=== PATIENT | male | born 1940 | race Caucasian/White ===

== ENCOUNTER 2020-11-02 06:07 | Outpatient (REF) | payer MEDICARE, SELFPAY ==
[2020-11-02 11:54] LABS: Glucose Urine UA NEG (NEG); Leukocyte Esterase Urine 2+ (NEG); Nitrite Urine NEG (NEG); Specific Gravity - Urine 1.015 (1.005-1.025); Urine Blood TRACE (NEG); Urine Ketones NEG (NEG); Urine Protein NEG (NEG-TRACE)
[2020-11-02 11:55] LABS: Hematocrit 44.9 % (42-52); Hemoglobin 15.1 g/dl (14.0-18.0); Mean Corpuscular HGB Conc 33.6 g/dl (31.0-36.0); Mean Corpuscular Hemoglobin 32.5 pg (27.0-33.0); Mean Corpuscular Volume 96.6 fL (80-98); Mean Platelet Volume 10.5 fL (9.4-12.4); Platelet Count 256 X10*3/uL (160-400); Red Blood Count 4.65 X10*6/uL (4.60-5.80); Red Cell Distribution Width 12.6 % (11.0-16.0); White Blood Count 6.5 X10*3/uL (4.8-10.8)
[2020-11-02 12:06] LABS: Appearance Urine HAZY; Color Urine YELLOW
[2020-11-02 12:14] LABS: Alanine Aminotransferase 15 U/L (0-40); Albumin Level 4.2 g/dL (3.5-5.0); Alkaline Phosphatase 62 U/L (39-117); Anion Gap 12 (12-20); Aspartate Amino Transferase 15 U/L (5-37); Bilirubin Total 0.7 mg/dL (0.0-1.0); Blood Urea Nitrogen 18 mg/dL (9-16); Calcium 9.1 mg/dL (8.4-10.2); Carbon Dioxide 24 mmol/L (22-29); Chloride 108 mmol/L (96-108); Cholesterol 163 mg/dL; Estimated Glomerular Filt Rate > 60; Glucose Fasting 93 mg/dL (60-99); HDL Cholesterol 55 mg/dL; LDL Cholesterol Calculated 94 mg/dl; Potassium 4.1 mmol/L (3.3-5.1); Sodium 140 mmol/L (135-145); Total Protein 7.2 g/dL (6.5-8.0); Triglycerides 73 mg/dL
[2020-11-02 12:27] LABS: Prostate Specific Antigen Scr 0.86 ng/mL (<0.05-4.0)
[2020-11-02 12:30] LABS: Bacteria Urine TRACE /LPF; RBC Urine 0-2 /HPF (0); Squamous Epithelial Cell Urine TRACE /LPF
== END 2020-11-02 06:08 | disposition home or self-care (01) ==
LOC: HO.HMGCLDS 06:07
PROVIDERS: PCP Internal Medicine; Visit Provider Internal Medicine
DX: Z12.5 Encounter for screening for malignant neoplasm of prostate (principal); E78.5 Hyperlipidemia, unspecified; I10 Essential (primary) hypertension
CPT/HCPCS: 36415; 80053; 80061; 81001; 84153; 85027

== ENCOUNTER 2020-11-05 06:05 | Outpatient (REF) | payer MEDICARE, SELFPAY ==
[2020-11-05 11:35] LABS: Urine Cytology See Pathology rpt
[2020-11-05 12:10] LABS: Appearance Urine HAZY; Color Urine YELLOW; Glucose Urine UA NEG (NEG); Leukocyte Esterase Urine 2+ (NEG); Nitrite Urine NEG (NEG); Urine Blood TRACE (NEG); Urine Ketones NEG (NEG); Urine Protein NEG (NEG-TRACE)
[2020-11-05 12:53] LABS: RBC Urine 0-2 /HPF (0); Squamous Epithelial Cell Urine TRACE /LPF; WBC Urine 30-49 /HPF (0-4)
[2020-11-05 12:54] LABS: Bacteria Urine 1+ /LPF; Mucus Urine 1+ /LPF
== END 2020-11-05 06:06 | disposition home or self-care (01) ==
LOC: HO.HMGCLDS 06:05
PROVIDERS: PCP Internal Medicine; Visit Provider Nurse Practitioner Family
DX: R31.29 Other microscopic hematuria (principal)
CPT/HCPCS: 81001; 87086; 87088; 87186; 88112

== ENCOUNTER 2020-11-10 13:42 | Outpatient (REF) | payer MEDICARE, SELFPAY ==
--- NOTE | ~2020-11-10 | US_ITS ---
EXAMINATION: US PELVIS LIMITED (BLADDER) CLINICAL INFORMATION: Microscopic hematuria. COMPARISON: None TECHNIQUE: Real-time imaging of the bladder. FINDINGS: BLADDER: The bladder wall appears slightly thickened. No stone or mass is seen.. Bilateral ureteral jets are demonstrated. Prevoid bladder volume is 370 mL. Postvoid bladder volume is 25 mL. The prostate gland is enlarged and protrudes into the base of the bladder. The prostate gland measures 4.6 x 5 x 4.6 cm. There is a 2 cm cyst in the prostate gland. US/US bladder IMPRESSION: Slightly thickened bladder. No significant post void bladder residual. Enlarged prostate gland that protrudes into the base of the bladder.
== END 2020-11-10 13:43 | disposition home or self-care (01) ==
LOC: HO.HMGCX 13:42
PROVIDERS: PCP Internal Medicine; Visit Provider Internal Medicine
DX: R31.29 Other microscopic hematuria (principal); N39.0 Urinary tract infection, site not specified
CPT/HCPCS: 76857

== ENCOUNTER 2020-11-16 10:00 | Outpatient (REF) | payer MEDICARE, SELFPAY ==
[2020-11-16 12:18] LABS: Appearance Urine CLEAR; Color Urine YELLOW; Glucose Urine UA NEG (NEG); Leukocyte Esterase Urine NEG (NEG); Nitrite Urine NEG (NEG); Urine Blood TRACE (NEG); Urine Ketones NEG (NEG); Urine Protein NEG (NEG-TRACE)
[2020-11-16 12:50] LABS: RBC Urine 0-2 /HPF (0); Squamous Epithelial Cell Urine 2+ /LPF; WBC Urine 0-2 /HPF (0-4)
== END 2020-11-16 10:01 | disposition home or self-care (01) ==
LOC: HO.HMGCLDS 10:00
PROVIDERS: PCP Internal Medicine; Visit Provider Internal Medicine
DX: I10 Essential (primary) hypertension (principal); E78.5 Hyperlipidemia, unspecified
CPT/HCPCS: 81001

== ENCOUNTER 2021-12-15 06:11 | Outpatient (REF) | payer MEDICARE, SELFPAY ==
[2021-12-15 11:16] LABS: Hematocrit 45.3 % (42.0-52.0); Hemoglobin 15.3 g/dl (14.0-18.0); Mean Corpuscular HGB Conc 33.8 g/dl (31.0-36.0); Mean Corpuscular Hemoglobin 31.9 pg (27.0-33.0); Mean Corpuscular Volume 94.6 fL (80.0-98.0); Mean Platelet Volume 10.4 fL (9.4-12.4); Platelet Count 273 X10*3/uL (160-400); Red Blood Count 4.79 X10*6/uL (4.60-5.80); Red Cell Distribution Width 12.6 % (11.0-16.0); White Blood Count 7.1 X10*3/uL (4.8-10.8)
[2021-12-15 11:38] LABS: Alanine Aminotransferase 15 U/L (0-40); Albumin Level 4.1 g/dL (3.5-5.0); Alkaline Phosphatase 64 U/L (39-117); Anion Gap 13 (12-20); Aspartate Amino Transferase 16 U/L (5-37); Bilirubin Total 0.5 mg/dL (0.0-1.0); Blood Urea Nitrogen 11 mg/dL (9-16); Calcium 9.1 mg/dL (8.4-10.2); Carbon Dioxide 25 mmol/L (22-29); Chloride 107 mmol/L (96-108); Cholesterol 159 mg/dL; Estimated Glomerular Filt Rate > 60; Glucose Fasting 93 mg/dL (60-99); HDL Cholesterol 53 mg/dL; LDL Cholesterol Calculated 92 mg/dl; Potassium 4.2 mmol/L (3.3-5.1); Sodium 141 mmol/L (135-145); Total Protein 7.3 g/dL (6.5-8.0); Triglycerides 72 mg/dL
[2021-12-15 12:02] LABS: Prostate Specific Antigen Scr 0.77 ng/mL (<0.05-4.0)
== END 2021-12-15 06:12 | disposition home or self-care (01) ==
LOC: HO.HMGCLDS 06:11
PROVIDERS: PCP Internal Medicine; Visit Provider Internal Medicine
DX: E78.5 Hyperlipidemia, unspecified (principal); I10 Essential (primary) hypertension
CPT/HCPCS: 36415; 80053; 80061; 84153; 85027

== ENCOUNTER 2021-12-22 12:20 | Outpatient (REF) | payer MEDICARE, SELFPAY ==
--- NOTE | ~2021-12-22 | XR_ITS ---
EXAMINATION: XR HIP, LEFT CLINICAL INFORMATION: Pain in left hip COMPARISON: None TECHNIQUE: Two views of the left hip. FINDINGS: There is moderate loss of left hip joint with subchondral cystic changes and mild sclerosis. There are periarticular enthesophytes. No visible acute fracture or dislocation. The acetabulum is unremarkable. XR/XR hip LT min 2V IMPRESSION: Moderate to severe left hip joint arthritic changes. No visible acute fracture or dislocation seen.
== END 2021-12-22 12:21 | disposition home or self-care (01) ==
LOC: HO.HMGCX 12:20
PROVIDERS: PCP Internal Medicine; Visit Provider Internal Medicine
DX: M25.552 Pain in left hip (principal)
CPT/HCPCS: 73502

== ENCOUNTER 2022-01-25 | Outpatient (REF) | payer MEDICARE, SELFPAY ==
--- NOTE | ~2022-01-25 | XR_ITS ---
EXAMINATION: XR PELVIS CLINICAL INFORMATION: Pain COMPARISON: Previous x-ray December 2021 TECHNIQUE: AP view of the pelvis. FINDINGS: There is severe bilateral hip arthritis with joint space narrowing and osteophyte formation and some subchondral cyst formation. No fracture or dislocation. There are degenerative changes of the visualized lower lumbar spine. There is evidence of atherosclerotic disease. XR/XR pelvis 1-2V IMPRESSION: Severe bilateral hip arthritis.
== END 2022-01-25 00:01 | disposition home or self-care (01) ==
LOC: HO.HOSX
PROVIDERS: Visit Provider Physician Assistant
DX: M16.12 Unilateral primary osteoarthritis, left hip (principal)
CPT/HCPCS: 72170; 99202

== ENCOUNTER 2022-01-27 09:00 | Outpatient (RCR) | payer MEDICARE, SELFPAY ==
--- NOTE | 2021-12-26 15:46 | MHC.PT.EP ---
[facility] [place] Office [place] Office [place] Office [address] [phone] F: [phone] F: [phone] F: [phone] F: [phone] Physical Therapy Plan of Care Date of Evaluation: Date of Surgery: Diagnosis: pain in L hip. Assessment: Pt is an 81 y/o male referred to PT for eval and treat of L hip pain who presents with L hip dysfunction resulting in decreased tolerance for standing, walking, and performing HH chores secondary to decreased L > R hip ROM, decreased hip strength, increased L glute and piriformis tension, gait abnormality and pain. Pt is deemed an appropriate candidate to receive skilled PT in order to address his physical limitations to improve his functional ability. Frequency and Duration: The patient will be seen 2 x / wk x 5 wks. Short Term Goals: Initiate HEP. Improve baseline pain to < 4/10; initial 6-7/10. [place] Goals: I with HEP. Pt will be able to walk 2 blocks with no difficulty; initial: quite a bit of difficulty. Pt will be able to stand 1 hour with at most a little bit of difficulty; initial: quite a bit of difficulty. Improve L hip abd MMT by at least 1/2 MMT. Treatment Plan: Modalities to reduce pain, spasms and effusion. Manual therapy to restore motion and function. Therapeutic exercise to improve strength and flexibility. Neuromuscular re-education for posture and balance. Therapeutic activities to return to functional activities of daily living. Electronically signed by: Eliazar Soni PT. Please sign and return to therapist. Thank you for your referral.
--- NOTE | 2022-01-27 16:48 | MHC.PT.DC ---
[facility] [place] Office [place] Office [place] Office [address] Rom[address] [phone] F: [phone] F: [phone] F: [phone] F: [phone] Physical Therapy Discharge Report Diagnosis: pain in L hip. Date of Surgery: Date of Evaluation: 12/26/21 Date of Discharge: 01/27/22 Treatments to Date: 9 Cancellations to Date: No Shows to Date: Discharge Status: Improved Function Independent with HEP Discharge Summary: Zheng has been an active participant in his therapy and has significantly improved his pain and tolerance for walking and standing. He persists with some discomfort though reports he is able to do everything he needs to without significant pain. Pt is in agreement with DC as he is I with his HEP and is improved of his Sx. Electronically signed by: Eliazar Soni PT. Please sign and return to therapist. Thank you for your referral.
== END 2022-01-27 16:49 | disposition home or self-care (01) ==
LOC: HO.PTCHIC 09:00
PROVIDERS: PCP Internal Medicine; Visit Provider Internal Medicine
DX: M25.552 Pain in left hip (principal)
CPT/HCPCS: 97110; 97140; 97161; 97530

== ENCOUNTER 2022-02-15 12:58 | Outpatient (REF) | payer MEDICARE, SELFPAY ==
[2022-02-15 14:29] LABS: C Reactive Protein 9.02 mg/dL (< or = 0.50)
[2022-02-15 15:31] LABS: Rheumatoid Factor < 13.0 IU/mL (<15.0)
[2022-02-16 09:08] LABS: Lyme Abs Screen <0.90 index
== END 2022-02-15 12:59 | disposition home or self-care (01) ==
LOC: HO.HMGCLDS 12:58
PROVIDERS: PCP Internal Medicine; Visit Provider Internal Medicine
DX: M10.9 Gout, unspecified (principal); M65.9 Synovitis and tenosynovitis, unspecified
CPT/HCPCS: 36415; 84550; 86140; 86431; 86617; 86618

== ENCOUNTER → 2022-02-20 10:00 | Outpatient (BNVA) | payer MEDICARE, SELFPAY | PROVIDERS: PCP Internal Medicine; Visit Provider Orthopaedic Surgery | DX: M16.12 Unilateral primary osteoarthritis, left hip (principal) | CPT/HCPCS: 99212 ==

== ENCOUNTER 2022-06-14 06:04 | Outpatient (REF) | payer MEDICARE, SELFPAY ==
[2022-06-14 11:50] LABS: Alanine Aminotransferase 13 U/L (0-40); Alkaline Phosphatase 68 U/L (39-117); Anion Gap 11 (12-20); Aspartate Amino Transferase 16 U/L (5-37); Bilirubin Total 0.7 mg/dL (0.0-1.0); Blood Urea Nitrogen 17 mg/dL (9-16); Calcium 9.3 mg/dL (8.4-10.2); Carbon Dioxide 26 mmol/L (22-29); Chloride 109 mmol/L (96-108); Cholesterol 155 mg/dL; Estimated Glomerular Filt Rate > 60; Glucose Fasting 92 mg/dL (60-99); HDL Cholesterol 48 mg/dL; LDL Cholesterol Calculated 88 mg/dl; Potassium 4.2 mmol/L (3.3-5.1); Sodium 142 mmol/L (135-145); Total Protein 6.9 g/dL (6.5-8.0); Triglycerides 96 mg/dL
== END 2022-06-14 06:05 | disposition home or self-care (01) ==
LOC: HO.HMGCLDS 06:04
PROVIDERS: PCP Internal Medicine; Visit Provider Internal Medicine
DX: E78.5 Hyperlipidemia, unspecified (principal); I10 Essential (primary) hypertension
CPT/HCPCS: 36415; 80053; 80061

== ENCOUNTER 2022-09-19 09:21 | Outpatient (AMB) | payer MEDICARE, SELFPAY ==
[2022-09-19 10:12] VITALS: BP 120/70; PULSE 56; O2SAT 98; BMI 26.3
--- NOTE | 2022-09-19 10:12 | MHC.PC.OV ---
Vital Signs 09/19/22 10:12 Height 5 ft 9 in Weight 178 lb BMI 26.3 BP 120/70 Blood Pressure Location Rt brachial Position Sitting Pulse 56 Pulse Source Pulse Oximeter Pulse Oximetry (%) 98 Oxygen Delivery Method Room Air Intake Visit Reasons: 3m follow up Intake Note: Pt is here today for 3 months follow up visit on rash and sciatica. Pt states that he used the cream he was prescribed and it cleared the rash. Allergies No Known Allergies Allergy (Verified 09/19/22 10:22) Medication List - Last Reconciled 09/19/22 by Ines Mcdowell MD aspirin (Adult Low Dose Aspirin) 81 mg PO DAILY coenzyme Q10 (CoQ-10) 100 mg PO DAILY glucosamine-chondroitin 250-200 mg (Osteo Bi-Flex) 2 tabs PO TID indomethacin ER 75 mg PO BEDTIME lovastatin 40 mg PO DAILY metoprolol succinate ER 25 mg PO DAILY triamcinolone acetonide 0.1% 1 appl topical DAILY Tobacco use date assessed: 06/20/22 Dental Screening Dental Screen Date: 09/19/22 Did you have a dental visit in the last 12 months?: Yes Did you have a dental problem in the last 6 months where you did not have access to dental care?: No Was dental information given to patient?: Patient has dentist HPI 3m follow up HPI Details Pt presents for f/u sciatica resolved. HTN and hyperlipid, stable on meds. [facility] Medical History (Updated 09/19/22 @ 10:54 by Ines Mcdowell MD) Annual physical exam Cataract HTN (hypertension) Hyperlipidemia Tobacco consumption UTI (urinary tract infection) Surgical History H/O colonoscopy Hx of hernia repair No pertinent past surgical history Family History Father Stomach cancer Mother No problems noted. Social History Housing: House Alcohol intake: never Patient Tobacco Use Status: Current someday Tobacco user Tobacco use type: Cigar e-Cigarette/Vaping Use: Never Used Current occupational status: retired Cognitive needs: No Hearing needs: No Vision needs: Yes Questionnaire Thrive Questionnaire Date Thrive assessed: 06/20/22 RADHA-7 AMB Questionnaire RADHA-7 Date RADHA - 7 assessed: 06/20/22 Source: Developed by DrsEbony Gregory, Angelica Lundberg, Joce Horne and colleagues, with an educational digna from [employer]. Review of Systems Const All systems reviewed & are unremarkable except as noted in HPI and below Reports no additional complaints Eyes Reports no additional complaints ENT Reports no additional complaints Card Reports no additional complaints Resp Reports no additional complaints GI Reports no additional complaints Physical exam (Primary Care) Vital Signs: Last Vital Signs Pulse 56 09/19/22 10:12 BP 120/70 09/19/22 10:12 Pulse Ox 98 09/19/22 10:12 Oxygen Delivery Method Room Air 09/19/22 10:12 BMI result Body Mass Index 26.3 Tobacco/Smoking Status: Tobacco use Status Tobacco use date assessed 06/20/22 09/19/22 10:13 Patient Tobacco Use Status Current someday Tobacco 09/19/22 10:13 Tobacco use type Cigar 09/19/22 10:13 e-Cigarette/Vaping Use Never Used 09/19/22 10:13 Thrive Assessment: Date of Thrive Assessment Date Thrive assessed 06/20/22 09/19/22 10:13 HENMT Head: Yes normal to inspection Face and sinus: Yes normal facial exam Neck Neck: Yes supple Resp Effort & Inspection: normal respiratory effort Auscultation: clear to auscultation bilaterally Cardio Rhythm: regular rhythm Heart sounds: S1 normal heart sound present and S2 normal heart sound present Assessment and Plan Assessment & Plan (1) Osteoarthritis of left hip: Code(s): M16.12 - Unilateral primary osteoarthritis, left hip Plan: f/u with ortho (2) Hyperlipidemia: Code(s): E78.5 - Hyperlipidemia, unspecified Plan: cont statin (3) HTN (hypertension): Code(s): I10 - Essential (primary) hypertension Plan: cont Metoprolol (4) Annual physical exam: Code(s): Z00.00 - Encounter for general adult medical examination without abnormal findings (5) Gout: Code(s): M10.9 - Gout, unspecified Orders: Orders Comprehensive Geraldine. Panel Fast 6 Months E78.5 - Hyperlipidemia, unspecified, I10 - Essential (primary) hypertension, M10.9 - Gout, unspecified, N40.0 - Benign prostatic hyperplasia without lower urinary tract symptoms, Z00.00 - Encounter for general adult medical examination without abnormal findings Lipid Panel 6 Months E78.5 - Hyperlipidemia, unspecified, I10 - Essential (primary) hypertension, M10.9 - Gout, unspecified, N40.0 - Benign prostatic hyperplasia without lower urinary tract symptoms, Z00.00 - Encounter for general adult medical examination without abnormal findings PSA,Total (Free>4and<10) 6 Months E78.5 - Hyperlipidemia, unspecified, I10 - Essential (primary) hypertension, M10.9 - Gout, unspecified, N40.0 - Benign prostatic hyperplasia without lower urinary tract symptoms, Z00.00 - Encounter for general adult medical examination without abnormal findings Complete Blood Count Auto Diff 6 Months E78.5 - Hyperlipidemia, unspecified, I10 - Essential (primary) hypertension, M10.9 - Gout, unspecified, N40.0 - Benign prostatic hyperplasia without lower urinary tract symptoms, Z00.00 - Encounter for general adult medical examination without abnormal findings Uric Acid 6 Months M10.9 - Gout, unspecified Coding Level of Care Code Est Pt Level 4 (12329) Diagnoses Osteoarthritis of left hip M16.12 Hyperlipidemia E78.5 HTN (hypertension) I10 Annual physical exam Z00.00 Gout M10.9
== END 2022-09-19 10:55 | disposition home or self-care (01) ==
PROVIDERS: Visit Provider Internal Medicine
DX: M16.12 Unilateral primary osteoarthritis, left hip (principal); E78.5 Hyperlipidemia, unspecified; I10 Essential (primary) hypertension; Z00.00 Encounter for general adult medical examination without abnormal findings; M10.9 Gout, unspecified
CPT/HCPCS: 99214

== ENCOUNTER 2022-10-20 08:00 | Outpatient (RCR) | payer MEDICARE, SELFPAY ==
--- NOTE | 2022-08-31 15:22 | MHC.PT.EP ---
[facility] [place] Office [place] Office [place] Office [address]ober[address] Romero [address] [phone] F: [phone] F: [phone] F: [phone] F: [phone] Physical Therapy Plan of Care Date of Evaluation: Date of Surgery: Diagnosis: Sciatica Assessment: Pt is an 81 y/o male referred to PT for eval and treat of sciatica who presents with lumbar and hip dysfunction resulting in decreased tolerance for standing and walking, performing squatting and heavy HH tasks, as well as performing LE dressing secondary to decreased B L > R hip mobility and strength, decreased trunk mobility, decreased posture, decreased core strength, gait abnormality, and pain. Pt is deemed an appropriate candidate to receive skilled PT services to address their physical impairments in order to improve their functional ability. Frequency and Duration: The patient will be seen 2 x / wk x 5 wks. Short Term Goals: Initiate Home program. improve baseline pain to < 4/10 with activities; initial 6/10. [facility] Goals: I with home program. Improve core strength to at least good (+) initial: fair. Improve LEFI outcome measure by alt least 1/2MMT grade. Pt will be able to walk 1 mile with manages Sx; initial: unable or with extreme difficulty. Treatment Plan: Modalities to reduce pain, spasms and effusion. Manual therapy to restore motion and function. Therapeutic exercise to improve strength and flexibility. Neuromuscular re-education for posture and balance. Therapeutic activities to return to functional activities of daily living. Electronically signed by: Eliazar Soni PT. Please sign and return to therapist. Thank you for your referral.
--- NOTE | 2022-10-20 08:59 | MHC.PT.DC ---
[facility] [place] Office [place] Office [place] Office [address]oberto Romero 140 [facility] [phone] F: [phone] F: [phone] F: [phone] F: [phone] Physical Therapy Discharge Report Diagnosis: Sciatica Date of Surgery: Date of Evaluation: 08/31/22 Date of Discharge: 10/20/22 Treatments to Date: 12 Cancellations to Date: No Shows to Date: Discharge Status: Improved Function Independent with HEP Discharge Summary: Zheng has been an active participant in his therapy. He has met most of his goals and continues to show improved tolerance for hip exercises. He reports that he will have his L KELBY on 11/24/22. Continued compliance to his HEP will prepare him for surgery and help him become more familiar with the exercises he will be asked to do post-op. Electronically signed by: Eliazar Soni PT. Please sign and return to therapist. Thank you for your referral.
== END 2022-10-20 08:59 | disposition home or self-care (01) ==
LOC: HO.PTCHIC 08:00
PROVIDERS: PCP Internal Medicine; Visit Provider Internal Medicine
DX: M54.30 Sciatica, unspecified side (principal)
CPT/HCPCS: 97110; 97140; 97161; 97530

== ENCOUNTER 2022-10-23 08:49 | Outpatient (AMB) | payer MEDICARE, SELFPAY ==
--- NOTE | 2022-10-23 09:29 | AM.OFFWIN_ITS ---
Intake Vital Signs 10/23/22 09:38 Weight 176 lb BP 120/80 Blood Pressure Location Rt brachial Position Sitting Pulse 72 Pulse Source Pulse Oximeter Pulse Oximetry (%) 97 Oxygen Delivery Method Room Air Intake Visit Reasons: EP skin irritation upper thigh both legs (lobby) Intake Note: Patient here for skin irritation on both upper thighs which has been present for a couple weeks. Patient Tobacco Use Status: Current someday Tobacco user Allergies No Known Allergies Allergy (Verified 10/23/22 09:39) Do you need a note to return to daycare/school/sports/work: No HPI EP skin irritation upper thigh both legs (lobby) HPI Details 82-year-old male presents to the office for a sick visit. Patient is reporting a rash in the upper thigh bilaterally. He cannot recall when the sym ptoms started. [facility] Medical History (Updated 10/23/22 @ 10:05 by Flo Guevara MD) Annual physical exam Cataract HTN (hypertension) Hyperlipidemia Tobacco consumption UTI (urinary tract infection) Surgical History H/O colonoscopy Hx of hernia repair No pertinent past surgical history Family History Father Stomach cancer Mother No problems noted. Social History Housing: House Alcohol intake: never Patient Tobacco Use Status: Current someday Tobacco user Tobacco use type: Cigar e-Cigarette/Vaping Use: Never Used Current occupational status: retired Cognitive needs: No Hearing needs: No Vision needs: Yes Physical Exam Vital Signs: Last Vital Signs Pulse 72 10/23/22 09:38 BP 120/80 10/23/22 09:38 Pulse Ox 97 10/23/22 09:38 Oxygen Delivery Method Room Air 10/23/22 09:38 Extrem Other: Groin: Bilateral: Erythematous rash with clear borders and heaped up margins. Minimal scaling present. Assessment & Plan Assessment & Plan (1) Tinea cruris: Code(s): B35.6 - Tinea cruris Plan: Ketoconazole ointment prescribed. Patient was advised to keep the area dry. Coding Level of Care Code Est Pt Level 3 (73568) Diagnoses Tinea cruris B35.6
[2022-10-23 09:38] VITALS: BP 120/80; PULSE 72; O2SAT 97
== END 2022-10-23 10:18 | disposition home or self-care (01) ==
PROVIDERS: PCP Internal Medicine; Visit Provider Internal Medicine
DX: B35.6 Tinea cruris (principal)
CPT/HCPCS: 99213

== ENCOUNTER 2022-11-02 10:00 | Outpatient (RCR) | payer MEDICARE, SELFPAY | END 2022-11-02 11:59 | disposition home or self-care (01) | LOC: HO.PTCHIC 10:00 | PROVIDERS: PCP Internal Medicine; Visit Provider Orthopaedic Surgery | DX: M16.12 Unilateral primary osteoarthritis, left hip (principal) | CPT/HCPCS: 97110; 97116; 97161 ==

== ENCOUNTER 2023-01-23 11:00 | Outpatient (RCR) | payer MEDICARE, SELFPAY | END 2023-01-26 07:33 | disposition home or self-care (01) | LOC: HO.PTCHIC 11:00 | PROVIDERS: PCP Internal Medicine; Visit Provider Orthopaedic Surgery | DX: Z96.642 Presence of left artificial hip joint (principal) | CPT/HCPCS: 97110; 97112; 97116; 97161; 97530 ==

== ENCOUNTER 2023-01-31 08:30 | Outpatient (RCR) | payer MEDICARE, SELFPAY | END 2023-08-07 15:31 | disposition home or self-care (01) | LOC: HO.OT 08:30 | PROVIDERS: PCP Internal Medicine; Visit Provider Physician Assistant | DX: R20.0 Anesthesia of skin (principal); R20.2 Paresthesia of skin | CPT/HCPCS: 97035; 97110; 97165 ==

== ENCOUNTER 2023-03-21 06:42 | Outpatient (REF) | payer MEDICARE, SELFPAY ==
[2023-03-21 11:34] LABS: MANUAL DIFF FLAG NO
[2023-03-21 11:47] LABS: Basophils Absolute Auto 0.1 X10*3/uL (0.0-0.2); Basophils Percent Auto 0.7 % (0-2); Eosinophils Absolute Auto 0.4 X10*3/uL (0.0-0.4); Eosinophils Percent Auto 5.6 % (0-4); Hematocrit 47.2 % (42.0-52.0); Hemoglobin 15.9 g/dl (14.0-18.0); Imm Gran Abs Auto 0.02 X10*3/uL (0.00-0.03); Imm Gran Pct Auto 0.3 % (0.0-0.4); Lymphocytes Absolute Auto 2.2 X10*3/uL (1.2-4.9); Lymphocytes Percent Auto 30.6 % (20-40); Mean Corpuscular HGB Conc 33.7 g/dl (31.0-36.0); Mean Corpuscular Hemoglobin 32.1 pg (27.0-33.0); Mean Corpuscular Volume 95.4 fL (80.0-98.0); Mean Platelet Volume 11.2 fL (9.4-12.4); Monocytes Absolute Auto 0.7 X10*3/uL (0.1-1.2); Monocytes Percent Auto 9.4 % (2-11); Neutrophils Absolute Auto 3.8 x10*3/uL (2.0-8.3); Neutrophils Percent Auto 53.4 % (45-73); Platelet Count 262 X10*3/uL (160-400); Red Blood Count 4.95 X10*6/uL (4.60-5.80); Red Cell Distribution Width 12.6 % (11.0-16.0); White Blood Count 7.2 X10*3/uL (4.8-10.8)
[2023-03-21 12:10] LABS: Alanine Aminotransferase 13 U/L (0-40); Albumin Level 4.2 g/dL (3.5-5.0); Alkaline Phosphatase 71 U/L (39-117); Anion Gap 15 (12-20); Aspartate Amino Transferase 18 U/L (5-37); Bilirubin Total 0.6 mg/dL (0.0-1.0); Blood Urea Nitrogen 19 mg/dL (9-16); Calcium 9.6 mg/dL (8.4-10.2); Carbon Dioxide 23 mmol/L (22-29); Chloride 107 mmol/L (96-108); Cholesterol 146 mg/dL (<200); Estimated Glomerular Filt Rate > 60; Glucose Fasting 93 mg/dL (60-99); HDL Cholesterol 54 mg/dL (>40); LDL Cholesterol Calculated 76 mg/dL (<100); Potassium 4.1 mmol/L (3.3-5.1); Sodium 141 mmol/L (135-145); Total Protein 7.5 g/dL (6.5-8.0); Triglycerides 81 mg/dL (<150); Uric Acid 7.6 mg/dL (3.4-7.0)
[2023-03-21 12:14] LABS: PSA,Total (Free>4and<10) 0.91 ng/mL (0.00-4.00)
== END 2023-03-21 06:43 | disposition home or self-care (01) ==
LOC: HO.HMGCLDS 06:42
PROVIDERS: PCP Internal Medicine; Visit Provider Internal Medicine
DX: Z00.00 Encounter for general adult medical examination without abnormal findings (principal); E78.5 Hyperlipidemia, unspecified; I10 Essential (primary) hypertension; N40.0 Benign prostatic hyperplasia without lower urinary tract symptoms; M10.9 Gout, unspecified; Z12.5 Encounter for screening for malignant neoplasm of prostate
CPT/HCPCS: 36415; 80053; 80061; 84153; 84550; 85025

== ENCOUNTER 2023-03-26 08:44 | Outpatient (AMB) | payer MEDICARE, SELFPAY ==
[2023-03-26 08:47] VITALS: BP 118/66; PULSE 68; O2SAT 98; BMI 26.4
--- NOTE | 2023-03-26 08:47 | AM.OFFVISMDC ---
Intake Vital Signs 03/26/23 08:47 Height 5 ft 9 in Weight 179 lb BMI 26.4 BP 118/66 Blood Pressure Location Rt brachial Position Sitting Pulse 68 Pulse Source Pulse Oximeter Pulse Oximetry (%) 98 Oxygen Delivery Method Room Air Intake Visit Reasons: SWV Intake Note: Pt is here today for AWV. Allergies No Known Allergies Allergy (Verified 03/26/23 08:58) Medication List - Last Reconciled 03/26/23 by Ines Mcdowell MD amoxicillin 2,000 mg (4 x 500 mg) PO ONCE 1 day aspirin (Adult Low Dose Aspirin) 81 mg PO DAILY coenzyme Q10 (CoQ-10) 100 mg PO DAILY glucosamine-chondroitin 250-200 mg (Osteo Bi-Flex) 2 tabs PO TID ketoconazole 2% 1 appl topical DAILY lovastatin 40 mg PO DAILY metoprolol succinate ER 25 mg PO DAILY triamcinolone acetonide 0.1% 1 appl topical DAILY HPI SWV HPI Details Initiated the conversation about Advanced Directives. Advanced Directives help? patients prepare for current and future decisions about their medical treatment? and place of care. Discussed with patient that it is a process where a patients? current condition and prognosis are reviewed, their wishes for information? regarding their illness are elicited, and likely medical dilemmas are presented? and options discussed. The form can be amended as needed, reviewed yearly and? make changes as needed IPPE/AWV ? year old presents? for her ? Annual? Wellness Visit, initial visit.? Medical / Social History Reviewed? Past Medical History ?Yes? . ? [place]? of Care / Care Team list updated ?Yes . ? Surgical/Hospitalization? History ?Yes . ? Current Medications? (including OTC and supplements) ?Yes . ? Family History ?Yes? . ? Tobacco? Control form ?Yes . ? AUDIT-C (Alcohol use) form? ?Yes . ? Illicit drug use in Social? History ?Yes . ? Current diagnosis of? depression? ?No ? Appropriate PHQ2/PHQ9? completed ?Yes . ? Data entered by ?Medical? Circular Clerk and reviewed by provider ? Fall Risk ? Fall? History? Have you had any falls with? injury in the past year? ?No . ? Have you had two or more? falls in the past year? ?No . ? Fall Risk Assessment: ?No? falls in the past year . ? HRA filled out by? the patient, reviewed by Provider and scanned. ? IPPE/AWV ? Balance? [place]? ?Yes . ? Tandem? walk ?Yes . ? Walk and? Turn ?Yes . ? Rise from? sit to stand ?Yes . ?Vision? Corrective? lens ?Yes ? Vision? screen ? Up-to-date, has an appointment [] for vision? screening and glaucoma screening ?Hearing? Whisper? test ?pass .? Initiated the conversation about Advanced Directives. Advanced Directives help? patients prepare for current and future decisions about their medical treatment? and place of care. Discussed with patient that it is a process where a patients? current condition and prognosis are reviewed, their wishes for information? regarding their illness are elicited, and likely medical dilemmas are presented? and options discussed. The form can be amended as needed, reviewed yearly and? make changes as needed Written? Plan?Completed. See Patient? Documents. [facility] Medical History (Updated 03/26/23 @ 09:54 by Ines Mcdowell MD) Annual physical exam Cataract UTI (urinary tract infection) Tobacco consumption Hyperlipidemia HTN (hypertension) Surgical History Hx of hernia repair H/O colonoscopy No pertinent past surgical history Family History Father Stomach cancer Mother No problems noted. Social History Housing: House Alcohol intake: never Patient Tobacco Use Status: Current someday Tobacco user Tobacco use type: Cigar e-Cigarette/Vaping Use: Never Used Current occupational status: retired Cognitive needs: No Hearing needs: No Vision needs: Yes Questionnaire Medicare Wellness Checkup What is your age?: 80 or older What gender do you identify with?: male During the past 4 weeks, how much have you been bothered by emotional problems such as feeling anxious, depressed, irritable, sad or downhearted, and blue?: not at all During the past 4 weeks, has your physical & emotional health limited your social activities with family, friends, neighbors, or groups?: not at all During the past 4 weeks, how much bodily pain have you generally had?: no pain During the past 4 weeks, was someone available to help you if you needed & wanted help?: yes, quite a bit During the past 4 weeks, what was the hardest physical activity you could do for at least 2 minutes?: moderate Can you get to places out of walking distance without help? (For eg., can you travel alone on buses, taxis or drive your car?): Yes Can you go shopping for groceries or clothes without someone's help?: Yes Can you prepare your own meals?: Yes Can you do your housework without help?: Yes Because of any health problems, do you need the help of another person with your personal care needs such as eating, bathing, dressing or getting around the house?: No Can you handle your own money without help?: Yes During the past 4 weeks, how would you rate your health in general?: very good During the past 4 weeks how have things been going for you?: pretty well Are you having difficulties driving your car?: no Do you always fasten your seat belt when you are in a car?: yes, usually During past 4 weeks, have you been bothered by the following: never: Sexual problems?, Trouble eating well?, Teeth or denture problems? and Problems using the telephone? and seldom: Falling or dizzy when standing up and Tiredness or fatigue? Have you fallen 2 or more times in the past year?: No Are you afraid of falling?: No Are you a smoker?: yes, but I'm not ready to quit During the past 4 weeks, how many drinks of wine, beer, or other alcoholic beverages did you have?: no alcohol at all Do you exercise for about 20 minutes 3 or more times a week?: yes, most of the time Have you been given information to help with the following?: yes: Hazards in your house that might hurt you? and no: Keeping track of your medications? How often do you have trouble taking medicines the way you have been told to take them?: I always take medicine as prescribed How confident are you that you can control & manage most of your health problems?: very confident What is your race?: White Mini Mental State Exam (MMSE) Orientation What is the (year) (season) (date) (day) (month)?: year, season, date, day and month Where are we (state) (county) (town or city) (hospital) (floor)?: state, county, town or city, hospital/clinic and floor Registration Name of 3 unrelated objects clearly and slowly, then ask patient to repeat all 3 of them. (1st repeat determines score. Make sure they can repeat all three): object 1, object 2 and object 3 Attention & Calculation (CHOOSE ONE) Spell WORLD backwards (DLROW): 5 letters Recall Ask patient to repeat the 3 items from question #3.: object 1, object 2 and object 3 Language Show patient a wristwatch & ask what it is. Repeat for pencil.: watch and pencil Ask the patient to repeat the phrase 'No ifs, ands, or buts' after you.: correct Ask the patient to 'take a piece of paper with their right hand' 'fold paper in half' 'place paper on floor': take paper in right hand, fold paper in half and place paper on floor Print the sentence 'CLOSE YOUR EYES' on a piece. If patient actually closes eyes then score.: followed written direction Give patient a blank piece of paper & ask to write a sentence. Score if it contains a noun & verb.: sentence contains subject and verb Score Score: 29 Activity of Daily Living Bathing - sponge bath, tub bath or shower: receives no assistance (gets in/out by self, if usual bathing means Dressing - getting clothes from closets & drawers, including inner/outer garments & fasteners.: gets clothes & gets completely dressed without help Toileting - going to the 'toilet room' for urine/bowel elimination & cleaning self/arranging clothes: goes to toilet room, cleans self, arranges clothes without help Transfer: moves in & out of bed and chair without help (may use support object) Continence: controls urination/bowel movements completely by self Feeding: feeds self without help Total Score: 0 Information obtained from: patient Using telephone: independent Traveling: independent Shopping: independent Preparing meals: independent Housework: independent Taking medicine: independent Managing money: independent PHQ-9 Over the last 2 weeks, how often have you been bothered by any of the following problems? 1. Little interest or pleasure in doing things: not at all 2. Feeling down, depressed, or hopeless: not at all 3. Trouble falling or staying asleep, or sleeping too much: not at all 4. Feeling tired or having little energy: not at all 5. Poor appetite or overeating: not at all 6. Feeling bad about yourself - or that you are a failure or have let yourself or your family down: not at all 7. Trouble concentrating on things, such as reading the newspaper or watching television: not at all 8. Moving or speaking so slowly that other people could have noticed. Or the opposite - being so fidgety or restless that you have been moving around a lot more than usual: not at all 9. Thoughts that you would be better off or of hurting yourself in some way: not at all Total score: 0 Depression Screening Interpretation: Negative Depression Screening Done: Yes Source: Developed by Drs. Vivek Gregory, Angelica Lundberg, Joce Horne and colleagues, with an educational digna from [employer]. Review of Systems Const All systems reviewed & are unremarkable except as noted in HPI and below Reports no additional complaints Eyes Reports no additional complaints ENT Reports no additional complaints Card Reports no additional complaints Resp Reports no additional complaints GI Reports no additional complaints Reports no additional complaints Musc Reports no additional complaints Skin/Breast Reports system reviewed and no additional complaints, except as documented Physical Exam Vital Signs: Last Vital Signs Pulse 68 03/26/23 08:47 BP 118/66 03/26/23 08:47 Pulse Ox 98 03/26/23 08:47 Oxygen Delivery Method Room Air 03/26/23 08:47 BMI result Body Mass Index 26.4 Const General: no acute distress HEENT Head: Yes normal to inspection Ears: hearing grossly normal bilaterally Neck Neck: Yes no lymphadenopathy and Yes supple Resp Effort & Inspection: normal respiratory effort Auscultation: clear to auscultation bilaterally Cardio Rhythm: regular rhythm Heart sounds: S1 normal heart sound present, S2 normal heart sound present and Murmur heart sound present systolic II/ GI Inspection: Yes normal to inspection Palpation (GI): Soft to palpation Percussion: Yes normal to percussion Auscultation: normal bowel sounds Extrem General: Yes no clubbing, cyanosis or edema Assessment & Plan Assessment & Plan (1) Heart murmur: Code(s): R01.1 - Cardiac murmur, unspecified Plan: Obtain echocardiogram to evaluate (2) Hyperlipidemia: Code(s): E78.5 - Hyperlipidemia, unspecified Plan: Continue statin (3) HTN (hypertension): Code(s): I10 - Essential (primary) hypertension Plan: Continue metoprolol (4) Annual physical exam: Code(s): Z00.00 - Encounter for general adult medical examination without abnormal findings Plan: Well-balanced diet regular physical activity discussed with the patient. Tobacco quitting discussed with the patient. Return in 1 year or p.r.n. Orders: Orders CA echo transthoracic complete Today R01.1 - Cardiac murmur, unspecified Comprehensive [place]. Panel Fast 365 Days E78.5 - Hyperlipidemia, unspecified, I10 - Essential (primary) hypertension, Z00.00 - Encounter for general adult medical examination without abnormal findings Complete Blood Count Auto Diff 365 Days E78.5 - Hyperlipidemia, unspecified, I10 - Essential (primary) hypertension, Z00.00 - Encounter for general adult medical examination without abnormal findings PSA,Total (Free>4and<10) 365 Days E78.5 - Hyperlipidemia, unspecified, I10 - Essential (primary) hypertension, Z00.00 - Encounter for general adult medical examination without abnormal findings Lipid Panel 365 Days E78.5 - Hyperlipidemia, unspecified, I10 - Essential (primary) hypertension, Z00.00 - Encounter for general adult medical examination without abnormal findings Medications: Refilled amoxicillin please take 4 tabs approx 45 minutes before dental procedure 2,000 mg (4 x 500 mg) PO ONCE 4 tabs 1RF 1 day Quality Reporting (2019) Depression/Bipolar (159/160/161/177) PHQ-9: Total score: 0 Coding Level of Care Code Medicare Subsequent (G0439) Diagnoses Heart murmur R01.1 Hyperlipidemia E78.5 HTN (hypertension) I10 Annual physical exam Z00.00 CPT Codes Advance Care Planning - Advance Care Planning discussion: On file, no changes ([id number]) Advance Care Planning - Time spent: 1-15 minutes, on File ([id number]) Advance Care Planning Advance Care Planning discussion: On file, no changes Date of discussion: 03/26/23 Forms completed: MOLST Time spent: 1-15 minutes, on File
== END 2023-03-26 10:09 | disposition home or self-care (01) ==
PROVIDERS: PCP Internal Medicine; Visit Provider Internal Medicine
DX: R01.1 Cardiac murmur, unspecified (principal); E78.5 Hyperlipidemia, unspecified; I10 Essential (primary) hypertension; Z00.00 Encounter for general adult medical examination without abnormal findings
CPT/HCPCS: 1123F; G0439

== ENCOUNTER → 2023-03-29 09:29 | Outpatient (REF) | payer MEDICARE, SELFPAY ==
--- NOTE | 2023-03-29 09:32 | CA_ITS ---
Transthoracic Echocardiogram Patient (Last, First, Middle): Zheng Juarez T Gender: Male Date of : 1940 Age: 82 Procedure Date: 03/29/2023 Procedure Type: Transthoracic Echocardiogram Location: OP Height: 175.26 cm Weight: 81.19 kg BSA: 1.97 m2 Heart Rate: 63 bpm BP: 118 / 66 mmHg Cephalometric Analyst: SB Referring MD: Ines Mcdowell MD Symptoms: R01.1 - Cardiac murmur, unspecified Study Quality: Adequate ECG Rhythm: Sinus Conclusions: - The left ventricular systolic function is severely decreased. The visually estimated ejection fraction is between 25-30%. - No obvious valvular pathology seen on this study. Findings Left Ventricle Normal left ventricular cavity size. The left ventricular systolic function is severely decreased. The visually estimated ejection fraction is between 25-30%. There is severe global hypokinesis. There is paradoxical septal motion consistent with a left bundle branch block. Evidence suggests grade I (mild) diastolic dysfunction. There is severe septal asymmetric hypertrophy. LV peak GLS -12.3%. Right Ventricle Normal right ventricular cavity size. There is low normal right ventricular systolic function. Atria Both atria are normal in size. Aortic Valve There is a normal trileaflet aortic valve. There is mild calcification of the aortic valve. There is no aortic valve stenosis. There is no aortic valve regurgitation. Mitral Valve There is mild anterior mitral leaflet thickening. There is mild mitral annular calcification. There is no mitral valve regurgitation. There is no mitral valve stenosis. Pulmonic Valve The pulmonic valve is likely normal. Tricuspid Valve There is mild tricuspid valve regurgitation. There is no evidence of pulmonary hypertension. Great Vessels The asc aorta and aortic arch are normal in size. Venous The inferior vena cava is normal in size and collapses greater than 50% with inspiration. Pericardium/Pleural There is no evidence of pericardial effusion. Prior Study Comparison No prior study available for comparison. Recommendations, Care & Conclusions No obvious valvular pathology seen on this study. Measurements 2D Linear Measurements IVSd: 1.38 0.6-0.9/0.6-1.0 cm LVIDd: 4.93 3.9-5.3/4.2-5.9 cm LVIDd Index: 2.50 2.4-3.2/2.2-3.1 cm/m2 LVIDs: 4.07 2.0-3.6 cm LVPWd: 0.71 0.7-1.1 cm LA Diam: 4.30 2.7-3.8/3.0-4.0 cm LAIDs Index: 2.18 1.5-2.3 cm/m2 LV Mass: 234.86 67-162/88-224 g LV Mass Index: 119.22 43-95/49-115 g/m2 LVOT Diam: 2.40 3.0+(-)1.3 cm 2D Systolic Function EF 4C: 29.20 >55% EF 2C: 32.20 >55% EF BiP: 31.40 >55% Mitral Valve MV Pk E: 0.33 MV PK A: 1.08 MV Decel Time: 89.00 E/A: 0.30 PHT: 26.00 MVA PHT: 8.46 Decel [place]: 3.65 Aortic Valve AoV Pk Dany: 1.04 AoV Mn Dany: 0.80 AoV VTI: 0.24 AoV Pk Grad: 4.00 Aov Mn Grad: 3.00 BHARTI Cont.VTI: 2.72 LVOT LVOT Pk Dany: 0.74 LVOT Mn Dany: 0.50 LVOT VTI: 0.14 LVOT Pk Grad: 2.00 LVOT Mn Grad: 1.00 LVOT Diam: 2.40 LVOT Area: 4.52 Diastolic Function MV Pk E: 0.33 MV Pk A: 1.08 E/A: 0.30 Right Ventricle TAPSE (mm): 18.00 TVS' Dany: 9.14 Tricuspid Valve TR Pk Dany: 2.27 TR Pk Grad: 21.00 RA Press: 3.00 RVSP: 24.00 Great Vessels Aorta Sinus of Valsalva: 3.90 2.0-3.5 cm Ao Asc: 3.50 2.1-3.4 cm Ao Arch: 3.10 Pulmonary Valve PV Pk Dany: 1.68 Peak PV Grad: 11.00 Updated in Other Vendor System with Status of Final Andrés Muse MD electronically signed on 03/30/2023 2:27:27 PM with status of Final
== END ==
LOC: HO.CARD 09:29
PROVIDERS: PCP Internal Medicine; Visit Provider Internal Medicine
DX: R01.1 Cardiac murmur, unspecified (principal)
CPT/HCPCS: 93306; 93356

== ENCOUNTER → 2023-03-29 09:32 | Outpatient (BNV) | payer MEDICARE, SELFPAY | PROVIDERS: PCP Internal Medicine; Visit Provider Internal Medicine | DX: I36.1 Nonrheumatic tricuspid (valve) insufficiency (principal); I34.81 Nonrheumatic mitral (valve) annulus calcification | CPT/HCPCS: 93306 ==

== ENCOUNTER 2023-04-20 13:41 | Outpatient (AMB) | payer MEDICARE, SELFPAY ==
[2023-04-20 14:20] VITALS: BP 124/78; PULSE 68; O2SAT 98; BMI 26.4
--- NOTE | 2023-04-20 14:20 | A.OFFPC_ITS ---
Vital Signs 04/20/23 14:20 Height 5 ft 9 in Weight 179 lb BMI 26.4 BP 124/78 Blood Pressure Location Lt brachial Position Sitting Pulse 68 Pulse Source Pulse Oximeter Pulse Oximetry (%) 98 Oxygen Delivery Method Room Air Intake Visit Reasons: Follow up on Echo results Intake Note: Pt is here today for a follow up visit on Echo results. Allergies No Known Allergies Allergy (Verified 04/20/23 14:27) Tobacco use date assessed: 04/20/23 Dental Screening Dental Screen Date: 04/20/23 Did you have a dental visit in the last 12 months?: Yes Did you have a dental problem in the last 6 months where you did not have access to dental care?: No Was dental information given to patient?: Patient has dentist HPI Follow up on Echo results HPI Details PATIENT PRESENTS TO DISCUSS RESULTS. ECHOCARDIOGRAM showed left ventricular systolic function 25-30%, global hypokinesis, mild diastolic dysfunction no valvular pathology. Patient walks twice a week but not at fast [place]. He denies chest pain shortness for breath palpitation PND orthopnea recent viral infections. [facility] Medical History (Updated 04/20/23 @ 15:10 by Ines Mcdowell MD) Annual physical exam Cataract UTI (urinary tract infection) Tobacco consumption Hyperlipidemia HTN (hypertension) Surgical History Hx of hernia repair H/O colonoscopy No pertinent past surgical history Family History Father Stomach cancer Mother No problems noted. Social History Housing: House Alcohol intake: never Patient Tobacco Use Status: Current someday Tobacco user Tobacco use type: Cigar e-Cigarette/Vaping Use: Never Used Current occupational status: retired Cognitive needs: No Hearing needs: No Vision needs: Yes Questionnaire PHQ-9 Over the last 2 weeks, how often have you been bothered by any of the following problems? 1. Little interest or pleasure in doing things: not at all 2. Feeling down, depressed, or hopeless: not at all 3. Trouble falling or staying asleep, or sleeping too much: not at all 4. Feeling tired or having little energy: not at all 5. Poor appetite or overeating: not at all 6. Feeling bad about yourself - or that you are a failure or have let yourself or your family down: not at all 7. Trouble concentrating on things, such as reading the newspaper or watching television: not at all 8. Moving or speaking so slowly that other people could have noticed. Or the opposite - being so fidgety or restless that you have been moving around a lot more than usual: not at all 9. Thoughts that you would be better off or of hurting yourself in some way: not at all Total score: 0 Depression Screening Interpretation: Negative Depression Screening Done: Yes Source: Developed by Drs. Vivek Gregory, Angelica Lundberg, Joce Horne and colleagues, with an educational digna from [employer]. Thrive Questionnaire Date Thrive assessed: 06/20/22 I am a: Patient What is your living situation today?: I have a steady place to live Within the past 12 months, did the food you bought not last and you didn't have the money to get more?: Never true Within the past 12 months, did you worry whether your food would run out before you got money to buy more?: Never true Do you have trouble paying for medicines?: No Do you have trouble getting transportation to medical appointments?: No Do you have trouble paying your heating and electricity bill?: No Do you have trouble taking care of your child, family member or friend?: No Do you have trouble with day-to-day activities such as bathing, preparing meals, shopping, managing finances, etc.?: No Are you currently unemployed and looking for a job?: No Are you interested in more education?: No Please select the resources that you would like help with: None Currently or been in a relationship where the following occur: no concerns reported THRIVE Score: 0 RADHA-7 AMB Questionnaire RADHA-7 Date RADHA - 7 assessed: 04/20/23 Feeling nervous, anxious, or on edge: 0 = Not at all Not being able to stop or control worryin = Not at all Worrying too much about different things: 0 = Not at all Trouble relaxin = Not at all Being so restless that it is hard to sit still: 0 = Not at all Becoming easily annoyed or irritable: 0 = Not at all Feeling afraid as if something awful might happen: 0 = Not at all Total RADHA-7 score (0-4 normal; 5-9 mild; 10-14 moderate; 15-21 severe): 0 Source: Developed by Drs. Vivek Gregory, Angelica Lundberg, Joce Horne and colleagues, with an educational digna from [employer]. Review of Systems Const All systems reviewed & are unremarkable except as noted in HPI and below Reports no additional complaints Eyes Reports no additional complaints ENT Reports no additional complaints Card Reports no additional complaints Resp Reports no additional complaints GI Reports no additional complaints Reports no additional complaints Musc Reports no additional complaints Physical exam (Primary Care) Vital Signs: Last Vital Signs Pulse 68 04/20/23 14:20 BP 124/78 04/20/23 14:20 Pulse Ox 98 04/20/23 14:20 Oxygen Delivery Method Room Air 04/20/23 14:20 BMI result Body Mass Index 26.4 Tobacco/Smoking Status: Tobacco use Status Tobacco use date assessed 04/20/23 04/20/23 14:28 Patient Tobacco Use Status Current someday Tobacco 04/20/23 14:20 Tobacco use type Cigar 04/20/23 14:20 e-Cigarette/Vaping Use Never Used 04/20/23 14:20 PHQ-9: PHQ-9 Score PHQ-9: Total score 0 04/20/23 14:38 Depression Screening Interpretation: Negative Thrive Assessment: Date of Thrive Assessment Date Thrive assessed 06/20/22 04/20/23 14:20 Currently or been in a relationship where the following occur: no concerns reported Const General: no acute distress HENDE Head: Yes normal to inspection Eyes General: appearance normal, both eyes and all related structures Neck Neck: Yes no lymphadenopathy Resp Effort & Inspection: normal respiratory effort Auscultation: diminished lung sounds Cardio Rhythm: regular rhythm Heart sounds: S1 normal heart sound present and S2 normal heart sound present GI Inspection: Yes normal to inspection Palpation (GI): Soft to palpation Extrem General: Yes no pedal edema Assessment and Plan Assessment & Plan (1) Cardiomyopathy: Comment: Echo 04/04 left ventricular systolic function 25-30%, global left ventricular hypokinesis, mild diastolic dysfunction, severe septal asymmetric hypertrophy. Code(s): I42.9 - Cardiomyopathy, unspecified Plan: Obtain nuclear stress test to evaluate for ischemia, continue metoprolol and lovastatin 40 mg. Orders: Orders CA stress test Today I42.9 - Cardiomyopathy, unspecified NM jessica perf SPECT rest & str Today I42.9 - Cardiomyopathy, unspecified Coding Level of Care Code Est Pt Level 3 (20776) Diagnoses Cardiomyopathy I42.9
== END 2023-04-20 15:26 | disposition home or self-care (01) ==
PROVIDERS: PCP Internal Medicine; Visit Provider Internal Medicine
DX: I42.9 Cardiomyopathy, unspecified (principal)
CPT/HCPCS: 99213

== ENCOUNTER → 2023-05-24 08:19 | Outpatient (REF) | payer MEDICARE, SELFPAY ==
--- NOTE | 2023-05-24 08:22 | CA_ITS ---
Acquisition Time: 2023-05-24 08:34:10 Total Exercise Time: 00:02:00 Test Indications: LBBB, ABN ECHO Medications: SEE H Protocol: LEXISCAN Max HR: 091 BPM 65% of Pred: 138 BPM Max BP: 140/086 mmHG Max Work Load: 1.0 METS Pharmacological stress test with Lexiscan injection while sitting, without anginal symptoms, with isolated PVC, with hypotensive response to Lexiscan systolic 70 & 60 mmHg, with nondiagnoisitic EKGs. Aminophylline 75mg IVP given to reverse Lexiscan. Blood pressures returned to baseline. Nuclear images pending. Test reviewed with Dr. Vuong. Patient had hypotensive response to Lexiscan injection. Lowest systolic 60 mmhg. Patient put into laying position with feet elevated. Patient felt dizzy and nausous but had clear speech throughout. Reversed at 2 minutes recovery. Patient showed improve. Placed into seaterd position once blood pressure was above 100 mmHg systolic. Blood pressure returned to baseline 138/80. Patienr reports feeling well with no symptoms with steady gait. Referred By: Ines Mcdowell Overread By: Ritika Augustin
== END ==
LOC: HO.CARD 08:19
PROVIDERS: PCP Internal Medicine; Visit Provider Internal Medicine
DX: Z13.89 Encounter for screening for other disorder (principal)
CPT/HCPCS: 93017; J0280; J2785

== ENCOUNTER → 2023-05-24 08:22 | Outpatient (BNV) | payer MEDICARE, SELFPAY | PROVIDERS: PCP Internal Medicine; Visit Provider Nurse Practitioner | DX: R93.1 Abnormal findings on diagnostic imaging of heart and coronary circulation (principal); I42.9 Cardiomyopathy, unspecified | CPT/HCPCS: 93016; 93018 ==

== ENCOUNTER 2023-06-07 13:39 | Outpatient (AMB) | payer MEDICARE, SELFPAY ==
--- NOTE | 2023-06-07 13:45 | MHC.OFFVIS ---
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: No Allergies regadenoson [From Lexiscan] Adverse Reaction (Verified 05/29/23 11:04) hypotensive Medication List - Last Reconciled 06/07/23 by Omid Vuong MD amoxicillin 2,000 mg (4 x 500 mg) PO ONCE 1 day aspirin (Adult Low Dose Aspirin) 81 mg PO DAILY coenzyme Q10 (CoQ-10) 100 mg PO DAILY glucosamine-chondroitin 250-200 mg (Osteo Bi-Flex) 2 tabs PO TID ketoconazole 2% 1 appl topical DAILY lovastatin 40 mg PO DAILY metoprolol succinate ER 25 mg PO DAILY triamcinolone acetonide 0.1% 1 appl topical DAILY HPI HPI Comments History of Present Illness Details Thank you for referring Zheng in cardiology consultation today for management of cardiomyopathy. He has a pleasant 82-year-old male who in March had an echocardiogram after an abnormal EKG as per him. He has no cardiac symptoms. He said he is quite active and functional and denies any exertional chest pain or shortness of breath. Echocardiogram shows severe LV systolic dysfunction with LVEF of 25-30% with mild aortic valve sclerosis probably responsible for his murmur. He was subsequently referred for a vasodilating myocardial perfusion imaging however developed significant side effects with dizziness and low blood pressure and unfortunately his stress test data was lost due to technical issues. He has since then not repeated his testing. He comes for follow-up. He is currently on metoprolol therapy. Denies any symptoms of orthopnea, PND, leg edema. Denies any lightheadedness, syncope, prolonged palpitation irregular heartbeat. Denies any exertional chest pain. He takes all his medications. He said he has never had any prior heart issues or myocardial infarction. [facility] Medical History Annual physical exam Cataract UTI (urinary tract infection) Tobacco consumption Hyperlipidemia HTN (hypertension) Surgical History Hx of hernia repair H/O colonoscopy No pertinent past surgical history Family History Father Stomach cancer Mother No problems noted. Social History Housing: House Alcohol intake: never Patient Tobacco Use Status: Current someday Tobacco user Tobacco use type: Cigar e-Cigarette/Vaping Use: Never Used Current occupational status: retired Cognitive needs: No Hearing needs: No Vision needs: Yes Review of Systems Const Denies chills, Denies daytime sleepiness, Denies fatigue, Denies fever(s), Denies frequent falls, Denies poor appetite, Denies snoring, Denies stops breathing during sleep, Denies weakness, Denies weight gain and Denies weight loss Eyes Denies loss of vision ENT Denies dizziness and Denies hearing loss Card Denies chest pain, Denies claudication, Denies leg edema, Denies lightheadedness, Denies palpitations, Denies dyspnea, Denies dyspnea on exertion and Denies orthopnea Resp Denies cough, Denies excessive phlegm production, Denies dyspnea, Denies dyspnea on exertion, Denies snoring and Denies wheezing GI Denies abdominal pain, Denies hematochezia, Denies change in bowel habits, Denies nausea and Denies vomiting Denies dysuria and Denies urinary frequency Musc Denies arthralgias, Denies muscle weakness, Denies numbness and Denies other (frequent falls) Skin/Breast Denies nail changes and Denies rash Neuro Denies Abnormal speech present, Denies dizziness, Denies frequent falls, Denies loss of vision, Denies memory loss, Denies numbness and Denies weakness Psych Denies depression and Denies memory loss Endo Denies fatigue and Denies palpitations Cheko/Lymph Reports easy bruising and Reports other (anemia) Aller/Immun Denies wheezing Physical Exam Vital Signs: Last Vital Signs Pulse 91 06/07/23 13:46 BP 120/74 06/07/23 13:46 BMI result Body Mass Index 26.7 Const General: cooperative, comfortable, no acute distress, alert, awake and Physically active Nutritional Appearance: average body habitus Orientation/consciousness: patient oriented x3 Limitations: no limitations HEENT Head: Yes normocephalic and Yes atraumatic Neck Neck: Yes trachea midline, Yes supple and Yes no JVD Resp Effort & Inspection: normal respiratory effort Auscultation: clear to auscultation bilaterally Cardio Jugular venous distension: no JVD Palpation: abnormal PMI displaced PMI Rate: regular rate Rhythm: regular rhythm Heart sounds: S1 normal heart sound present, S2 normal heart sound present, no click, no gallops and Murmur heart sound present systolic early GI Auscultation: normal bowel sounds Skin General skin exam: no rashes or lesions noted Neuro General: patient oriented x3 and no focal motor deficits Speech: No Abnormal speech present Extrem General: Yes no clubbing, cyanosis or edema Psych Appearance: grossly normal Office Procedures EKG Details: EKG shows normal sinus rhythm with left bundle-branch block at 91 beats per minute [id number], Complete Assessment & Plan Assessment & Plan (1) Cardiomyopathy: Comment: Echo 04/04 left ventricular systolic function 25-30%, global left ventricular hypokinesis, mild diastolic dysfunction, severe septal asymmetric hypertrophy. Code(s): I42.9 - Cardiomyopathy, unspecified Plan: Severe cardiomyopathy in this elderly gentleman without any obvious symptoms, NYHA class 1. He has underlying left bundle-branch block which could be potential etiology of his cardiomyopathy process. Although ischemic heart disease needs to be ruled out. He did undergo a vasodilating myocardial perfusion imaging but did not tolerate it and does not want to perform it again. He also had hypotensive reaction to Lexiscan and that could suggest underlying significant coronary artery disease. I have therefore advised him to pursue cardiac catheterization to evaluate for coronary artery disease. Explained to him the procedures in details. This will be pursued at [facility] in the future., risks, benefits, alternatives to the procedure was discussed. If he has nonischemic cardiomyopathy will pursue aggressive medical therapy. Possibly related to left bundle-branch conduction abnormality. Would start him on neurohormonal modulation discuss the process of cardiomyopathy eventually leading to congestive heart failure syndrome and to avoid progressive heart failure syndrome was discussed. He has no evidence of congestive heart failure at this point in time. Will start him on Entresto twice a day and continue metoprolol therapy for neurohormonal modulation. Follow-up lab work in 1 weeks time. Gradually uptitrate medications as tolerated. If his LV systolic function does not improve with medical therapy will pursue cardiac resynchronization therapy. This was discussed with him in details. He understands and agrees. Will follow up in the clinic in 4 weeks time, sooner p.r.n.. Thank you for allowing me to partake in his care Orders: Orders Cardiac Cath LT Diagnostic 1 Week I42.9 - Cardiomyopathy, unspecified Basic Metabolic Panel Today I42.9 - Cardiomyopathy, unspecified Prothrombin Time INR Today I42.9 - Cardiomyopathy, unspecified Complete Blood Count no Diff Today I42.9 - Cardiomyopathy, unspecified Medications: New sacubitril-valsartan 24-26 mg (Entresto) 1 tab PO BID 60 tabs 2RF I42.9 - Cardiomyopathy, unspecified Coding Level of Care Code New Pt Level 4 (08706) Diagnoses Cardiomyopathy I42.9 CPT Codes EKG - CPT: [id number], Complete ([id number])
[2023-06-07 13:46] VITALS: BP 120/74; PULSE 91; BMI 26.7
== END 2023-06-07 14:22 | disposition home or self-care (01) ==
PROVIDERS: PCP Internal Medicine; Visit Provider Internal Medicine Cardiovascular Disease
DX: I42.9 Cardiomyopathy, unspecified (principal)
CPT/HCPCS: 93010; 99204

== ENCOUNTER → 2023-06-07 13:39 | Outpatient (BNVA) | payer MEDICARE, SELFPAY | PROVIDERS: PCP Internal Medicine; Visit Provider Internal Medicine Cardiovascular Disease | DX: I42.9 Cardiomyopathy, unspecified (principal); I44.7 Left bundle-branch block, unspecified; I10 Essential (primary) hypertension | CPT/HCPCS: 93005; 99202 ==

== ENCOUNTER 2023-06-08 09:27 | Outpatient (REF) | payer MEDICARE, SELFPAY ==
[2023-06-08 10:15] LABS: Hematocrit 43.7 % (42.0-52.0); Hemoglobin 15.1 g/dl (14.0-18.0); Mean Corpuscular HGB Conc 34.6 g/dl (31.0-36.0); Mean Corpuscular Hemoglobin 32.4 pg (27.0-33.0); Mean Corpuscular Volume 93.8 fL (80.0-98.0); Mean Platelet Volume 10.5 fL (9.4-12.4); Platelet Count 277 X10*3/uL (160-400); Red Blood Count 4.66 X10*6/uL (4.60-5.80); Red Cell Distribution Width 12.6 % (11.0-16.0); White Blood Count 7.2 X10*3/uL (4.8-10.8)
[2023-06-08 10:21] LABS: INTERNATIONAL NORM RATIO 0.9 (0.9-1.1); Prothrombin Time 11.4 SEC (11.1-13.3)
[2023-06-08 11:16] LABS: Anion Gap 11 (12-20); Blood Urea Nitrogen 13 mg/dL (9-16); Calcium 9.6 mg/dL (8.4-10.2); Carbon Dioxide 26 mmol/L (22-29); Chloride 107 mmol/L (96-108); Estimated Glomerular Filt Rate 56; Glucose Random 101 mg/dL (60-115); Potassium 4.1 mmol/L (3.3-5.1); Sodium 140 mmol/L (135-145)
== END 2023-06-08 09:28 | disposition home or self-care (01) ==
LOC: HO.LAB 09:27
PROVIDERS: PCP Internal Medicine; Visit Provider Internal Medicine Cardiovascular Disease
DX: I42.9 Cardiomyopathy, unspecified (principal)
CPT/HCPCS: 36415; 80048; 85027; 85610

== ENCOUNTER → 2023-06-14 23:59 | Outpatient (BNV) | payer MEDICARE, SELFPAY | PROVIDERS: PCP Internal Medicine; Visit Provider Internal Medicine Cardiovascular Disease | DX: I50.20 Unspecified systolic (congestive) heart failure (principal) | CPT/HCPCS: 93458; 99152 ==

== ENCOUNTER 2023-07-05 13:26 | Outpatient (AMB) | payer MEDICARE, SELFPAY ==
[2023-07-05 13:47] VITALS: BP 120/70; PULSE 86; BMI 26.4
--- NOTE | 2023-07-05 13:47 | MHC.OFFVIS ---
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 Continues to have no symptoms. He said however he has not been walking as much. Denies any worsening shortness of breath, orthopnea, PND. Denies any anginal symptoms. Cardiac catheterization shows branch was disease in the OM 1 branch at 75-80% stenosis. This is not causing his LV systolic dysfunction. He was noted to have frequent PVCs during the procedure. He denies any palpitations. No lightheadedness, syncope. Tolerating his medications well. REPLACED BY [facility] Medical History (Updated 07/05/23 @ 14:20 by Omid Vuong MD) CAD (coronary artery disease) Annual physical exam Cataract UTI (urinary tract infection) Tobacco consumption Hyperlipidemia HTN (hypertension) Surgical History Hx of hernia repair H/O colonoscopy No pertinent past surgical history Family History Father Stomach cancer Mother No problems noted. Social History Housing: House Alcohol intake: never Patient Tobacco Use Status: Current someday Tobacco user Tobacco use type: Cigar e-Cigarette/Vaping Use: Never Used Current occupational status: retired Cognitive needs: No Hearing needs: No Vision needs: Yes Review of Systems Const Denies chills, Denies fatigue, Denies fever(s), Denies frequent falls, Denies weakness, Denies weight gain and Denies weight loss ENT Denies dizziness Card Denies chest pain, Denies leg edema, Denies lightheadedness, Denies palpitations, Denies dyspnea, Denies dyspnea on exertion, Denies orthopnea and Denies other (loss of consciousness) Resp Denies cough, Denies dyspnea and Denies dyspnea on exertion GI Denies hematochezia and Denies change in stool character Musc Denies abnormal gait, Denies muscle weakness, Denies numbness, Denies radiating pain into limb and Denies tingling Neuro Denies Abnormal speech present, Denies abnormal gait, Denies dizziness, Denies frequent falls, Denies numbness, Denies tingling and Denies weakness Endo Denies fatigue and Denies palpitations Physical Exam Vital Signs: Last Vital Signs Pulse 86 07/05/23 13:47 BP 120/70 07/05/23 13:47 BMI result Body Mass Index 26.4 Const General: cooperative, comfortable, no acute distress, alert, awake and Physically active Nutritional Appearance: average body habitus Orientation/consciousness: patient oriented x3 Limitations: no limitations HEENT Head: Yes normocephalic and Yes atraumatic Neck Neck: Yes trachea midline, Yes supple and Yes no JVD Resp Effort & Inspection: normal respiratory effort Auscultation: clear to auscultation bilaterally Cardio Jugular venous distension: no JVD Palpation: abnormal PMI displaced PMI Rate: regular rate Rhythm: abnormal rhythm with ectopic beats Heart sounds: S1 normal heart sound present, S2 normal heart sound present, no click, no gallops and Murmur heart sound present systolic early GI Auscultation: normal bowel sounds Skin General skin exam: no rashes or lesions noted Neuro General: patient oriented x3 and no focal motor deficits Speech: No Abnormal speech present Extrem General: Yes no clubbing, cyanosis or edema Psych Appearance: grossly normal Assessment & Plan Assessment & Plan (1) Cardiomyopathy: Comment: Echo 04/04 left ventricular systolic function 25-30%, global left ventricular hypokinesis, mild diastolic dysfunction, severe septal asymmetric hypertrophy. Code(s): I42.9 - Cardiomyopathy, unspecified Category: Medical Plan: Cardiomyopathy which appears to be nonischemic in nature with branch vessel coronary artery disease not explaining his LV systolic dysfunction. Continues to have no symptoms may be NYHA class 2 symptoms. Does not exercise significantly. No orthopnea, PND, leg edema or signs of overt congestive heart failure. Will continue to uptitrate neurohormonal modulation to Entresto 49-51 mg b.i.d. and Toprol-XL 50 mg daily. Follow-up echocardiogram in 4 weeks time along with EKG and Holter monitor to assess for frequency of PVCs. If he continues to severe LV systolic dysfunction with benefit from cardiac resynchronization therapy. This was discussed with him. He wants to think about it obviously and I have advised him to have 1 of his kids come with him over the next visit. Understands agrees. Signs and symptoms of heart failure were discussed. Advised to call me if he does not tolerate his medications. (2) CAD (coronary artery disease): Comment: Om 175-80% disease by cardiac catheterization, no symptoms of angina Code(s): I25.10 - Atherosclerotic heart disease of stebbins coronary artery without angina pectoris Category: Medical Plan: Coronary artery disease which is moderately severe branch vessel disease without any symptoms of angina. Continue aspirin therapy. Continue statin therapy with target goal LDL less than 70 mg/dL. Continue aggressive control blood pressure which is well optimized advised to call me with any new symptoms of angina. Will continue manage conservatively. Will follow up in the clinic in 5 weeks time, sooner p.r.n.. Thank you for allowing me to partake in his care Orders: Orders CA echo limited 4 Weeks I42.9 - Cardiomyopathy, unspecified ECG holter monitor 48 hour 3 Weeks I42.9 - Cardiomyopathy, unspecified, I49.3 - Ventricular premature depolarization Medications: New metoprolol succinate ER (Toprol XL) 50 mg PO DAILY 30 tabs 5RF sacubitril-valsartan 49-51 mg (Entresto) 1 tab PO BID 60 tabs 5RF Discontinued metoprolol succinate ER Discontinued Reason: Doctor's Order 25 mg PO DAILY 90 tabs 3RF I10 - Essential (primary) hypertension sacubitril-valsartan 24-26 mg (Entresto) Discontinued Reason: Doctor's Order 1 tab PO BID 60 tabs 2RF I42.9 - Cardiomyopathy, unspecified Coding Level of Care Code Est Pt Level 4 (87863) Diagnoses Cardiomyopathy I42.9 CAD (coronary artery disease) I25.10
== END 2023-07-05 14:24 | disposition home or self-care (01) ==
PROVIDERS: PCP Internal Medicine; Visit Provider Internal Medicine Cardiovascular Disease
DX: I42.9 Cardiomyopathy, unspecified (principal); I25.10 Atherosclerotic heart disease of native coronary artery without angina pectoris
CPT/HCPCS: 99214

== ENCOUNTER → 2023-07-05 13:26 | Outpatient (BNVA) | payer MEDICARE, SELFPAY | PROVIDERS: PCP Internal Medicine; Visit Provider Internal Medicine Cardiovascular Disease | DX: I42.9 Cardiomyopathy, unspecified (principal); I25.10 Atherosclerotic heart disease of native coronary artery without angina pectoris; Z79.82 Long term (current) use of aspirin; Z79.899 Other long term (current) drug therapy | CPT/HCPCS: 99212 ==

== ENCOUNTER → 2023-07-24 13:37 | Outpatient (REF) | payer MEDICARE, SELFPAY ==
--- NOTE | 2023-07-24 13:41 | CA_ITS ---
Transthoracic Echocardiogram Patient (Last, First, Middle): Zheng Juarez T Gender: Male Date of : 1940 Age: 82 Procedure Date: 07/24/2023 Procedure Type: Transthoracic Echocardiogram Location: OP Height: 175.26 cm Weight: 78.93 kg BSA: 1.95 m2 Heart Rate: 94 bpm BP: 100 / 56 mmHg Layer Off: JOHANA Referring MD: Omid Vuong MD Deputy Probation Officer: Omid Vuong MD Symptoms: I42.9 - Cardiomyopathy, unspecified Study Quality: Adequate w contrast ECG Rhythm: Sinus Conclusions: - Mildly reduced LV ejection fraction 45-50% with impaired relaxation filling pattern Findings Procedure Information Contrast agent, definity, is being given per protocol without apparent complications. Left Ventricle Normal left ventricular cavity size. There is normal left ventricular wall thickness. The left ventricular systolic function is mildly decreased. The visually estimated ejection fraction is between 45-50%. There is paradoxical septal motion consistent with a left bundle branch block. Spectral Doppler is indicative of an impaired relaxation filling pattern. Prior Study Comparison Changes noted compared to prior study dated: 03/29/2023. LV systolic function has improved Measurements 2D Linear Measurements LVIDd: 4.26 3.9-5.3/4.2-5.9 cm LVIDd Index: 2.18 2.4-3.2/2.2-3.1 cm/m2 LVIDs: 2.90 2.0-3.6 cm LVOT Diam: 2.30 3.0+(-)1.3 cm 2D Systolic Function EF 4C: 42.70 >55% EF 2C: 55.30 >55% EF BiP: 48.80 >55% LVOT LVOT Pk Dany: 0.93 LVOT Mn Dany: 0.63 LVOT VTI: 0.16 LVOT Pk Grad: 3.00 LVOT Mn Grad: 2.00 LVOT Diam: 2.30 LVOT Area: 4.15 Tricuspid Valve TR Pk Dany: 2.42 TR Pk Grad: 23.00 RA Press: 3.00 RVSP: 26.00 Updated in Other Vendor System with Status of Final Omid Vuong MD electronically signed on 07/25/2023 11:47:52 AM with status of Final
--- NOTE | 2023-07-24 13:41 | HM_ITS ---
Conclusion: 1. Patient was monitored for total period of 2 days 2. Baseline was normal sinus rhythm with average heart of 75 beats per minute 3. No significant pauses noted 4. Frequent PACs noted with total burden of 7.9% with short runs of SVT, at 175 beats per minute longest at 4 beats 5. Frequent PVCs noted with total burden of 14.7% with multiple runs of nonsustained VT, fastest at 181 beats per minute and longest of 5 beats MTDD
== END ==
LOC: HO.CARD 13:37
PROVIDERS: PCP Internal Medicine; Visit Provider Internal Medicine Cardiovascular Disease
DX: I42.9 Cardiomyopathy, unspecified (principal); I49.3 Ventricular premature depolarization
CPT/HCPCS: 93225; 93308; Q9957

== ENCOUNTER → 2023-07-24 13:41 | Outpatient (BNV) | payer MEDICARE, SELFPAY | PROVIDERS: PCP Internal Medicine; Visit Provider Internal Medicine Cardiovascular Disease | DX: I49.1 Atrial premature depolarization (principal); I49.3 Ventricular premature depolarization | CPT/HCPCS: 93227; 93308; 93321 ==

== ENCOUNTER 2023-08-11 12:53 | Outpatient (AMB) | payer MEDICARE, SELFPAY ==
--- NOTE | 2023-08-11 12:54 | MHC.OFFWIV ---
Intake Vital Signs 08/11/23 12:56 Height 5 ft 9 in Weight 171 lb BMI 25.2 BP 130/80 Blood Pressure Location Lt brachial Position Sitting Pulse 79 Pulse Source Pulse Oximeter Pulse Oximetry (%) 96 Oxygen Delivery Method Room Air Intake Visit Reasons: Est/ bowel issues (lobby) Intake Note: Patient here for diarrhea that started Sunday, very fatigued Patient Tobacco Use Status: Current someday Tobacco user Allergies regadenoson [From Lexiscan] Adverse Reaction (Verified 08/11/23 13:07) hypotensive Do you need a note to return to daycare/school/sports/work: No HPI HPI Comments History of Present Illness Details here today with complaints of diarrhea. Reports that he was in his normal state of health until Sunday when he had a sudden onset of diarrhea. He reports the diarrhea was nonbloody. Sunday was the worst day. He continued to have diarrhea but not as Bad or as often. he has been drinking fluids without any difficulty however feels low energy and weak. Has been reducing his p.o. fluid intake due to the diarrhea. Today he took an antidiarrheal that was given to him by his neighbor. He has not had any diarrhea today. He does not know the name of the medication. He denies any fever, chills, nausea, vomiting, abdominal pain. Reports a hernia repair for abdominal surgery. He denies any new medication or food intake. Denies any exposure to anybody with similar symptoms. He reports normal urination. [facility] Medical History (Updated 08/11/23 @ 13:22 by Yahaira Johnson, [facility] [place]) CAD (coronary artery disease) Annual physical exam Cataract UTI (urinary tract infection) Tobacco consumption Hyperlipidemia HTN (hypertension) Surgical History Hx of hernia repair H/O colonoscopy No pertinent past surgical history Family History Father Stomach cancer Mother No problems noted. Social History Housing: House Alcohol intake: never Patient Tobacco Use Status: Current someday Tobacco user Tobacco use type: Cigar e-Cigarette/Vaping Use: Never Used Current occupational status: retired Cognitive needs: No Hearing needs: No Vision needs: Yes Review of Systems Const All systems reviewed & are unremarkable except as noted in HPI and below Physical Exam Vital Signs: Last Vital Signs Pulse 79 08/11/23 12:56 BP 130/80 08/11/23 12:56 Pulse Ox 96 08/11/23 12:56 Oxygen Delivery Method Room Air 08/11/23 12:56 BMI result Body Mass Index 25.2 Const Other: Awake alert oriented scleras nonicteric bilat mucous membranes dry abdomen is soft, hyperactive bowel sounds x4, nontender Assessment & Plan Assessment & Plan (1) Diarrhea: Code(s): R19.7 - Diarrhea, unspecified Qualifiers: Diarrhea type: unspecified type Qualified Code(s): R19.7 - Diarrhea, unspecified Plan: . Plan unsure of the cause however he presents quite well, nontoxic and has no other constitutional symptoms. Therefore will treat supportively. After I reviewed all of this with him he did ask for his daughter to come in. His daughter Sarah who was a dietitian was able to come in. I had to repeat all of this information for a 2nd time to ensure understanding. Total time spent caring for the patient today was 45 minutes. This includes time spent before the visit reviewing the chart, time spent during the visit, and time spent after the visit on documentation This note is constructed using voice recognition software. While every effort has been made to ensure accuracy in bag filler machine operator, still errors may have been included Sometimes, these errors may affect the content or meaning of the given sentence . Medications: New loperamide (Imodium A-D) MAX 4 tablets per day 2 mg PO Q6H PRN 12 caps 0RF loose stool Patient Instructions: advised to eat a potassium and sodium rich diet, drink electrolyte solutions such as Gatorade. Use antidiarrheals as directed. Be careful not to overuse the antidiarrheals as this could cause constipation. Your energy level should return to normal once your able to replete your electrolytes that were likely lost as result of the diarrhea. Be sure to liberally hydrate, eat a diet as tolerated. Should you develop any abdominal pain, fever, vomiting or worsening of your symptoms I would recommend a follow-up with your primary care provider. Coding Level of Care Code Est Pt Level 5 (22393) Diagnoses Diarrhea, unspecified type R19.7 Diarrhea type: unspecified type
[2023-08-11 12:56] VITALS: BP 130/80; PULSE 79; O2SAT 96; BMI 25.2
== END 2023-08-11 13:19 | disposition home or self-care (01) ==
PROVIDERS: PCP Internal Medicine; Visit Provider Nurse Practitioner Family
DX: R19.7 Diarrhea, unspecified (principal)
CPT/HCPCS: 99215

== ENCOUNTER 2023-08-15 13:56 | Outpatient (AMB) | payer MEDICARE, SELFPAY ==
--- NOTE | 2023-08-15 14:00 | MHC.PC.OV ---
Vital Signs 08/15/23 14:02 Height 5 ft 9 in Weight 170 lb BMI 25.1 BP 104/66 Blood Pressure Location Rt brachial Position Sitting Pulse 71 Pulse Source Pulse Oximeter Pulse Oximetry (%) 97 Oxygen Delivery Method Room Air Intake Visit Reasons: Diarrhea Intake Note: Pt is here today for a sick visit. Pt c/o diarrhea since 08/07/23 for 5 days. Pt went to Urgent Care and he was given antidiarrhea medication. Pt states that the diarrhea cleared up but today he had an episode of diarrhea. Allergies regadenoson [From Lexiscan] Adverse Reaction (Verified 08/11/23 13:07) hypotensive Tobacco use date assessed: 08/15/23 Dental Screening Dental Screen Date: 04/20/23 HPI Diarrhea HPI Details Patient presents complaining of 5 days of watery diarrhea some abdominal discomfort but no fever chills nausea or vomiting. He started to eat normal diet yesterday and had 1 loose bowel movement this morning. Patient has been taking Entresto for nonischemic cardiomyopathy and tolerating well. He has a follow-up appointment Cardiology next month [facility] Medical History (Updated 08/11/23 @ 13:22 by Yahaira Johnson, [facility] [place]) CAD (coronary artery disease) Annual physical exam Cataract UTI (urinary tract infection) Tobacco consumption Hyperlipidemia HTN (hypertension) Surgical History Hx of hernia repair H/O colonoscopy No pertinent past surgical history Family History Father Stomach cancer Mother No problems noted. Social History Housing: House Alcohol intake: never Patient Tobacco Use Status: Current someday Tobacco user Tobacco use type: Cigar e-Cigarette/Vaping Use: Never Used service: Yes Current occupational status: retired Cognitive needs: No Hearing needs: No Vision needs: Yes Questionnaire Thrive Questionnaire Date Thrive assessed: 06/20/22 RADHA-7 AMB Questionnaire RADHA-7 Date RADHA - 7 assessed: 04/20/23 Source: Developed by Drs. Vivek Gregory, Angelica Lundberg, Joce Horne and colleagues, with an educational digna from [employer]. Review of Systems Const All systems reviewed & are unremarkable except as noted in HPI and below ENT Reports no additional complaints Card Reports no additional complaints Resp Reports no additional complaints GI Reports no additional complaints Reports no additional complaints Physical exam (Primary Care) Vital Signs: Last Vital Signs Pulse 71 08/15/23 14:02 BP 104/66 08/15/23 14:02 Pulse Ox 97 08/15/23 14:02 Oxygen Delivery Method Room Air 08/15/23 14:02 BMI result Body Mass Index 25.1 Tobacco/Smoking Status: Tobacco use Status Tobacco use date assessed 08/15/23 08/15/23 14:10 Patient Tobacco Use Status Current someday Tobacco 08/15/23 14:00 Tobacco use type Cigar 08/15/23 14:00 e-Cigarette/Vaping Use Never Used 08/15/23 14:00 Thrive Assessment: Date of Thrive Assessment Date Thrive assessed 06/20/22 08/15/23 14:00 Const General: no acute distress HENMT Head: Yes normal to inspection Eyes General: appearance normal, both eyes and all related structures Resp Effort & Inspection: normal respiratory effort Auscultation: clear to auscultation bilaterally Cardio Rhythm: regular rhythm Heart sounds: S1 normal heart sound present and S2 normal heart sound present GI Inspection: Yes normal to inspection Palpation (GI): Soft to palpation Percussion: Yes normal to percussion Auscultation: normal bowel sounds Assessment and Plan Assessment & Plan (1) HTN (hypertension): Code(s): I10 - Essential (primary) hypertension Plan: Continue current medications (2) Cardiomyopathy: Comment: Echo 04/04 left ventricular systolic function 25-30%, global left ventricular hypokinesis, mild diastolic dysfunction, severe septal asymmetric hypertrophy. Code(s): I42.9 - Cardiomyopathy, unspecified Plan: Continue Entresto beta lauren follow-up with the Cardiology (3) Diarrhea: Code(s): R19.7 - Diarrhea, unspecified Qualifiers: Diarrhea type: unspecified type Qualified Code(s): R19.7 - Diarrhea, unspecified Plan: Supportive care discussed with the patient check comprehensive panel (4) Hyperlipidemia: Code(s): E78.5 - Hyperlipidemia, unspecified Plan: Continue statin Orders: Orders IRON PROFILE Today I10 - Essential (primary) hypertension, I42.9 - Cardiomyopathy, unspecified, R19.7 - Diarrhea, unspecified Complete Blood Count Auto Diff Today I10 - Essential (primary) hypertension, I42.9 - Cardiomyopathy, unspecified, R19.7 - Diarrhea, unspecified Comprehensive Met. Panel Today I10 - Essential (primary) hypertension, I42.9 - Cardiomyopathy, unspecified, R19.7 - Diarrhea, unspecified TSH reflex Free T4 Today I10 - Essential (primary) hypertension, I42.9 - Cardiomyopathy, unspecified, R19.7 - Diarrhea, unspecified Coding Level of Care Code Est Pt Level 4 (74613) Diagnoses HTN (hypertension) I10 Cardiomyopathy I42.9 Diarrhea, unspecified type R19.7 Diarrhea type: unspecified type Hyperlipidemia E78.5
[2023-08-15 14:02] VITALS: BP 104/66; PULSE 71; O2SAT 97; BMI 25.1
== END 2023-08-15 14:43 | disposition home or self-care (01) ==
PROVIDERS: PCP Internal Medicine; Visit Provider Internal Medicine
DX: I10 Essential (primary) hypertension (principal); I42.9 Cardiomyopathy, unspecified; R19.7 Diarrhea, unspecified; E78.5 Hyperlipidemia, unspecified
CPT/HCPCS: 99214

== ENCOUNTER 2023-08-15 14:44 | Outpatient (REF) | payer MEDICARE, SELFPAY ==
[2023-08-15 16:17] LABS: MANUAL DIFF FLAG NO
[2023-08-15 16:27] LABS: Basophils Percent Auto 0.2 % (0-2); Eosinophils Absolute Auto 0.1 X10*3/uL (0.0-0.4); Eosinophils Percent Auto 1.2 % (0-4); Hematocrit 41.5 % (42.0-52.0); Imm Gran Abs Auto 0.02 X10*3/uL (0.00-0.03); Imm Gran Pct Auto 0.4 % (0.0-0.4); Lymphocytes Absolute Auto 1.4 X10*3/uL (1.2-4.9); Lymphocytes Percent Auto 27.4 % (20-40); Mean Corpuscular HGB Conc 33.7 g/dl (31.0-36.0); Mean Corpuscular Hemoglobin 32.3 pg (27.0-33.0); Mean Corpuscular Volume 95.6 fL (80.0-98.0); Mean Platelet Volume 11.1 fL (9.4-12.4); Monocytes Absolute Auto 0.6 X10*3/uL (0.1-1.2); Monocytes Percent Auto 11.5 % (2-11); Neutrophils Percent Auto 59.3 % (45-73); Platelet Count 231 X10*3/uL (160-400); Red Blood Count 4.34 X10*6/uL (4.60-5.80); Red Cell Distribution Width 12.3 % (11.0-16.0)
[2023-08-15 17:00] LABS: Alanine Aminotransferase 18 U/L (0-40); Albumin Level 4.1 g/dL (3.5-5.0); Alkaline Phosphatase 59 U/L (39-117); Anion Gap 15 (12-20); Aspartate Amino Transferase 19 U/L (5-37); Bilirubin Total 0.4 mg/dL (0.0-1.0); Blood Urea Nitrogen 23 mg/dL (9-16); Calcium 9.2 mg/dL (8.4-10.2); Carbon Dioxide 21 mmol/L (22-29); Chloride 110 mmol/L (96-108); Estimated Glomerular Filt Rate 55; Glucose Random 89 mg/dL (60-115); Iron 122 mcg/dL (45-160); Percent Iron Saturation 53 % (15-50); Sodium 141 mmol/L (135-145); Total Iron Binding Capacity 231 mcg/dL (228-428); Total Protein 7.3 g/dL (6.5-8.0); Unsaturated Iron Binding 109 ug/dL
[2023-08-15 17:04] LABS: TSH reflex Free T4 0.68 uIU/mL (0.32-4.0)
== END 2023-08-15 14:45 | disposition home or self-care (01) ==
LOC: HO.HMGCLDS 14:44
PROVIDERS: PCP Internal Medicine; Visit Provider Internal Medicine
DX: R19.7 Diarrhea, unspecified (principal); I42.9 Cardiomyopathy, unspecified; I10 Essential (primary) hypertension
CPT/HCPCS: 36415; 80053; 83540; 84443; 85025

== ENCOUNTER 2023-09-04 14:02 | Outpatient (AMB) | payer MEDICARE, SELFPAY ==
[2023-09-04 14:15] VITALS: BP 124/80; PULSE 87; BMI 25.4
--- NOTE | 2023-09-04 14:15 | MHC.OFFVIS ---
Vital Signs 09/04/23 14:15 Height 5 ft 9 in Weight 171 lb 15.369 oz BMI 25.4 BP 124/80 Blood Pressure Location Lt brachial Position Sitting Pulse 87 Intake Visit Reasons: follow up/ Echo/Holter Intake Note: Follow-up after echo and holter Mold Laminator Required: No Circulation Worker: Circulation Worker Present Accompanied by: Family/Other Allergies regadenoson [From Lexiscan] Adverse Reaction (Verified 08/11/23 13:07) hypotensive Medication List - Last Reconciled 09/04/23 by Omid Vuong MD aspirin (Adult Low Dose Aspirin) 81 mg PO DAILY coenzyme Q10 (CoQ-10) 100 mg PO DAILY glucosamine-chondroitin 250-200 mg (Osteo Bi-Flex) 2 tabs PO TID ketoconazole 2% 1 appl topical DAILY latanoprost 0.005% drps ophthalmic (eye) lovastatin 40 mg PO DAILY metoprolol succinate ER (Toprol XL) 50 mg PO DAILY sacubitril-valsartan 49-51 mg (Entresto) 1 tab PO BID HPI Comments Details: Zheng comes for follow-up. Recent echocardiogram shows significant improvement in his LV ejection fraction 45-50%. Continues to have frequent PVCs and PACs with 5 beat run of nonsustained VT but without any symptoms. No lightheadedness, syncope. Denies any heart failure symptoms. Continues to remain active in his day-to-day life. Tolerating his medications well. No episodes of chest pain. [facility] Medical History CAD (coronary artery disease) Annual physical exam Cataract UTI (urinary tract infection) Tobacco consumption Hyperlipidemia HTN (hypertension) Surgical History Hx of hernia repair H/O colonoscopy No pertinent past surgical history Family History Father Stomach cancer Mother No problems noted. Social History Housing: House Alcohol intake: never Patient Tobacco Use Status: Current someday Tobacco user Tobacco use type: Cigar e-Cigarette/Vaping Use: Never Used service: Yes Current occupational status: retired Cognitive needs: No Hearing needs: No Vision needs: Yes Review of Systems Const Denies chills, Denies fatigue, Denies fever(s), Denies frequent falls, Denies weakness, Denies weight gain and Denies weight loss ENT Denies dizziness Card Denies chest pain, Denies leg edema, Denies lightheadedness, Denies palpitations, Denies dyspnea, Denies dyspnea on exertion, Denies orthopnea and Denies other (loss of consciousness) Resp Denies cough, Denies dyspnea and Denies dyspnea on exertion GI Denies hematochezia and Denies change in stool character Musc Denies abnormal gait, Denies muscle weakness, Denies numbness, Denies radiating pain into limb and Denies tingling Neuro Denies Abnormal speech present, Denies abnormal gait, Denies dizziness, Denies frequent falls, Denies numbness, Denies tingling and Denies weakness Endo Denies fatigue and Denies palpitations Physical Exam Vital Signs: Last Vital Signs Pulse 87 09/04/23 14:15 BP 124/80 09/04/23 14:15 BMI result Body Mass Index 25.4 Const General: cooperative, comfortable, no acute distress, alert, awake and Physically active Nutritional Appearance: average body habitus Orientation/consciousness: patient oriented x3 Limitations: no limitations HEENT Head: Yes normocephalic and Yes atraumatic Neck Neck: Yes trachea midline, Yes supple and Yes no JVD Resp Effort & Inspection: normal respiratory effort Auscultation: clear to auscultation bilaterally Cardio Jugular venous distension: no JVD Palpation: abnormal PMI displaced PMI Rate: regular rate Rhythm: abnormal rhythm with ectopic beats Heart sounds: S1 normal heart sound present, S2 normal heart sound present, no click, no gallops and Murmur heart sound present systolic early GI Auscultation: normal bowel sounds Skin General skin exam: no rashes or lesions noted Neuro General: patient oriented x3 and no focal motor deficits Speech: No Abnormal speech present Extrem General: Yes no clubbing, cyanosis or edema Psych Appearance: grossly normal Assessment & Plan Assessment & Plan (1) Cardiomyopathy: Comment: Echo 04/04 left ventricular systolic function 25-30%, global left ventricular hypokinesis, mild diastolic dysfunction, severe septal asymmetric hypertrophy. Code(s): I42.9 - Cardiomyopathy, unspecified Category: Medical Plan: Cardiomyopathy with much improved LV ejection fraction on medical therapy despite persistent significant PVC and PAC burden with underlying left bundle-branch block. Cardiomyopathy is nonischemic as he has only branch vessel coronary disease does not explain his global cardiomyopathy process. This was discussed with him. Most likely related to either idiopathic cardiomyopathy process or left bundle-branch block related cardiomyopathy process. His LV ejection fraction is improved on neurohormonal modulation. Will continue Entresto therapy at current dose. Continue metoprolol and will increase to 50 mg. He for further neurohormonal modulation suppression of cardiac arrhythmias. Signs and symptoms of heart failure were discussed advised to call me with any new symptoms. Follow-up echocardiogram in 6 months time. (2) CAD (coronary artery disease): Comment: Om 75-80% disease by cardiac catheterization, no symptoms of angina Code(s): I25.10 - Atherosclerotic heart disease of [place] coronary artery without angina pectoris Category: Medical Plan: Coronary artery disease, branch vessel disease. No symptoms of angina. Continue medical therapy. Low-dose aspirin therapy for life. Continue statin therapy with target goal LDL less than 70 mg/dL. Blood pressure is currently well optimized advised to monitor blood pressure at home maintain a log. Goal blood pressure less than 130/84. Low-salt diet was advised. Advised to maintain activity level as tolerated. (3) Cardiac arrhythmia: Code(s): I49.9 - Cardiac arrhythmia, unspecified Category: Medical Plan: Frequent ectopy with PACs and PVCs and despite persistent significant burden he continues to have improvement in his LV systolic function. Unlikely that cardiac arrhythmia is responsible for his cardiomyopathy process. This was discussed with him. His LV ejection fraction is improved and currently I do not think he requires an ICD therapy at this point in time. Will follow-up Holter monitor in 6 months time on increase metoprolol dose. Advise to avoid stimulants. Follow up in the clinic in 6 months time, sooner p.r.n.. Thank you for allowing me to partake in his care Orders: Orders ECG 3 day holter monitor 6 Months I49.9 - Cardiac arrhythmia, unspecified CA echo transthoracic complete 6 Months I42.9 - Cardiomyopathy, unspecified Medications: Changed From metoprolol succinate ER (Toprol XL) 50 mg PO DAILY 30 tabs 5RF To metoprolol succinate ER (Toprol XL) 50 mg PO BID 60 tabs 5RF Coding Level of Care Code Est Pt Level 4 (19513) Diagnoses Cardiomyopathy I42.9 CAD (coronary artery disease) I25.10 Cardiac arrhythmia I49.9
== END 2023-09-04 15:00 | disposition home or self-care (01) ==
PROVIDERS: PCP Internal Medicine; Visit Provider Internal Medicine Cardiovascular Disease
DX: I42.9 Cardiomyopathy, unspecified (principal); I25.10 Atherosclerotic heart disease of native coronary artery without angina pectoris; I49.9 Cardiac arrhythmia, unspecified
CPT/HCPCS: 99214

== ENCOUNTER → 2023-09-04 14:02 | Outpatient (BNVA) | payer MEDICARE, SELFPAY | PROVIDERS: PCP Internal Medicine; Visit Provider Internal Medicine Cardiovascular Disease | DX: I42.9 Cardiomyopathy, unspecified (principal); I25.10 Atherosclerotic heart disease of native coronary artery without angina pectoris; I10 Essential (primary) hypertension; I49.9 Cardiac arrhythmia, unspecified | CPT/HCPCS: 99212 ==

== ENCOUNTER 2023-10-29 12:15 | Outpatient (AMB) | payer MEDICARE, SELFPAY ==
[2023-10-29 12:34] VITALS: BP 120/66; PULSE 78; O2SAT 98; BMI 25.8
--- NOTE | 2023-10-29 12:34 | MHC.PC.OV ---
Vital Signs 10/29/23 12:34 Height 5 ft 9 in Weight 175 lb BMI 25.8 BP 120/66 Blood Pressure Location Rt brachial Position Sitting Pulse 78 Pulse Source Pulse Oximeter Pulse Oximetry (%) 98 Oxygen Delivery Method Room Air Intake Visit Reasons: 2-3 month follow up Allergies regadenoson [From Lexiscan] Adverse Reaction (Verified 10/29/23 12:38) hypotensive Medication List - Last Reconciled 10/29/23 by Ines Mcdowell MD amoxicillin 2,000 mg (4 x 500 mg) PO ONCE 1 day aspirin (Adult Low Dose Aspirin) 81 mg PO DAILY coenzyme Q10 (CoQ-10) 100 mg PO DAILY glucosamine-chondroitin 250-200 mg (Osteo Bi-Flex) 2 tabs PO TID ketoconazole 2% 1 appl topical DAILY latanoprost 0.005% drps ophthalmic (eye) lovastatin 40 mg PO DAILY metoprolol succinate ER (Toprol XL) 50 mg PO BID sacubitril-valsartan 49-51 mg (Entresto) 1 tab PO BID Tobacco use date assessed: 10/29/23 Fall risk assessment: No Falls in past year Last assessed Fall Risk: 10/29/23 Dental Screening Dental Screen Date: 04/20/23 HPI 2-3 month follow up HPI Details Pt presents for f/u HTN, nonischemic cardiomyopathy with improving EF up to 45%, hyperlipid, stable on meds. Patient has been walking at least 5 times a week for half an hour and denies dyspnea on exertion or exercise induced chest pain or palpitations. [facility] Medical History CAD (coronary artery disease) Annual physical exam Cataract UTI (urinary tract infection) Tobacco consumption Hyperlipidemia HTN (hypertension) Surgical History Hx of hernia repair H/O colonoscopy No pertinent past surgical history Family History Father Stomach cancer Mother No problems noted. Social History Housing: House Alcohol intake: never Patient Tobacco Use Status: Current someday Tobacco user Tobacco use type: Cigar e-Cigarette/Vaping Use: Never Used service: Yes Current occupational status: retired Cognitive needs: No Hearing needs: No Vision needs: Yes Questionnaire PHQ-9 Over the last 2 weeks, how often have you been bothered by any of the following problems? 1. Little interest or pleasure in doing things: not at all 2. Feeling down, depressed, or hopeless: not at all 3. Trouble falling or staying asleep, or sleeping too much: not at all 4. Feeling tired or having little energy: not at all 5. Poor appetite or overeating: not at all 6. Feeling bad about yourself - or that you are a failure or have let yourself or your family down: not at all 7. Trouble concentrating on things, such as reading the newspaper or watching television: not at all 8. Moving or speaking so slowly that other people could have noticed. Or the opposite - being so fidgety or restless that you have been moving around a lot more than usual: not at all 9. Thoughts that you would be better off or of hurting yourself in some way: not at all Total score: 0 Depression Screening Interpretation: Negative Depression Screening Done: Yes Source: Developed by Drs. Vivek Gregory, Angelica Lundberg, Joce Horne and colleagues, with an educational digna from [employer]. Thrive Questionnaire Date Thrive assessed: 06/20/22 I am a: Patient What is your living situation today?: I have a steady place to live Within the past 12 months, did the food you bought not last and you didn't have the money to get more?: Never true Within the past 12 months, did you worry whether your food would run out before you got money to buy more?: Never true Do you have trouble paying for medicines?: No Do you have trouble getting transportation to medical appointments?: No Do you have trouble paying your heating and electricity bill?: No Do you have trouble taking care of your child, family member or friend?: No Do you have trouble with day-to-day activities such as bathing, preparing meals, shopping, managing finances, etc.?: No Are you currently unemployed and looking for a job?: No Are you interested in more education?: No Please select the resources that you would like help with: None Currently or been in a relationship where the following occur: No concerns reported THRIVE Score: 0 AUDIT C Alcohol Use Questionnaire (AUDIT-C) 1. How often do you have a drink containing alcohol?: Never Total Score: 0 RADHA-7 AMB Questionnaire RADHA-7 Date RADHA - 7 assessed: 04/20/23 Feeling nervous, anxious, or on edge: 0 = Not at all Not being able to stop or control worryin = Not at all Worrying too much about different things: 0 = Not at all Trouble relaxin = Not at all Being so restless that it is hard to sit still: 0 = Not at all Becoming easily annoyed or irritable: 0 = Not at all Feeling afraid as if something awful might happen: 0 = Not at all Total RADHA-7 score (0-4 normal; 5-9 mild; 10-14 moderate; 15-21 severe): 0 Source: Developed by Drs. Vivek Gregory, Angelica Lundberg, Joce Horne and colleagues, with an educational digna from [employer]. Review of Systems Const All systems reviewed & are unremarkable except as noted in HPI and below Eyes Reports no additional complaints Resp Reports no additional complaints GI Reports no additional complaints Reports no additional complaints Physical exam (Primary Care) Vital Signs: Last Vital Signs Pulse 78 10/29/23 12:34 BP 120/66 10/29/23 12:34 Pulse Ox 98 10/29/23 12:34 Oxygen Delivery Method Room Air 10/29/23 12:34 BMI result Body Mass Index 25.8 Tobacco/Smoking Status: Tobacco use Status Tobacco use date assessed 10/29/23 10/29/23 12:42 Patient Tobacco Use Status Current someday Tobacco 10/29/23 12:35 Tobacco use type Cigar 10/29/23 12:35 e-Cigarette/Vaping Use Never Used 10/29/23 12:35 PHQ-9: PHQ-9 Score PHQ-9: Total score 0 10/29/23 12:35 Depression Screening Interpretation: Negative Thrive Assessment: Date of Thrive Assessment Date Thrive assessed 06/20/22 10/29/23 12:35 Currently or been in a relationship where the following occur: No concerns reported Const General: no acute distress HENMT Head: Yes normal to inspection Eyes General: appearance normal, both eyes and all related structures Neck Neck: Yes supple Resp Effort & Inspection: normal respiratory effort Auscultation: clear to auscultation bilaterally Cardio Rhythm: regular rhythm Heart sounds: S1 normal heart sound present and S2 normal heart sound present GI Inspection: Yes normal to inspection Palpation (GI): Soft to palpation Percussion: Yes normal to percussion Auscultation: normal bowel sounds Assessment and Plan Assessment & Plan (1) Cardiac arrhythmia: Comment: On metoprolol Code(s): I49.9 - Cardiac arrhythmia, unspecified (2) Cardiomyopathy: Comment: Echo 04/04 left ventricular systolic function 25-30%, global left ventricular hypokinesis, mild diastolic dysfunction, severe septal asymmetric hypertrophy, repeat Echo EF 45%, 07/2023 Code(s): I42.9 - Cardiomyopathy, unspecified Plan: Continue Entresto and beta lauren follow-up with Cardiology, return in 6 months or p.r.n. (3) Hyperlipidemia: Code(s): E78.5 - Hyperlipidemia, unspecified Plan: Continue statin Coding Level of Care Code Est Pt Level 4 (17264) Complex EM visit Add On G2211 Diagnoses Cardiac arrhythmia I49.9 Cardiomyopathy I42.9 Hyperlipidemia E78.5
== END 2023-10-29 15:56 | disposition home or self-care (01) ==
PROVIDERS: PCP Internal Medicine; Visit Provider Internal Medicine
DX: I49.9 Cardiac arrhythmia, unspecified (principal); I42.9 Cardiomyopathy, unspecified; E78.5 Hyperlipidemia, unspecified
CPT/HCPCS: 99214; G2211

== ENCOUNTER 2024-03-01 10:27 | Outpatient (AMB) | payer MEDICARE, SELFPAY ==
[2024-03-01 11:11] VITALS: BP 106/76; PULSE 58; TEMP 36.5; O2SAT 95; BMI 26.6
--- NOTE | 2024-03-01 11:11 | AM.OFFWIN_ITS ---
Intake Vital Signs 03/01/24 11:11 Height 5 ft 9 in Weight 180 lb BMI 26.6 BP 106/76 Blood Pressure Location Rt brachial Position Sitting Pulse 58 Pulse Source Pulse Oximeter Temp 97.7 F Temp Source Oral Pulse Oximetry (%) 95 Oxygen Delivery Method Room Air Intake Visit Reasons: EP blood in urine Intake Note: Pt is here today c/o blood in urine Patient Tobacco Use Status: Current someday Tobacco user Allergies regadenoson [From Lexiscan] Adverse Reaction (Verified 03/01/24 11:12) hypotensive PFSH Medical History CAD (coronary artery disease) Annual physical exam Cataract UTI (urinary tract infection) Tobacco consumption Hyperlipidemia HTN (hypertension) Surgical History Hx of hernia repair H/O colonoscopy No pertinent past surgical history Family History Father Stomach cancer Mother No problems noted. Social History Housing: House Alcohol intake: never Patient Tobacco Use Status: Current someday Tobacco user Tobacco use type: Cigar e-Cigarette/Vaping Use: Never Used service: Yes Current occupational status: retired Cognitive needs: No Hearing needs: No Vision needs: Yes Review of Systems Const Denies chills, Denies fatigue, Denies fever(s), Denies headache(s) and Denies weakness ENT Denies dizziness and Denies headache(s) Card Denies chest pain, Denies lightheadedness, Denies dyspnea and Denies other (Palpitations) Resp Denies cough, Denies dyspnea, Denies wheezing and Denies other ( shortness of breath) Details: See HPI Musc Denies numbness and Denies tingling Neuro Denies dizziness, Denies headache(s), Denies numbness, Denies tingling, Denies paresthesias and Denies weakness Psych Denies anxiety and Denies depression Endo Denies fatigue Aller/Immun Denies wheezing Physical Exam Vital Signs: Last Vital Signs Temp 97.7 F 03/01/24 11:11 Pulse 58 03/01/24 11:11 BP 106/76 03/01/24 11:11 Pulse Ox 95 03/01/24 11:11 Oxygen Delivery Method Room Air 03/01/24 11:11 BMI result Body Mass Index 26.6 Const General: no acute distress and well developed Nutritional Appearance: well nourished Orientation/consciousness: patient oriented x3 HEENT Head: Yes normocephalic and Yes atraumatic Eyes General: appearance normal, both eyes and all related structures Pupils: Equal, round and reactive pupils present EOM: EOMs intact bilaterally Resp Effort & Inspection: normal respiratory effort Auscultation: clear to auscultation bilaterally Cardio Rate: regular rate Rhythm: regular rhythm Heart sounds: S1 normal heart sound present, S2 normal heart sound present, no gallops, no murmurs and no rubs Other: No suprapubic tenderness and no CVA tenderness to percussion Neuro General: patient oriented x3 and gait normal Cranial nerves: Yes Equal, round and reactive pupils present Psych Affect: normal affect Results AMB Urinalysis, Automated UA Leukoctes 0 Pee/uL Last Edit by Maxine Heath CMA on 03/01/24 11:20 UA Nitrite Negative Last Edit by Maxine Heath CMA on 03/01/24 11:20 UA Urobilinogen 0.2 mg/dL Last Edit by Maxine Heath CMA on 03/01/24 11:20 UA Protein 30 mg/dL Last Edit by Maxine Heath CMA on 03/01/24 11:20 UA pH 6.0 Last Edit by Maxine Heath CMA on 03/01/24 11:20 UA Blood 200 Mike/uL Last Edit by Maxine Heath CMA on 03/01/24 11:20 UA Specific [place] 1.020 Last Edit by Maxine Heath CMA on 03/01/24 11:20 UA Ketone Negative Last Edit by Maxine Heath CMA on 03/01/24 11:20 UA Bilirubin 0 mg/dL Last Edit by Maxine Heath CMA on 03/01/24 11:20 UA Glucose 0 mg/dL Last Edit by Maxine Heath CMA on 03/01/24 11:20 Results Reviewed Results Reviewed: Laboratory Last Values Urine pH (Auto) 6.0 03/01/24 11:16 Specific [place] (Auto) 1.020 03/01/24 11:16 Urine Protein (Auto) 30 mg/dL 03/01/24 11:16 Glucose (UA)(Auto) 0 mg/dL 03/01/24 11:16 Urine Ketones (Auto) Negative 03/01/24 11:16 Urine Blood (Auto) 200 Mike/uL 03/01/24 11:16 Urine Nitrite (Auto) Negative 03/01/24 11:16 Urine Bilirubin (Auto) 0 mg/dL 03/01/24 11:16 Urine Urobilinogen (Auto) 0.2 mg/dL 03/01/24 11:16 Leukocyte Esterase (Auto) 0 Pee/uL 03/01/24 11:16 Assessment & Plan Assessment & Plan (1) Hematuria: Code(s): R31.9 - Hematuria, unspecified Plan: Gross hematuria in 83-year-old male with history of BPH who smokes cigars. Possible UTI and will treat empirically with Bactrim. Hydrate well. No pain and no history of urinary stones. Will send for urinalysis with microscopy, urine cytology, urine culture Schedule follow-up with your PCP. Go to ED if worsening prior to your visit with your primary. May need imaging/procedure such as CT, ultrasound or cystoscopy, or referral to urology. Orders: Orders AMB Urinalysis Automated Today Z13.9 - Encounter for screening, unspecified Urine Culture Today R31.9 - Hematuria, unspecified UA w Microscopic Today R31.9 - Hematuria, unspecified Urine Cytology Today R31.9 - Hematuria, unspecified Medications: New sulfamethoxazole-trimethoprim 800-160 mg (Bactrim DS) 1 tab PO Q12H 10 days 20 tabs 0RF Coding Level of Care Code Est Pt Level 3 (70476) Diagnoses Hematuria R31.9
== END 2024-03-01 12:46 | disposition home or self-care (01) ==
LOC: HO.HMCWIC 10:28
PROVIDERS: PCP Internal Medicine; Visit Provider Family Medicine
DX: Z13.9 Encounter for screening, unspecified (principal); R31.9 Hematuria, unspecified

== ENCOUNTER 2024-03-01 10:27 | Outpatient (REF) | payer MEDICARE, SELFPAY ==
[2024-03-01 12:51] LABS: Urine Cytology See Pathology rpt
[2024-03-01 13:08] LABS: Appearance Urine Clear; Color Urine Yellow; Glucose Urine UA Negative (Negative); Leukocyte Esterase Urine Small (1+) (Negative); Nitrite Urine Negative (Negative); Specific Gravity - Urine 1.015 (1.005-1.025); UMIC TRIGGER UA YES; Urine Blood Large (3+) (Negative); Urine Ketones Negative (Negative); Urine Protein 30 (1+) mg/dL (Neg-Trace)
[2024-03-01 13:20] LABS: Bacteria Urine None Seen (None Seen); Hyaline Casts Urine 0-2 /LPF (0-2); RBC Urine >20 /HPF (0-2); Squamous Epithelial Cell Urine 0-2 /HPF (0-2); WBC Urine 0-5 /HPF (0-5)
== END 2024-03-01 10:28 | disposition home or self-care (01) ==
LOC: HO.LAB 10:27
PROVIDERS: PCP Internal Medicine; Visit Provider Family Medicine
DX: R31.9 Hematuria, unspecified (principal)
CPT/HCPCS: 81001; 81003; 87086; 88112; 99212

== ENCOUNTER → 2024-03-03 08:38 | Outpatient (REF) | payer MEDICARE, SELFPAY ==
--- NOTE | 2024-03-03 08:41 | CA_ITS ---
Transthoracic Echocardiogram Patient (Last, First, Middle): Zheng Juarez T Gender: Male Date of : 1940 Age: 83 Procedure Date: 03/03/2024 Procedure Type: Transthoracic Echocardiogram Location: OP Height: 175.26 cm Weight: 79.83 kg BSA: 1.96 m2 Heart Rate: 68 bpm BP: 106 / 76 mmHg Senior Java Data Architect: SB Referring MD: Omid Vuong MD Symptoms: I42.9 - Cardiomyopathy, unspecified Study Quality: Adequate w contrast ECG Rhythm: Sinus Conclusions: - The left ventricular systolic function is mildly decreased. The calculated ejection fraction is 49% by biplane method. - No obvious valvular pathology seen on this study. Findings Procedure Information Contrast agent, definity, is being given per protocol without apparent complications. The quality of the study was technically difficult. The study quality is limited by lung artifact. Left Ventricle Normal left ventricular cavity size. There is normal left ventricular wall thickness. The left ventricular systolic function is mildly decreased. The calculated ejection fraction is 49% by biplane method. There is paradoxical septal motion consistent with a left bundle branch block. Evidence suggests grade I (mild) diastolic dysfunction. Right Ventricle Moderately increased right ventricular cavity size. There is normal right ventricular systolic function. Atria The left atrium is normal in size. The right atrium is mildly dilated. Aortic Valve There is a normal trileaflet aortic valve. There is mild calcification of the aortic valve. There is no aortic valve stenosis. There is no aortic valve regurgitation. Mitral Valve There is mild mitral annular calcification. There is trace mitral valve regurgitation. There is no mitral valve stenosis. Pulmonic Valve The pulmonic valve is likely normal. Tricuspid Valve There is mild tricuspid valve regurgitation. There is no evidence of pulmonary hypertension. Great Vessels The asc aorta is normal in size. Small plaque is seen in the sino tubular ridge. Venous The inferior vena cava is normal in size and collapses greater than 50% with inspiration. Pericardium/Pleural There is no evidence of pericardial effusion. Prior Study Comparison No significant change compared to prior study dated: 07/24/2023. Recommendations, Care & Conclusions No obvious valvular pathology seen on this study. Measurements 2D Linear Measurements IVSd: 0.81 0.6-0.9/0.6-1.0 cm LVIDd: 5.63 3.9-5.3/4.2-5.9 cm LVIDd Index: 2.87 2.4-3.2/2.2-3.1 cm/m2 LVIDs: 3.96 2.0-3.6 cm LVPWd: 0.93 0.7-1.1 cm LA Diam: 3.90 2.7-3.8/3.0-4.0 cm LAIDs Index: 1.99 1.5-2.3 cm/m2 LV Mass: 231.08 67-162/88-224 g LV Mass Index: 117.90 43-95/49-115 g/m2 LVOT Diam: 2.30 3.0+(-)1.3 cm 2D Systolic Function EF 4C: 46.00 >55% EF 2C: 53.10 >55% EF BiP: 49.30 >55% Mitral Valve MV Pk E: 0.66 MV PK A: 0.90 MV Decel Time: 257.00 E/A: 0.70 E'Lateral: 4.90 E'Medial: 4.13 E/E' Med: 16.10 E/E' Lat: 13.60 PHT: 75.00 MVA PHT: 2.93 Decel [place]: 2.58 Aortic Valve AoV Pk Dany: 1.17 AoV Pk Grad: 5.00 BHARTI: 2.82 LVOT LVOT Pk Dany: 0.79 LVOT Mn Dany: 0.54 LVOT VTI: 0.18 LVOT Pk Grad: 3.00 LVOT Mn Grad: 1.00 LVOT Diam: 2.30 LVOT Area: 4.15 Diastolic Function MV Pk E: 0.66 MV Pk A: 0.90 E/A: 0.70 E'Medial: 4.13 E/E' Med: 16.10 E' Laterial: 4.90 E/E' Lat: 13.60 Right Ventricle TAPSE (mm): 22.40 TVS' Dany: 10.10 Tricuspid Valve TR Pk Dany: 2.47 TR Pk Grad: 24.00 RA Press: 3.00 RVSP: 27.00 Great Vessels Aorta Sinus of Valsalva: 3.70 2.0-3.5 cm Ao Asc: 3.50 2.1-3.4 cm Pulmonary Veins Pulm Vein S/D 1.60 Pulmonary Valve PV Pk Dany: 1.72 Peak PV Grad: 12.00 Updated in Other Vendor System with Status of Final Andrés Muse MD electronically signed on 03/03/2024 12:41:09 PM with status of Final
== END ==
LOC: HO.CARD 08:38
PROVIDERS: PCP Internal Medicine; Visit Provider Internal Medicine Cardiovascular Disease
DX: I49.9 Cardiac arrhythmia, unspecified (principal); I49.8 Other specified cardiac arrhythmias
CPT/HCPCS: 93242; 93306; Q9957

== ENCOUNTER → 2024-03-03 08:41 | Outpatient (BNV) | payer MEDICARE, SELFPAY | PROVIDERS: PCP Internal Medicine; Visit Provider Internal Medicine | DX: I42.8 Other cardiomyopathies (principal); I36.1 Nonrheumatic tricuspid (valve) insufficiency; I35.8 Other nonrheumatic aortic valve disorders; I44.7 Left bundle-branch block, unspecified | CPT/HCPCS: 93306 ==

== ENCOUNTER 2024-03-11 12:30 | Outpatient (AMB) | payer MEDICARE, SELFPAY ==
[2024-03-11 12:46] VITALS: BP 120/78; PULSE 56; BMI 25.7
--- NOTE | 2024-03-11 12:46 | A.OFFVIS_ITS ---
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: No Allergies regadenoson [From Lexiscan] Adverse Reaction (Verified 03/01/24 11:12) hypotensive Medication List - Last Reconciled 03/11/24 by Omid Vuong MD amoxicillin 2,000 mg (4 x 500 mg) PO ONCE 1 day aspirin (Adult Low Dose Aspirin) 81 mg PO DAILY coenzyme Q10 (CoQ-10) 100 mg PO DAILY glucosamine-chondroitin 250-200 mg (Osteo Bi-Flex) 2 tabs PO TID ketoconazole 2% 1 appl topical DAILY latanoprost 0.005% drps ophthalmic (eye) lovastatin 40 mg PO DAILY metoprolol succinate ER (Toprol XL) 50 mg PO BID sacubitril-valsartan 49-51 mg (Entresto) 1 tab PO BID HPI Comments Details: Zheng comes for follow-up. He has been doing well from cardiac perspective. Denies any cardiac symptoms. Denies any prolonged palpitation irregular heartbeat. No lightheadedness, syncope. No worsening shortness of breath, orthopnea, PND. Denies any chest pain. Taking all his medications. Most recent echocardiogram shows LVEF of 49%, no significant changes. [facility] Medical History CAD (coronary artery disease) Annual physical exam Cataract UTI (urinary tract infection) Tobacco consumption Hyperlipidemia HTN (hypertension) Surgical History Hx of hernia repair H/O colonoscopy No pertinent past surgical history Family History Father Stomach cancer Mother No problems noted. Social History Housing: House Alcohol intake: never Patient Tobacco Use Status: Current someday Tobacco user Tobacco use type: Cigar e-Cigarette/Vaping Use: Never Used service: Yes Current occupational status: retired Cognitive needs: No Hearing needs: No Vision needs: Yes Review of Systems Const Denies chills, Denies fatigue, Denies fever(s), Denies frequent falls, Denies weakness, Denies weight gain and Denies weight loss ENT Denies dizziness Card Denies chest pain, Denies leg edema, Denies lightheadedness, Denies palpitations, Denies dyspnea, Denies dyspnea on exertion, Denies orthopnea and Denies other (loss of consciousness) Resp Denies cough, Denies dyspnea and Denies dyspnea on exertion GI Denies hematochezia and Denies change in stool character Musc Denies abnormal gait, Denies muscle weakness, Denies numbness, Denies radiating pain into limb and Denies tingling Neuro Denies Abnormal speech present, Denies abnormal gait, Denies dizziness, Denies frequent falls, Denies numbness, Denies tingling and Denies weakness Endo Denies fatigue and Denies palpitations Physical Exam Vital Signs: Last Vital Signs Pulse 56 03/11/24 12:46 BP 120/78 03/11/24 12:46 BMI result Body Mass Index 25.7 Const General: cooperative, comfortable, no acute distress, alert, awake and Physically active Nutritional Appearance: average body habitus Orientation/consciousness: patient oriented x3 Limitations: no limitations HEENT Head: Yes normocephalic and Yes atraumatic Neck Neck: Yes trachea midline, Yes supple and Yes no JVD Resp Effort & Inspection: normal respiratory effort Auscultation: clear to auscultation bilaterally Cardio Jugular venous distension: no JVD Palpation: abnormal PMI displaced PMI Rate: regular rate Rhythm: abnormal rhythm with ectopic beats Heart sounds: S1 normal heart sound present, S2 normal heart sound present, no click, no gallops and Murmur heart sound present systolic early GI Auscultation: normal bowel sounds Skin General skin exam: no rashes or lesions noted Neuro General: patient oriented x3 and no focal motor deficits Speech: No Abnormal speech present Extrem General: Yes no clubbing, cyanosis or edema Psych Appearance: grossly normal Assessment & Plan Assessment & Plan (1) Cardiomyopathy: Comment: Echo 04/04 left ventricular systolic function 25-30%, global left ventricular hypokinesis, mild diastolic dysfunction, severe septal asymmetric hypertrophy, repeat Echo EF 45%, 07/2023 Code(s): I42.9 - Cardiomyopathy, unspecified Category: Medical Plan: Cardiomyopathy with mild lead reduced LV ejection fraction 49% now on current neurohormonal modulation without signs or symptoms of heart failure. Has done extremely well. Cardiomyopathy is nonischemic in nature. Will follow up with echocardiogram next year. Continue current neurohormonal modulation with Entresto as well as metoprolol therapy. He is tolerating these therapy well. Advised to monitor blood pressure at home. Signs and symptoms of heart failure were discussed. (2) CAD (coronary artery disease): Comment: Om 75-80% disease by cardiac catheterization, no symptoms of angina Code(s): I25.10 - Atherosclerotic heart disease of squ[place]in coronary artery without angina pectoris Category: Medical Plan: CAD with branch vessel disease without any symptoms of angina. Continue metoprolol therapy. Continue low-dose aspirin therapy. Should be on statin therapy with target goal LDL less than 70 mg/dL. No symptoms of angina no interventions required at this point time. (3) Cardiac arrhythmia: Comment: On metoprolol Code(s): I49.9 - Cardiac arrhythmia, unspecified Category: Medical Plan: Cardiac arrhythmias with frequent PACs and PVCs without symptoms. Continue metoprolol therapy avoidance of stimulants was discussed. No alternative therapy indicated. Follow up in the clinic in 1 year's time, sooner p.r.n.. Thank you for allowing me to partake in his care Orders: Orders CA echo transthoracic complete 1 Year I42.9 - Cardiomyopathy, unspecified Medications: Refilled sacubitril-valsartan 49-51 mg (Entresto) 1 tab PO BID 60 tabs 5RF Coding Level of Care Code Est Pt Level 4 (10748) Complex EM visit Add On G2211 Diagnoses Cardiomyopathy I42.9 CAD (coronary artery disease) I25.10 Cardiac arrhythmia I49.9
== END 2024-03-11 13:24 | disposition home or self-care (01) ==
PROVIDERS: PCP Internal Medicine; Visit Provider Internal Medicine Cardiovascular Disease
DX: I42.9 Cardiomyopathy, unspecified (principal); I25.10 Atherosclerotic heart disease of native coronary artery without angina pectoris; I49.9 Cardiac arrhythmia, unspecified
CPT/HCPCS: 99214; G2211

== ENCOUNTER → 2024-03-11 12:30 | Outpatient (BNVA) | payer MEDICARE, SELFPAY | PROVIDERS: PCP Internal Medicine; Visit Provider Internal Medicine Cardiovascular Disease | DX: I42.9 Cardiomyopathy, unspecified (principal); I49.9 Cardiac arrhythmia, unspecified; I25.10 Atherosclerotic heart disease of native coronary artery without angina pectoris | CPT/HCPCS: 99212 ==

== ENCOUNTER 2024-03-14 10:00 | Outpatient (AMB) | payer MEDICARE, SELFPAY ==
[2024-03-14 10:06] VITALS: BP 110/66; PULSE 90; O2SAT 97; BMI 25.8
--- NOTE | 2024-03-14 10:06 | MHC.PC.OV ---
Vital Signs 03/14/24 10:06 Height 5 ft 9 in Weight 175 lb BMI 25.8 BP 110/66 Blood Pressure Location Rt brachial Position Sitting Pulse 90 Pulse Source Pulse Oximeter Pulse Oximetry (%) 97 Oxygen Delivery Method Room Air Intake Visit Reasons: Allergic reaction from UTI med Intake Note: Pt is here today for ER follow up visit. Allergies sulfamethoxazole [From Bactrim] Adverse Reaction (Intermediate, Verified 03/14/24 10:24) face swelling trimethoprim [From Bactrim] Adverse Reaction (Intermediate, Verified 03/14/24 10:24) face swelling regadenoson [From Lexiscan] Adverse Reaction (Verified 03/14/24 10:10) hypotensive Medication List - Last Reconciled 03/14/24 by Ines Mcdowell MD amoxicillin 2,000 mg (4 x 500 mg) PO ONCE 1 day aspirin (Adult Low Dose Aspirin) 81 mg PO DAILY coenzyme Q10 (CoQ-10) 100 mg PO DAILY glucosamine-chondroitin 250-200 mg (Osteo Bi-Flex) 2 tabs PO TID ketoconazole 2% 1 appl topical DAILY latanoprost 0.005% drps ophthalmic (eye) lovastatin 40 mg PO DAILY metoprolol succinate ER (Toprol XL) 50 mg PO BID sacubitril-valsartan 49-51 mg (Entresto) 1 tab PO BID Tobacco use date assessed: 03/14/24 Fall risk assessment: No Falls in past year Last assessed Fall Risk: 03/14/24 Dental Screening Dental Screen Date: 03/14/24 Did you have a dental visit in the last 12 months?: Yes Did you have a dental problem in the last 6 months where you did not have access to dental care?: No Was dental information given to patient?: Patient has dentist HPI Allergic reaction from UTI med HPI Details Pt developed swelling of the face while taking Bactrim for 6 days and was seen at [facility] ER treated with Bactrim and prednisone. Facial rash and swelling resolved. Patient was seen in urgent care 2 weeks ago with the symptoms of painless hematuria. He was started on Bactrim for presumed UTI. Hematuria resolved and patient denies fever chills abdominal pain [facility] Medical History CAD (coronary artery disease) Annual physical exam Cataract UTI (urinary tract infection) Tobacco consumption Hyperlipidemia HTN (hypertension) Surgical History Hx of hernia repair H/O colonoscopy No pertinent past surgical history Family History Father Stomach cancer Mother No problems noted. Social History Housing: House Alcohol intake: never Patient Tobacco Use Status: Current someday Tobacco user Tobacco use type: Cigar e-Cigarette/Vaping Use: Never Used service: Yes Current occupational status: retired Cognitive needs: No Hearing needs: No Vision needs: Yes Questionnaire PHQ-9 Over the last 2 weeks, how often have you been bothered by any of the following problems? 1. Little interest or pleasure in doing things: not at all 2. Feeling down, depressed, or hopeless: not at all 3. Trouble falling or staying asleep, or sleeping too much: not at all 4. Feeling tired or having little energy: not at all 5. Poor appetite or overeating: not at all 6. Feeling bad about yourself - or that you are a failure or have let yourself or your family down: not at all 7. Trouble concentrating on things, such as reading the newspaper or watching television: not at all 8. Moving or speaking so slowly that other people could have noticed. Or the opposite - being so fidgety or restless that you have been moving around a lot more than usual: not at all 9. Thoughts that you would be better off or of hurting yourself in some way: not at all Total score: 0 Depression Screening Interpretation: Negative Depression Screening Done: Yes 46422 - PHQ-9 Billing: Yes Source: Developed by Drs. Vivek Gregory, Angelica Lundberg, Joce Horne and colleagues, with an educational digna from [employer]. Thrive Questionnaire Date Thrive assessed: 03/14/24 I am a: Patient What is your living situation today?: I have a steady place to live Within the past 12 months, did the food you bought not last and you didn't have the money to get more?: Never true Within the past 12 months, did you worry whether your food would run out before you got money to buy more?: Never true Do you have trouble paying for medicines?: No Do you have trouble getting transportation to medical appointments?: No Do you have trouble paying your heating and electricity bill?: No Do you have trouble taking care of your child, family member or friend?: No Do you have trouble with day-to-day activities such as bathing, preparing meals, shopping, managing finances, etc.?: No Are you currently unemployed and looking for a job?: No Are you interested in more education?: No Please select the resources that you would like help with: None THRIVE Score: 0 AUDIT C Alcohol Use Questionnaire (AUDIT-C) 1. How often do you have a drink containing alcohol?: Never 3. How often do you have six or more drinks on one occasion?: Never Total Score: 0 RADHA-7 AMB Questionnaire RADHA-7 Date RADHA - 7 assessed: 03/14/24 Feeling nervous, anxious, or on edge: 0 = Not at all Not being able to stop or control worryin = Not at all Worrying too much about different things: 0 = Not at all Trouble relaxin = Not at all Being so restless that it is hard to sit still: 0 = Not at all Becoming easily annoyed or irritable: 0 = Not at all Feeling afraid as if something awful might happen: 0 = Not at all Total RADHA-7 score (0-4 normal; 5-9 mild; 10-14 moderate; 15-21 severe): 0 Source: Developed by Drs. Vivek Gregory, Angelica Lundberg, Joce Horne and colleagues, with an educational digna from [employer]. RADHA-7 Assessment Billing RADHA-7 Assessment Tool: RADHA-7 Assessment 60944 Review of Systems Const All systems reviewed & are unremarkable except as noted in HPI and below Eyes Reports no additional complaints ENT Reports no additional complaints Card Reports no additional complaints Resp Reports no additional complaints GI Reports no additional complaints Reports no additional complaints Physical exam (Primary Care) Vital Signs: Last Vital Signs Pulse 90 03/14/24 10:06 BP 110/66 03/14/24 10:06 Pulse Ox 97 03/14/24 10:06 Oxygen Delivery Method Room Air 03/14/24 10:06 BMI result Body Mass Index 25.8 Tobacco/Smoking Status: Tobacco use Status Tobacco use date assessed 03/14/24 03/14/24 10:10 Patient Tobacco Use Status Current someday Tobacco 03/14/24 10:08 Tobacco use type Cigar 03/14/24 10:08 e-Cigarette/Vaping Use Never Used 03/14/24 10:08 Depression Screening Interpretation: Negative Thrive Assessment: Date of Thrive Assessment Date Thrive assessed 03/14/24 03/14/24 10:08 HENMT Head: Yes normal to inspection Neck Neck: Yes supple Resp Effort & Inspection: normal respiratory effort Auscultation: clear to auscultation bilaterally Cardio Rhythm: regular rhythm Heart sounds: S1 normal heart sound present and S2 normal heart sound present GI Inspection: Yes normal to inspection Palpation (GI): Soft to palpation Percussion: Yes normal to percussion Auscultation: normal bowel sounds Coding Level of Care Code Est Pt Level 3 (76273) Diagnoses Hematuria R31.9 Urinary retention R33.9 Additional Codes RADHA-7 Assessment Billing - RADHA-7 Assessment Tool: RADHA-7 Assessment 08778 ([id number]) PHQ-9 - 95421 - PHQ-9 Billing: Yes ([id number]) Assessment & Plan Assessment & Plan (1) Hematuria: Code(s): R31.9 - Hematuria, unspecified Category: Medical Plan: Repeat urinalysis and urine culture. Bladder scan will be obtained to rule out urinary retention and CT urogram will be scheduled to evaluate for renal source of hematuria. Patient will be referred to Urology for cystoscopy (2) Urinary retention: Code(s): R33.9 - Retention of urine, unspecified Category: Medical Plan: Obtain bladder scan to evaluate for urinary retention Orders: Orders US bladder Today R31.9 - Hematuria, unspecified, R33.9 - Retention of urine, unspecified UA w Microscopic Today R31.9 - Hematuria, unspecified, R33.9 - Retention of urine, unspecified Creatinine Today R31.9 - Hematuria, unspecified CT urogram Today R31.9 - Hematuria, unspecified Urine Culture Today R31.9 - Hematuria, unspecified, R33.9 - Retention of urine, unspecified Blood Urea Nitrogen Today R31.9 - Hematuria, unspecified Referrals Urology Referral R31.9 - Hematuria, unspecified
== END 2024-03-14 10:54 | disposition home or self-care (01) ==
PROVIDERS: PCP Internal Medicine; Visit Provider Internal Medicine
DX: R31.9 Hematuria, unspecified (principal); R33.9 Retention of urine, unspecified

== ENCOUNTER → 2024-03-14 10:00 | Outpatient (BNVA) | payer MEDICARE, SELFPAY | PROVIDERS: PCP Internal Medicine; Visit Provider Internal Medicine ==

== ENCOUNTER 2024-03-14 13:14 | Outpatient (REF) | payer MEDICARE, SELFPAY ==
--- NOTE | ~2024-03-14 | US_ITS ---
CLINICAL HISTORY: R31.9 - Hematuria, unspecified US Urinary Bladder Comparison: None Findings: The urinary bladder is unremarkable. Prevoid volume: 207 mL Postvoid volume: 23 mL Ureteral jets are visualized bilaterally. Prostate volume 59 mL. There is a cystic area of the prostate gland. IMPRESSION: Unremarkable urinary bladder Prostatomegaly This document has been electronically signed by: Froylan Sauceda MD on 03/14/2024 15:05:44
== END 2024-03-14 13:15 | disposition home or self-care (01) ==
LOC: HO.HMGCX 13:14
PROVIDERS: PCP Internal Medicine; Visit Provider Internal Medicine
DX: R31.9 Hematuria, unspecified (principal); R33.9 Retention of urine, unspecified
CPT/HCPCS: 76857; 96127; 99212

== ENCOUNTER → 2024-03-14 13:18 | Outpatient (BNV) | payer MEDICARE, SELFPAY | PROVIDERS: PCP Internal Medicine; Visit Provider Nuclear Medicine | DX: R31.9 Hematuria, unspecified (principal) | CPT/HCPCS: 76857 ==

== ENCOUNTER 2024-04-07 09:25 | Outpatient (AMB) | payer MEDICARE, SELFPAY ==
[2024-04-07 09:30] VITALS: BP 118/68; PULSE 51; TEMP 36.6; O2SAT 98; BMI 26.0
--- NOTE | 2024-04-07 09:30 | AM.OFFVISMDC ---
Intake Vital Signs 04/07/24 09:30 Height 5 ft 9 in Weight 176 lb BMI 26.0 BP 118/68 Blood Pressure Location Lt brachial Position Sitting Pulse 51 Pulse Source Pulse Oximeter Temp 97.8 F Temp Source Oral Pulse Oximetry (%) 98 Oxygen Delivery Method Room Air Intake Visit Reasons: SWV [id number] Allergies sulfamethoxazole [From Bactrim] Adverse Reaction (Intermediate, Verified 03/14/24 10:24) face swelling trimethoprim [From Bactrim] Adverse Reaction (Intermediate, Verified 03/14/24 10:24) face swelling regadenoson [From Lexiscan] Adverse Reaction (Verified 03/14/24 10:10) hypotensive Medication List - Last Reconciled 04/07/24 by Ines Mcdowell MD amoxicillin 2,000 mg (4 x 500 mg) PO ONCE 1 day aspirin (Adult Low Dose Aspirin) 81 mg PO DAILY coenzyme Q10 (CoQ-10) 100 mg PO DAILY glucosamine-chondroitin 250-200 mg (Osteo Bi-Flex) 2 tabs PO TID ketoconazole 2% 1 appl topical DAILY latanoprost 0.005% drps ophthalmic (eye) lovastatin 40 mg PO DAILY metoprolol succinate ER 50 mg PO DAILY sacubitril-valsartan 49-51 mg (Entresto) 1 tab PO BID HPI SWV G0439 HPI Details Initiated the conversation about Advanced Directives. Advanced Directives help? patients prepare for current and future decisions about their medical treatment? and place of care. Discussed with patient that it is a process where a patients? current condition and prognosis are reviewed, their wishes for information? regarding their illness are elicited, and likely medical dilemmas are presented? and options discussed. The form can be amended as needed, reviewed yearly and? make changes as needed IPPE/AWV ? year old presents? for her ? Annual? Wellness Visit, initial visit.? Medical / Social History Reviewed? Past Medical History ?Yes? . ? [place]? of Care / Care Team list updated ?Yes . ? Surgical/Hospitalization? History ?Yes . ? Current Medications? (including OTC and supplements) ?Yes . ? Family History ?Yes? . ? Tobacco? Control form ?Yes . ? AUDIT-C (Alcohol use) form? ?Yes . ? Illicit drug use in Social? History ?Yes . ? Current diagnosis of? depression? ?No ? Appropriate PHQ2/PHQ9? completed ?Yes . ? Data entered by ?[facility]? [facility] and reviewed by provider ? Fall Risk ? Fall? History? Have you had any falls with? injury in the past year? ?No . ? Have you had two or more? falls in the past year? ?No . ? Fall Risk Assessment: ?No? falls in the past year . ? HRA filled out by? the patient, reviewed by Provider and scanned. ? IPPE/AWV ? Balance? Romberg? ?Yes . ? Tandem? walk ?Yes . ? Walk and? Turn ?Yes . ? Rise from? sit to stand ?Yes . ?Vision? Corrective? lens ?Yes ? Vision? screen ? Up-to-date, has an appointment [] for vision? screening and glaucoma screening ?Hearing? Whisper? test ?pass .? Initiated the conversation about Advanced Directives. Advanced Directives help? patients prepare for current and future decisions about their medical treatment? and place of care. Discussed with patient that it is a process where a patients? current condition and prognosis are reviewed, their wishes for information? regarding their illness are elicited, and likely medical dilemmas are presented? and options discussed. The form can be amended as needed, reviewed yearly and? make changes as needed Written? Plan?Completed. See Patient? Documents. [facility] Medical History CAD (coronary artery disease) Annual physical exam Cataract UTI (urinary tract infection) Tobacco consumption Hyperlipidemia HTN (hypertension) Surgical History Hx of hernia repair H/O colonoscopy No pertinent past surgical history Family History Father Stomach cancer Mother No problems noted. Social History Housing: House Alcohol intake: never Patient Tobacco Use Status: Current someday Tobacco user Tobacco use type: Cigar e-Cigarette/Vaping Use: Never Used service: Yes Current occupational status: retired Cognitive needs: No Hearing needs: No Vision needs: Yes Questionnaire Medicare Wellness Checkup What is your age?: 80 or older What gender do you identify with?: male During the past 4 weeks, how much have you been bothered by emotional problems such as feeling anxious, depressed, irritable, sad or downhearted, and blue?: not at all During the past 4 weeks, has your physical & emotional health limited your social activities with family, friends, neighbors, or groups?: not at all During the past 4 weeks, how much bodily pain have you generally had?: very mild pain During the past 4 weeks, was someone available to help you if you needed & wanted help?: yes, quite a bit During the past 4 weeks, what was the hardest physical activity you could do for at least 2 minutes?: moderate Can you get to places out of walking distance without help? (For eg., can you travel alone on buses, taxis or drive your car?): Yes Can you go shopping for groceries or clothes without someone's help?: Yes Can you prepare your own meals?: Yes Can you do your housework without help?: Yes Because of any health problems, do you need the help of another person with your personal care needs such as eating, bathing, dressing or getting around the house?: No Can you handle your own money without help?: Yes During the past 4 weeks, how would you rate your health in general?: very good During the past 4 weeks how have things been going for you?: very well; could hardly better Are you having difficulties driving your car?: no Do you always fasten your seat belt when you are in a car?: yes, usually During past 4 weeks, have you been bothered by the following: never: Falling or dizzy when standing up, Sexual problems?, Trouble eating well?, Teeth or denture problems? and Problems using the telephone? and seldom: Tiredness or fatigue? Have you fallen 2 or more times in the past year?: No Are you afraid of falling?: No Are you a smoker?: yes, but I'm not ready to quit During the past 4 weeks, how many drinks of wine, beer, or other alcoholic beverages did you have?: no alcohol at all Do you exercise for about 20 minutes 3 or more times a week?: yes, some of the time Have you been given information to help with the following?: yes: Hazards in your house that might hurt you? and no: Keeping track of your medications? How often do you have trouble taking medicines the way you have been told to take them?: I always take medicine as prescribed How confident are you that you can control & manage most of your health problems?: very confident What is your race?: White Mini Mental State Exam (MMSE) Orientation What is the (year) (season) (date) (day) (month)?: year, season, date, day and month Where are we (state) (county) (town or city) (hospital) (floor)?: state, county, town or city, hospital/clinic and floor Registration Name of 3 unrelated objects clearly and slowly, then ask patient to repeat all 3 of them. (1st repeat determines score. Make sure they can repeat all three): object 1, object 2 and object 3 Attention & Calculation (CHOOSE ONE) Spell WORLD backwards (DLROW): 5 letters Recall Ask patient to repeat the 3 items from question #3.: object 1, object 2 and object 3 Language Show patient a wristwatch & ask what it is. Repeat for pencil.: watch and pencil Ask the patient to repeat the phrase 'No ifs, ands, or buts' after you.: correct Ask the patient to 'take a piece of paper with their right hand' 'fold paper in half' 'place paper on floor': take paper in right hand, fold paper in half and place paper on floor Print the sentence 'CLOSE YOUR EYES' on a piece. If patient actually closes eyes then score.: followed written direction Give patient a blank piece of paper & ask to write a sentence. Score if it contains a noun & verb.: sentence contains subject and verb Score Score: 29 PHQ-9 Over the last 2 weeks, how often have you been bothered by any of the following problems? 1. Little interest or pleasure in doing things: not at all 2. Feeling down, depressed, or hopeless: not at all 3. Trouble falling or staying asleep, or sleeping too much: not at all 4. Feeling tired or having little energy: not at all 5. Poor appetite or overeating: not at all 6. Feeling bad about yourself - or that you are a failure or have let yourself or your family down: not at all 7. Trouble concentrating on things, such as reading the newspaper or watching television: not at all 8. Moving or speaking so slowly that other people could have noticed. Or the opposite - being so fidgety or restless that you have been moving around a lot more than usual: not at all 9. Thoughts that you would be better off or of hurting yourself in some way: not at all Total score: 0 Source: Developed by Drs. Vivek Gregory, Angelica Lundberg, Joce Horne and colleagues, with an educational digna from [employer]. Review of Systems Const All systems reviewed & are unremarkable except as noted in HPI and below Reports no additional complaints Eyes Reports no additional complaints ENT Reports no additional complaints Card Reports no additional complaints Resp Reports no additional complaints GI Reports no additional complaints Reports no additional complaints Musc Reports no additional complaints Physical Exam Vital Signs: Last Vital Signs Temp 97.8 F 04/07/24 09:30 Pulse 51 04/07/24 09:30 BP 118/68 04/07/24 09:30 Pulse Ox 98 04/07/24 09:30 Oxygen Delivery Method Room Air 04/07/24 09:30 BMI result Body Mass Index 26.0 Const General: no acute distress HEENT Head: Yes normal to inspection Ears: hearing grossly normal bilaterally Neck Neck: Yes no lymphadenopathy and Yes supple Resp Effort & Inspection: normal respiratory effort Auscultation: clear to auscultation bilaterally Cardio Rhythm: regular rhythm Heart sounds: S1 normal heart sound present and S2 normal heart sound present GI Inspection: Yes normal to inspection Palpation (GI): Soft to palpation Percussion: Yes normal to percussion Auscultation: normal bowel sounds General: Yes Bimanual renal exam normal bilaterally Extrem General: Yes no clubbing, cyanosis or edema Assessment & Plan Assessment & Plan (1) CAD (coronary artery disease): Comment: Om 75-80% disease by cardiac catheterization, no symptoms of angina Code(s): I25.10 - Atherosclerotic heart disease of [place] coronary artery without angina pectoris Plan: Continue aspirin beta lauren and statin (2) Cardiomyopathy: Comment: Echo 04/04 left ventricular systolic function 25-30%, global left ventricular hypokinesis, mild diastolic dysfunction, severe septal asymmetric hypertrophy, repeat Echo EF 45%, 07/2023 Code(s): I42.9 - Cardiomyopathy, unspecified Plan: Continue Entresto and metoprolol follow-up with the Cardiology annually (3) Microscopic hematuria: Comment: smoker, Pt will have CT urogram 04/2023 and was referred to urology Code(s): R31.29 - Other microscopic hematuria Plan: Referred to urology check urine cytology and CT urogram (4) Annual physical exam: Code(s): Z00.00 - Encounter for general adult medical examination without abnormal findings Plan: Well-balanced diet regular physical activity discussed with the patient. Follow-up in 6 months with a fasting labs before (5) Tobacco consumption: Comment: Smokes 2 cigars a day, not interested in quitting Code(s): Z72.0 - Tobacco use Plan: Tobacco quitting discussed with the patient (6) Cardiac arrhythmia: Comment: On metoprolol Code(s): I49.9 - Cardiac arrhythmia, unspecified Plan: Continue metoprolol Orders: Orders Urine Cytology Today E78.5 - Hyperlipidemia, unspecified, I10 - Essential (primary) hypertension, I25.10 - Atherosclerotic heart disease of [place] coronary artery without angina pectoris, I42.9 - Cardiomyopathy, unspecified Comprehensive [place]. Panel Fast 6 Months E78.5 - Hyperlipidemia, unspecified, I10 - Essential (primary) hypertension, I42.9 - Cardiomyopathy, unspecified, I49.9 - Cardiac arrhythmia, unspecified Lipid Panel 6 Months E78.5 - Hyperlipidemia, unspecified, I10 - Essential (primary) hypertension, I42.9 - Cardiomyopathy, unspecified, I49.9 - Cardiac arrhythmia, unspecified Comprehensive [place]. Panel Fast Today E78.5 - Hyperlipidemia, unspecified, I10 - Essential (primary) hypertension, I25.10 - Atherosclerotic heart disease of [place] coronary artery without angina pectoris, I42.9 - Cardiomyopathy, unspecified Complete Blood Count Auto Diff Today E78.5 - Hyperlipidemia, unspecified, I10 - Essential (primary) hypertension, I25.10 - Atherosclerotic heart disease of [place] coronary artery without angina pectoris, I42.9 - Cardiomyopathy, unspecified UA w Microscopic Today E78.5 - Hyperlipidemia, unspecified, I10 - Essential (primary) hypertension, I25.10 - Atherosclerotic heart disease of [place] coronary artery without angina pectoris, I42.9 - Cardiomyopathy, unspecified Lipid Panel Today E78.5 - Hyperlipidemia, unspecified, I10 - Essential (primary) hypertension, I25.10 - Atherosclerotic heart disease of [place] coronary artery without angina pectoris, I42.9 - Cardiomyopathy, unspecified Complete Blood Count Auto Diff 6 Months E78.5 - Hyperlipidemia, unspecified, I10 - Essential (primary) hypertension, I42.9 - Cardiomyopathy, unspecified, I49.9 - Cardiac arrhythmia, unspecified Quality Reporting (2019) Depression/Bipolar (159/160/161/177) PHQ-9: Total score: 0 Coding Level of Care Code Medicare Subsequent (G0439) Diagnoses CAD (coronary artery disease) I25.10 Cardiomyopathy I42.9 Microscopic hematuria R31.29 Annual physical exam Z00.00 Tobacco consumption Z72.0 Cardiac arrhythmia I49.9 CPT Codes Advance Care Planning - Advance Care Planning discussion: On file, no changes ([id number]) Advance Care Planning - Time spent: 1-15 minutes, on File ([id number]) Advance Care Planning Advance Care Planning discussion: On file, no changes Forms completed: Health Care Proxy Time spent: 1-15 minutes, on File Did not discuss due to Cultural/Spiritual beliefs: Yes
--- OUTSIDE RECORDS SUMMARY | 2024-04-07 13:46 | XMS_ITS | Encounter Summary ---
Author Organization [facility] Address [address] [place] [address] Care Team Providers Care Herd Tester Name Role Phone Ines Mcdowell MD Primary Care Provider [phone] Reason for Visit * Reason Comments Allergic Reaction Pt comes in with swe lling of the face since yesterday . Denies itchiness. Has not taken anything for it. Denies recent illness and denies use of lisinopril. Started taking sulfamethoxazole for UTI and hematuria 8 days ago . Airway patent, pt talking in complete sentences - denies any airway issues. Encounter Details Date Type Department Care Team (Late st Contact Info) Description 03/10/2024 7:29 AM EST - 03/10/2024 10:20 AM EST [facility] Emergency [address] [place] [address] Allergic reaction due to antibacterial drug (Primary Dx) Discharge Disposition: Home or Self Care Social History Tobacco Use Types Packs/Day Years Used Date Smoking Tobacco: Never Assessed Sex and Gender Information Value Date Recorded Sex Assigned at Not on file Gender Identity Not on file Sexual Orientation Not on file Job Start Date Occupation Industry Not on file Not on file Not on file documented as of this encounter Last Filed Vital Signs Vital Sign Reading Time Taken Comments Blood Pressure 115/68 03/10/2024 6:42 AM EST Pulse 87 03/10/2024 6:42 AM EST Temperature 37 ??C (98.6 ??F) 03/10/2024 3:34 AM EST Respiratory Rate 17 03/10/2024 6:42 AM EST Oxygen Saturation 99% 03/10/2024 6:42 AM EST Inhaled Oxygen Concentration - - Weight 79.4 kg (175 lb) 03/10/2024 3:34 AM EST Height 175.3 cm (5' 9 ) 03/10/2024 3:34 AM EST Body Mass Index 25.84 03/10/2024 3:34 AM EST documented in this encounter Discharge Instructions * Discharge Instructions* ARTEMIO Collins - 03/10/2024 9:31 AM EST Take the prednisone once daily, do not start until tomorrow. Take the Benadryl every 4-6 hours as needed. This may cause drowsiness. Discontinue the Bactrim. Urology follow-up as discussed. PCP follow-up as discussed for a recheck of your kidney function. Your creatinine today was 1.75. Increase fluid intake at home. Return to the ED for any worsening symptoms or concerns. documented in this encounter Medications at Time of Discharge Medication Sig Dispensed Refills Start Date End Date diphenhydrAMINE (BENADRYL) 25 mg capsule Take 1 capsule (25 mg total) by mouth every 4 (four) hours if needed for itching for up to 4 days. 16 capsule 03/10/2024 predniSONE (DELTASONE) 20 mg tablet Take 2 tablets (40 mg total) by mouth 1 (one) time each day for 2 days. Take with food in the morning 4 tablet 03/10/2024 03/12/2024 documented as of this encounter Ordered Prescriptions Prescription Sig Dispensed Refills Start Date End Da te diphenhydrAMINE (BENADRYL) 25 mg capsule Take 1 capsule (25 mg total) by mouth every 4 (four) hours if needed for itching for up to 4 days. 16 capsule 03/10/2024 predniSONE (DELTASONE) 20 mg tablet Take 2 tablets (40 mg total) by mouth 1 (one) time each day for 2 days. Take with food in the morning 4 tablet 03/10/2024 03/12/2024 documented in this encounter Discharge Disposition Disposition Code Departure Means Destination Comment s Home or Self Care documented in this encounter Progress Notes * Lorena Avila RN - 03/10/2024 3:30 AM EST Pt to ED for facial swelling that started yesterday morning. Denies itchiness of face or throat. Notongue swelling, airway patent, pt speaking in clear complete sentences. Denies new products, animal bites, or exposure to allergens. Reports he did start an antibiotic for a UTI 9 days ago. * ARTEMIO Collins - 03/10/2024 3:26 AM EST Emergency Medicine Note Patient Name: Zheng Juarez Initial Evaluation: 03/10/2024 : 1940 Patient's PCP: Ines Mcdowell MD Emergency Physician: ARTEMIO Collins History of Present Illness Chief Complaint: Chief Complaint Patient presents with Allergic Reaction Pt comes in with swelling of the face since yesterday . Denies itchiness. Has not taken anything for it. Denies recent illness and denies use of lisinopril. Started taking sulfamethoxazole for UTI and hematuria 8 days ago . Airway patent, pt talking in complete sentences - denies any airway issues. HPI: This is an 83-year-old male who states that he was recently treated for a UTI with Bactrim. He reports that yesterday he noticed some facial swelling. No associated rash or itching. No difficulty breathing, throat swelling, tongue swelling. Denies any new foods, soaps, lotions or DARIAN inhibitor medications. The only new thing is the Bactrim. He has 2 doses left. He states his urinary symptoms havesubsided since he started taking the Bactrim. He had hematuria which has resolved. He has follow-upwith his PCP in March. No associated chest pain, abdominal pain, nausea or vomiting. ROS: GENERAL: No fever, no chills, no acute distress OPHTHALMOLOGY: No vision changes, no redness, or discharge ENT: No sore throat , no nosebleed CARDIOVASCULAR: No chest pain, no peripheral edema RESPIRATORY: No dyspnea, no sputum production, and no cough MUSCULOSKELETAL: No myalgias, no back pain, and no neck pain. GI: No abdominal pain, no nausea, no vomiting, no diarrhea. No black stool, bright red blood per rectum, or constipation. GENITOURINARY: No dysuria, no urgency, no frequency NEUROLOGY: No paresthesias, no weakness, No headache PSYCHIATRIC: No depression, no suicidality, or intent of self-harm DERMATOLOGY: No rash no pruritus IMMUNOLOGY: No immunocompromise HEMATOLOGY: No bleeding, no bruising Previous History History reviewed. No pertinent past medical history. History reviewed. No pertinent surgical history. No family history on file. is allergic to iodinated contrast media. No current facility-administered medications on file prior to encounter. No current outpatient medications on file prior to encounter. Physical Exam ED Triage Vitals [03/10/24 0334] Temp Heart Rate Resp BP 37 ??C (98.6 ??F) 93 18 109/75 SpO2 Temp Source Heart Rate Source Patient Position 97 % Oral Radial Sitting BP Location FiO2 (%) Right arm -- General: Well-appearing, well nourished, in no acute distress HEENT: PERRL, EOMI, external ears and nose appear unremarkable, airway is patent. Mild edema noted to both of the cheeks and periorbital region. Uvula midline. No trismus. No work of breathing. Neck: Supple, full range of motion Chest: Clear to auscultation; no evidence of respiratory distress Circulatory: RRR, extremities well perfused Abdomen: Non-distended, Non-Tender Extremities: Normal ROM, No edema Skin: Warm and dry Neuro: Alert and oriented, no focal deficits Results Labs Reviewed COMPREHENSIVE METABOLIC PANEL - Abnormal Result Value Sodium 136 Potassium 4.4 Chloride 109 CO2 21 Anion Gap 6 Glucose 104 (*) BUN 29 (*) Creatinine 1.75 (*) eGFR 38 (*) BUN/Creatinine Ratio 16.6 Calcium 8.6 AST (SGOT) 18 ALT (SGPT) 21 Alkaline Phosphatase 67 Total Protein 7.2 Albumin 3.9 Total Bilirubin 0.3 CBC WITH AUTO DIFFERENTIAL - Abnormal WBC 6.7 RBC 4.30 (*) Hemoglobin 14.1 Hematocrit 42.4 MCV 98.4 (*) MCH 32.7 (*) MCHC 33.3 RDW 12.2 Platelets 222 MPV 10.0 NRBC 0.0 NRBC Absolute 0.00 Neutrophils Relative 62.2 Lymphocytes Relative 17.0 Monocytes Relative 10.4 Eosinophils Relative 10.0 Basophils Relative 0.1 Immature Granulocytes Relative 0.3 Neutrophils Absolute 4.17 Lymphocytes Absolute 1.14 Monocytes Absolute 0.70 Eosinophils Absolute 0.67 (*) Basophils Absolute 0.01 Immature Granulocytes Absolute 0.02 CBC AND DIFFERENTIAL Narrative: The following orders were created for panel order CBC and differential. Procedure Abnormality Status --------- ------ CBC auto differential[[id number]] Abnormal Final result Please view results for these tests on the individual orders. Abnormal Labs Reviewed COMPREHENSIVE METABOLIC PANEL - Abnormal; Notable for the following components: Result Value Glucose 104 (*) BUN 29 (*) Creatinine 1.75 (*) eGFR 38 (*) All other components within normal limits CBC WITH AUTO DIFFERENTIAL - Abnormal; Notable for the following components: RBC 4.30 (*) MCV 98.4 (*) MCH 32.7 (*) Eosinophils Absolute 0.67 (*) All other components within normal limits No orders to display I have discussed the incidental/abnormal imaging and/or lab abnormalities with the patient and haveinstructed them the need for further evaluation and workup with their primary care doctor. I have provided the patient with a paper copy of the abnormality. The laboratory results, imaging results and other diagnostic exam results were reviewed in the EMR. EKG Interpretation Critical Care Time None ? Medical Decision Making Medications methylPREDNISolone sodium succ (SOLU-Medrol) injection 125 mg (125 mg intravenous Given 03/10/24809) diphenhydrAMINE (BENADRYL) injection 25 mg (25 mg intravenous Given 03/10/24809) famotidine (PF) (PEPCID) injection 20 mg (20 mg intravenous Given 03/10/24809) sodium chloride 0.9 % bolus 500 mL (500 mL intravenous New Bag 03/10/24808) ED Course as of 03/10/24930Mar 10, 2024 09 Patient received Benadryl and prednisone. Tolerated it well. Discharged prednisone and Benadryl as well. Patient is aware to discontinue the Bactrim. He will follow-up with urology. Also help with his PCP in March for a recheck of his kidney function. Discharged in stable condition. [] ED Course User Index [] ARTEMIO Collins Clinical Impressions as of 03/10/24930 Allergic reaction due to antibacterial drug Differential to include allergic reaction to Bactrim, angioedema, contact dermatitis, cellulitis 7:54 AM. Patient well-appearing, afebrile, vital signs stable. No work of breathing, lungs are clear. Symptoms likely secondary to allergic reaction to Bactrim. Patient's creatinine is 1.7, this seems to be new according to the patient. Potentially related to Bactrim. Discussed with the patient. Given some IV fluids, Solu-Medrol, Pepcid and Benadryl. Will reevaluate. Procedures Procedures Diagnosis 1. Allergic reaction due to antibacterial drug Disposition Discharge ED Prescriptions Medication Sig Dispense Start Date End Date Auth. Provider predniSONE (DELTASONE) 20 mg tablet Take 2 tablets (40 mg total) by mouth 1 (one) time each day for2 days. Take with food in the morning 4 tablet 03/10/2024 03/12/2024 ARTEMIO Collins diphenhydrAMINE (BENADRYL) 25 mg capsule Take 1 capsule (25 mg total) by mouth every 4 (four) hoursif needed for itching for up to 4 days. 16 capsule 03/10/2024 03/14/2024 ARTEMIO Collins Physician Attestation ARTEMIO Collins 03/10/24 0754 ARTEMIO Collins 03/10/24 0931 documented in this encounter Plan of Treatment Not on file documented as of this encounter Procedures Procedure Name Priority Date/Time Associated Diagnosis Comments CBC WITH AUTO DIFFERENTIAL STAT 03/10/2024 3:39 AM EST CBC AND DIFFERENTIAL STAT 03/10/2024 3:39 AM EST COMPREHENSIVE METABOLIC PANEL STAT 03/10/2024 3:39 AM EST documented in this encounter Results * (ABNORMAL) CBC auto differential (03/10/2024 3:39 AM EST) WBC 6.7 4.8 - 10.8 K/mcL LAB HEMETOLOGY METHOD 03/10/2024 3:51 AM EST [facility] RBC 4.30(L) 4.50 - 5.50 M/mcL LAB HEMETOLOGY METHOD 03/10/2024 3:51 AM [facility] Hemoglobin 14.1 13.5 - 17.5 g/dL LAB HEMETOLOGY METHOD 03/10/2024 3:51 AM [facility] Hematocrit 42.4 42.0 - 54.0 % LAB HEMETOLOGY METHOD 03/10/2024 3:51 AM [facility] MCV 98.4(H) 79.0 - 98.0 FL LAB HEMETOLOGY METHOD 03/10/2024 3:51 AM [facility] MCH 32.7(H) 27.0 - 32.0 pcg LAB HEMETOLOGY METHOD 03/10/2024 3:51 AM [facility] MCHC 33.3 32.0 - 37.0 g/dL LAB HEMETOLOGY METHOD 03/10/2024 3:51 AM [facility] RDW 12.2 11.0 - 15.0 % LAB HEMETOLOGY METHOD 03/10/2024 3:51 AM [facility] Platelets 222 130 - 400 K/mcL LAB HEMETOLOGY METHOD 03/10/2024 3:51 AM [facility] MPV 10.0 7.0 - 11.0 FL LAB HEMETOLOGY METHOD 03/10/2024 3:51 AM [facility] NRBC 0.0 <1.0 % LAB HEMETOLOGY METHOD 03/10/2024 3:51 AM [facility] NRBC Absolute 0.00 <0.10 K/mcL LAB HEMETOLOGY METHOD 03/10/2024 3:51 AM [facility] Neutrophils Relative 62.2 % LAB HEMETOLOGY METHOD 03/10/2024 3:51 AM [facility] Lymphocytes Relative 17.0 % LAB HEMETOLOGY METHOD 03/10/2024 3:51 AM [facility] Monocytes Relative 10.4 % LAB HEMETOLOGY METHOD 03/10/2024 3:51 AM [facility] Eosinophils Relative 10.0 % LAB HEMETOLOGY METHOD 03/10/2024 3:51 AM [facility] Basophils Relative 0.1 % LAB HEMETOLOGY METHOD 03/10/2024 3:51 AM [facility] Immature Granulocytes Relative 0.3 % LAB HEMETOLOGY METHOD 03/10/2024 3:51 AM [facility] Neutrophils Absolute 4.17 1.50 - 7.00 K/mcL LAB HEMETOLOGY METHOD 03/10/2024 3:51 AM [facility] Lymphocytes Absolute 1.14 1.00 - 5.00 K/mcL LAB HEMETOLOGY METHOD 03/10/2024 3:51 AM [facility] Monocytes Absolute 0.70 0.20 - 1.00 K/mcL LAB HEMETOLOGY METHOD 03/10/2024 3:51 AM EST [facility] Eosinophils Absolute 0.67(H) 0.00 - 0.50 K/mcL LAB HEMETOLOGY METHOD 03/10/2024 3:51 AM [facility] Basophils Absolute 0.01 0.00 - 0.20 K/mcL LAB HEMETOLOGY METHOD 03/10/2024 3:51 AM [facility] Immature Granulocytes Absolute 0.02 0.00 - 0.03 K/mcL LAB HEMETOLOGY METHOD 03/10/2024 3:51 AM [facility] Blood Venous blood specimen / Unknown Venipuncture / Unknown 03/10/2024 3:39 AM EST 03/10/2024 3:46 AM EST Anshu Berrios MD LAB BLOOD ORDERABLES [facility] [address] [place] [address], * (ABNORMAL) Comprehensive metabolic panel (03/10/2024 3:39 AM EST) Sodium 136 133 - 145 mmol/L LAB CHEMISTRY METHOD 03/10/2024 5:16 AM [facility] Potassium 4.4 3.5 - 5.5 mmol/L LAB CHEMISTRY METHOD 03/10/2024 5:16 AM [facility] Chloride 109 96 - 110 mmol/L LAB CHEMISTRY METHOD 03/10/2024 5:16 AM [facility] CO2 21 21 - 32 mmol/L LAB CHEMISTRY METHOD 03/10/2024 5:16 AM [facility] Anion Gap 6 3 - 11 LAB CHEMISTRY METHOD 03/10/2024 5:16 AM [facility] Glucose 104(H) 70 - 100 mg/dL LAB CHEMISTRY METHOD 03/10/2024 5:16 AM [facility] BUN 29(H) 5 - 25 mg/dL LAB CHEMISTRY METHOD 03/10/2024 5:16 AM [facility] Creatinine 1.75(H) 0.70 - 1.30 mg/dL LAB CHEMISTRY METHOD 03/10/2024 5:16 AM [facility] eGFR 38(L) >=60 mL/min/1. 73m2 LAB CHEMISTRY METHOD 03/10/2024 5:16 AM [facility] Comment:Calculation based on the??Chronic Kidney Disease Epidemiology Collaboration (CKD-EPI) equation refit??without adjustment for race. BUN/Creatinine Ratio 16.6 LAB CHEMISTRY METHOD 03/10/2024 5:16 AM [facility] Calcium 8.6 8.5 - 10.5 mg/dL LAB CHEMISTRY METHOD 03/10/2024 5:16 AM [facility] AST (SGOT) 18 10 - 42 unit/L LAB CHEMISTRY METHOD 03/10/2024 5:16 AM [facility] ALT (SGPT) 21 10 - 60 unit/L LAB CHEMISTRY METHOD 03/10/2024 5:16 AM EST [facility] Alkaline Phosphatase 67 42 - 121 unit/L LAB CHEMISTRY METHOD 03/10/2024 5:16 AM EST [facility] Total Protein 7.2 6.0 - 8.0 g/dL LAB CHEMISTRY METHOD 03/10/2024 5:16 AM EST [facility] Albumin 3.9 3.2 - 5.0 g/dL LAB CHEMISTRY METHOD 03/10/2024 5:16 AM EST [facility] Total Bilirubin 0.3 0.0 - 1.4 mg/dL LAB CHEMISTRY METHOD 03/10/2024 5:16 AM EST [facility] Blood Venous blood specimen / Unknown Venipuncture / Unknown 03/10/2024 3:39 AM EST 03/10/2024 3:46 AM EST Scot Peyton Berrios MD LAB BLOOD ORDERABLES [facility] [address] [place] [address], documented in this encounter Visit Diagnoses Diagnosis Allergic reaction due to antibacterial drug- Primary documented in this encounter Administered Medications Inactive Administered Medications - up to 3 most recent administrations Medication Order MAR Action Action Date Dose Rate Site diphenhydrAMINE (BENADRYL) injection 25 mg 25 mg, intravenous, Once, On Sun03/10/24 at 0751, For 1 dose Given 03/10/2024 8:10 AM EST 25 mg famotidine (PF) (PEPCID) injection 20 mg 20 mg, intravenous, Administer over 2 Minutes, Once, On Sun03/10/24 at 0751, For 1 dose Given 03/10/2024 8:10 AM EST 20 mg methylPREDNISolone sodium succ (SOLU-Medrol) injection 125 mg 125 mg, intravenous, Once, On Sun03/10/24 at 0751, For 1 dose, Reconstitute each 125 mg vial with 2 mL sterile water for injection to a concentration of 62.5 mg/mL. Given 03/10/2024 8:10 AM EST 125 mg sodium chloride 0.9 % bolus 500 mL 500 mL, intravenous, at 1,000 mL/hr, Administer over 30 Minutes, Once, On Sun03/10/24 at 0751, For 1 dose New Bag 03/10/2024 8:09 AM EST 500 mL 10 00 mL/hr documented in this encounter Active and Recently Administered Medications Times are shown in EST. Scheduled Medication Order 03/08/2024 03/09/2024 03/10/2024 diphenhydrAMINE (BENADRYL) injection 25 mg (COMPLETED) 25 mg, intravenous, Once, On Sun03/10/24 at 0751, For 1 dose 0810 (Given - Provid er: Yeny Abdul RN) famotidine (PF) (PEPCID) injection 20 mg (COMPLETED) 20 mg, intravenous, Administer over 2 Minutes, Once, On Sun03/10/24 at 0751, For 1 dose 0810 (Given - Provid er: Yeny Abdul RN) methylPREDNISolone sodium succ (SOLU-Medrol) injection 125 mg (COMPLETED) 125 mg, intravenous, Once, On Sun03/10/24 at 0751, For 1 dose, Reconstitute each 125 mg vial with 2 mL sterile water for injection to a concentration of 62.5 mg/mL. 0810 (Given - Provid er: Yeny Abdul RN) sodium chloride 0.9 % bolus 500 mL (COMPLETED) 500 mL, intravenous, at 1,000 mL/hr, Administer over 30 Minutes, Once, On Sun03/10/24 at 0751, For 1 dose 0809 (New Bag - Prov ider: Yeny Abdul RN)0839 (Stopped - Provider: Yeny Abdul RN) documented in this encounter Care Teams Herd Tester Relationship Specialty Start Date End Date Ines Mcdowell MD [address] [place] [address] PCP - General Internal Medicine 03/10/24 documented as of this encounter
--- OUTSIDE RECORDS SUMMARY | 2024-04-07 13:46 | XMS_ITS | Clinical Summary ---
Author Organization [facility] Address [address] [place] [address] Phone Care Team Providers Care Biological Sciences Professor Name Role Phone Ines Mcdowell MD Primary Care Provider [phone] Allergies Active Allergy Reactions Criticality Noted Date Comments Iodinated Contrast Media Dizziness 03/10/2024 Medications Medication Sig Dispensed Refills Start Date End Date Status diphenhydrAMINE (BENADRYL) 25 mg capsule Take 1 capsule (25 mg total) by mouth every 4 (four) hours if needed for itching for up to 4 days. 16 capsule 03/10/2024 Active predniSONE (DELTASONE) 20 mg tablet Take 2 tablets (40 mg total) by mouth 1 (one) time each day for 2 days. Take with food in the morning 4 tablet 03/10/2024 03/12/2024 Active Problems No known active problems Encounters Date Type Department Care Team Description 03/10/2024 7:29 AM EST - 03/10/2024 10:20 AM EST Emergency [facility] Emergency [address] [place] [address] Allergic reaction due to antibacterial drug (Primary Dx) Discharge Disposition: Home or Self Care from Last 3 Months Social History Tobacco Use Types Packs/Day Years Used Date Smoking Tobacco: Never Assessed Sex and Gender Information Value Date Recorded Sex Assigned at Not on file Gender Identity Not on file Sexual Orientation Not on file Job Start Date Occupation Industry Not on file Not on file Not on file Obstetrics History Last Filed Vital Signs Vital Sign Reading [...] Mass Index 25.84 03/10/2024 3:34 AM EST Plan of Treatment Health Maintenance Due Date Last Done Comments DTaP,Tdap,and Td Vaccines (1 - Tdap) 10/02/1959 Zoster Vaccines (1 of 2) 1990 Pneumococcal Vaccine: 65+ Ye ars (1 of 1 - PCV) 2005 RSV Immunization Patients 60 + Years Old (1 - 1-dose 75+ series) 10/02/2015 COVID-19 Vaccine ( - 2023-2 5 season) 2023 Influenza Vaccine (#1) 2023 Cholesterol Screening (Lipid Panel) 03/10/2024 Depression Screening 03/10/2024 Falls Risk Assessment 03/10/2024 Medicare Annual Wellness Visit 03/10/2024 Social Influencers of Health Screening 03/10/2024 Hypertension/CHF/CAD Annual BMP Blood Test 03/10/2025 03/10/2024 HIB Vaccines Aged Out No longer eligi ble based on patient's age to complete this topic HPV Vaccines Aged Out No longer eligi ble based on patient's age to complete this topic Hepatitis A Vaccines Aged Out No long er eligible based on patient's age to complete this topic Hepatitis B Vaccines Aged Out No long er eligible based on patient's age to complete this topic IPV Vaccines Aged Out No longer eligi ble based on patient's age to complete this topic MMR Vaccines Aged Out No longer eligi ble based on patient's age to complete this topic Meningococcal ACWY Vaccine Aged Out N o longer eligible based on patient's age to complete this topic RSV Immunization Patients Un vito 20 months Aged Out No longer eligible b ased on patient's age to complete this topic Varicella Vaccines Aged Out No longer eligible based on patient's age to complete this topic Procedures Procedure Name Priority Date/Time Associated Diagnosis Comments CBC WITH AUTO DIFFERENTIAL STAT 03/10/2024 3:39 AM EST COMPREHENSIVE METABOLIC PANEL STAT 03/10/2024 3:39 AM EST CBC AND DIFFERENTIAL STAT 03/10/2024 3:39 AM EST from Last 3 Months Results * (ABNORMAL) CBC auto differential (03/10/2024 3:39 AM EST) [facility] WBC 6.7 4.8 - 10.8 K/mcL LAB HEMETOLOGY METHOD 03/10/2024 3:51 AM [facility] RBC 4.30(L) 4.50 - 5.50 M/mcL LAB HEMETOLOGY METHOD 03/10/2024 3:51 AM [facility] Hemoglobin 14.1 13.5 - 17.5 g/dL LAB HEMETOLOGY METHOD 03/10/2024 3:51 AM [facility] Hematocrit 42.4 42.0 - 54.0 % LAB HEMETOLOGY METHOD 03/10/2024 3:51 AM [facility] MCV 98.4(H) 79.0 - 98.0 FL LAB HEMETOLOGY METHOD 03/10/2024 3:51 AM [facility] MCH 32.7(H) 27.0 - 32.0 pcg LAB HEMETOLOGY METHOD 03/10/2024 3:51 AM [facility] MCHC 33.3 32.0 - 37.0 g/dL LAB HEMETOLOGY METHOD 03/10/2024 3:51 AM [facility] RDW 12.2 11.0 - 15.0 % LAB HEMETOLOGY METHOD 03/10/2024 3:51 AM [facility] Platelets 222 130 - 400 K/mcL LAB HEMETOLOGY METHOD 03/10/2024 3:51 AM [facility] MPV 10.0 7.0 - 11.0 FL LAB HEMETOLOGY METHOD 03/10/2024 3:51 AM [facility] NRBC 0.0 <1.0 % LAB HEMETOLOGY METHOD 03/10/2024 3:51 AM [facility] NRBC Absolute 0.00 <0.10 K/mcL LAB HEMETOLOGY METHOD 03/10/2024 3:51 AM [facility] Neutrophils Relative 62.2 % LAB HEMETOLOGY METHOD 03/10/2024 3:51 AM [facility] Lymphocytes Relative 17.0 % LAB HEMETOLOGY METHOD 03/10/2024 3:51 AM [facility] Monocytes Relative 10.4 % LAB HEMETOLOGY METHOD 03/10/2024 3:51 AM [facility] Eosinophils Relative 10.0 % LAB HEMETOLOGY METHOD 03/10/2024 3:51 AM [facility] Basophils Relative 0.1 % LAB HEMETOLOGY METHOD 03/10/2024 3:51 AM [facility] Immature Granulocytes Relative 0.3 % LAB HEMETOLOGY METHOD 03/10/2024 3:51 AM [facility] Neutrophils Absolute 4.17 1.50 - 7.00 K/mcL LAB HEMETOLOGY METHOD 03/10/2024 3:51 AM [facility] Lymphocytes Absolute 1.14 1.00 - 5.00 K/mcL LAB HEMETOLOGY METHOD 03/10/2024 3:51 AM [facility] Monocytes Absolute 0.70 0.20 - 1.00 K/mcL LAB HEMETOLOGY METHOD 03/10/2024 3:51 AM [facility] Eosinophils Absolute 0.67(H) 0.00 - 0.50 K/mcL LAB HEMETOLOGY METHOD 03/10/2024 3:51 AM [facility] Basophils Absolute 0.01 0.00 - 0.20 K/mcL LAB HEMETOLOGY METHOD 03/10/2024 3:51 AM EST [facility] Immature Granulocytes Absolute 0.02 0.00 - 0.03 K/mcL LAB HEMETOLOGY METHOD 03/10/2024 3:51 AM [facility] Blood Venous blood specimen / Unknown Venipuncture / Unknown 03/10/2024 3:39 AM EST 03/10/2024 3:46 AM EST Anshu Berrios MD LAB BLOOD ORDERABLES [facility] [address] [place] [address], * (ABNORMAL) Comprehensive metabolic panel (03/10/2024 3:39 AM EST) Sodium 136 133 - 145 mmol/L LAB CHEMISTRY METHOD 03/10/2024 5:16 AM [facility] Potassium 4.4 3.5 - 5.5 mmol/L LAB CHEMISTRY METHOD 03/10/2024 5:16 AM [facility] Chloride 109 96 - 110 mmol/L LAB CHEMISTRY METHOD 03/10/2024 5:16 AM [facility] CO2 21 21 - 32 mmol/L LAB CHEMISTRY METHOD 03/10/2024 5:16 AM [facility] Anion Gap 6 3 - 11 LAB CHEMISTRY METHOD 03/10/2024 5:16 AM [facility] Glucose 104(H) 70 - 100 mg/dL LAB CHEMISTRY METHOD 03/10/2024 5:16 AM [facility] BUN 29(H) 5 - 25 mg/dL LAB CHEMISTRY METHOD 03/10/2024 5:16 AM [facility] Creatinine 1.75(H) 0.70 - 1.30 mg/dL LAB CHEMISTRY METHOD 03/10/2024 5:16 AM [facility] eGFR 38(L) >=60 mL/min/1. 73m2 LAB CHEMISTRY METHOD 03/10/2024 5:16 AM [facility] Comment:Calculation based on the??Chronic Kidney Disease Epidemiology Collaboration (CKD-EPI) equation refit??without adjustment for race. BUN/Creatinine Ratio 16.6 LAB CHEMISTRY METHOD 03/10/2024 5:16 AM [facility] Calcium 8.6 8.5 - 10.5 mg/dL LAB CHEMISTRY METHOD 03/10/2024 5:16 AM [facility] AST (SGOT) 18 10 - 42 unit/L LAB CHEMISTRY METHOD 03/10/2024 5:16 AM [facility] ALT (SGPT) 21 10 - 60 unit/L LAB CHEMISTRY METHOD 03/10/2024 5:16 AM [facility] Alkaline Phosphatase 67 42 - 121 unit/L LAB CHEMISTRY METHOD 03/10/2024 5:16 AM [facility] Total Protein 7.2 6.0 - 8.0 g/dL LAB CHEMISTRY METHOD 03/10/2024 5:16 AM [facility] Albumin 3.9 3.2 - 5.0 g/dL LAB CHEMISTRY METHOD 03/10/2024 5:16 AM [facility] Total Bilirubin 0.3 0.0 - 1.4 mg/dL LAB CHEMISTRY METHOD 03/10/2024 5:16 AM [facility] Blood Venous blood specimen / Unknown Venipuncture / Unknown 03/10/2024 3:39 AM EST 03/10/2024 3:46 AM EST Anshu Berrios MD LAB BLOOD ORDERABLES [facility] [address] [place] [address], from Last 3 Months Care Teams Biological Sciences Professor Relationship Specialty Start Date End Date Ines Mcdowell MD [address] [place] [address] PCP - General Internal Medicine 03/10/24
== END 2024-04-07 10:05 | disposition home or self-care (01) ==
PROVIDERS: PCP Internal Medicine; Visit Provider Internal Medicine
DX: Z00.00 Encounter for general adult medical examination without abnormal findings (principal); I42.9 Cardiomyopathy, unspecified; I25.10 Atherosclerotic heart disease of native coronary artery without angina pectoris; R31.29 Other microscopic hematuria; Z72.0 Tobacco use; I49.9 Cardiac arrhythmia, unspecified

== ENCOUNTER → 2024-04-07 09:25 | Outpatient (BNVA) | payer MEDICARE, SELFPAY | PROVIDERS: PCP Internal Medicine; Visit Provider Internal Medicine ==

== ENCOUNTER 2024-04-15 06:31 | Outpatient (REF) | payer MEDICARE, SELFPAY ==
[2024-04-15 10:13] LABS: Urine Cytology See Pathology rpt
[2024-04-15 10:19] LABS: Appearance Urine Clear; Color Urine Yellow; Glucose Urine UA Negative (Negative); Leukocyte Esterase Urine Small (1+) (Negative); Nitrite Urine Negative (Negative); UMIC TRIGGER UA YES; Urine Blood Moderate (2+) (Negative); Urine Ketones Negative (Negative); Urine Protein Negative (Neg-Trace)
[2024-04-15 10:23] LABS: MANUAL DIFF FLAG NO
[2024-04-15 10:29] LABS: Bacteria Urine None Seen (None Seen); Hyaline Casts Urine 0-2 /LPF (0-2); Squamous Epithelial Cell Urine 0-2 /HPF (0-2)
[2024-04-15 10:55] LABS: Basophils Absolute Auto 0.1 X10*3/uL (0.0-0.2); Basophils Percent Auto 0.7 % (0-2); Eosinophils Absolute Auto 0.4 X10*3/uL (0.0-0.4); Eosinophils Percent Auto 5.4 % (0-4); Hematocrit 41.6 % (42.0-52.0); Hemoglobin 13.8 g/dl (14.0-18.0); Imm Gran Abs Auto 0.04 X10*3/uL (0.00-0.03); Imm Gran Pct Auto 0.6 % (0.0-0.4); Lymphocytes Absolute Auto 1.8 X10*3/uL (1.2-4.9); Lymphocytes Percent Auto 26.6 % (20-40); Mean Corpuscular HGB Conc 33.2 g/dl (31.0-36.0); Mean Corpuscular Hemoglobin 32.7 pg (27.0-33.0); Mean Corpuscular Volume 98.6 fL (80.0-98.0); Monocytes Absolute Auto 0.6 X10*3/uL (0.1-1.2); Monocytes Percent Auto 8.6 % (2-11); Neutrophils Percent Auto 58.1 % (45-73); Platelet Count 242 X10*3/uL (160-400); Red Blood Count 4.22 X10*6/uL (4.60-5.80); Red Cell Distribution Width 12.7 % (11.0-16.0); White Blood Count 6.9 X10*3/uL (4.8-10.8)
[2024-04-15 11:08] LABS: Alanine Aminotransferase 12 U/L (0-40); Albumin Level 3.9 g/dL (3.5-5.0); Alkaline Phosphatase 50 U/L (39-117); Anion Gap 16 (12-20); Aspartate Amino Transferase 19 U/L (5-37); Bilirubin Total 0.5 mg/dL (0.0-1.0); Blood Urea Nitrogen 19 mg/dL (9-16); Carbon Dioxide 24 mmol/L (22-29); Chloride 108 mmol/L (96-108); Cholesterol 138 mg/dL (<200); Estimated Glomerular Filt Rate 55; Glucose Fasting 89 mg/dL (60-99); HDL Cholesterol 47 mg/dL (>40); LDL Cholesterol Calculated 72 mg/dL (<100); Potassium 4.6 mmol/L (3.3-5.1); Sodium 143 mmol/L (135-145); Triglycerides 97 mg/dL (<150)
[2024-04-15 11:17] LABS: PSA,Total (Free>4and<10) 1.16 ng/mL (0.00-4.00)
== END 2024-04-15 06:32 | disposition home or self-care (01) ==
LOC: HO.HMGCLDS 06:31
PROVIDERS: PCP Internal Medicine; Visit Provider Internal Medicine
DX: Z00.00 Encounter for general adult medical examination without abnormal findings (principal); I10 Essential (primary) hypertension; E78.5 Hyperlipidemia, unspecified; I25.10 Atherosclerotic heart disease of native coronary artery without angina pectoris; I42.9 Cardiomyopathy, unspecified; Z12.5 Encounter for screening for malignant neoplasm of prostate
CPT/HCPCS: 36415; 80053; 80061; 81001; 84153; 85025; 88112

== ENCOUNTER 2024-05-05 15:37 | Outpatient (REF) | payer MEDICARE, SELFPAY ==
--- NOTE | ~2024-05-05 | CT_ITS ---
CLINICAL HISTORY: R31.9 - Hematuria, unspecified CT abdomen and pelvis with and without IV contrast. COMPARISON: None FINDINGS: Minimal atelectasis along the lung bases. Moderate hiatal hernia. No focal hepatic lesion. Normal gallbladder. Normal spleen. Normal pancreas. Normal adrenal glands. Duodenal diverticulum present along the 2nd portion. No surrounding inflammatory changes. No right-sided hydronephrosis or hydroureter. Nonenhancing hepatic lesion along the inferior pole of the right kidney with Hounsfield units of 51 measuring (series 5, image 174 and series coronal/6, image 53). Right renal parapelvic cyst measuring 1.6 x 1.1 cm. No right renal or ureteral calculus. No left-sided hydronephrosis or hydroureter. No left renal or ureteral calculus. Normal appendix. Mild moderate colonic stool burden. No bowel obstruction. Moderate distal colonic diverticulosis without evidence of diverticulitis. There is diffuse thickening of the mucosa of the proximal sigmoid colon, likely representing diverticulosis coli. No mesenteric or retroperitoneal lymphadenopathy. Moderate aortoiliac atherosclerotic vascular calcifications. Evaluation of the pelvis is mildly limited secondary to left total hip arthroplasty. Mild diffuse thickening of the mucosa of the urinary bladder. Focal nodular/masslike thickening of the mucosa of the urinary bladder along the superior aspect measuring 1.0 x 0.8 cm (series coronal/10, image 52). Prostate calcifications present. Prostate is enlarged measuring up to 5.2 cm. Partially visualized left hip arthroplasty. Advanced degenerative changes of the right hip with [id number] apposition and prominent subchondral cysts within the femoral head and acetabulum. Visualized bones of the pelvis appear intact. Grade 1 anterolisthesis of L5 on S1, degenerative. Bone island present within the L2 vertebral body. [id number] spondylosis. IMPRESSION: 1. Focal nodular/masslike thickening along the superior aspect of the urinary bladder measuring 1.0 x 0.8 cm. Recommend direct visualization. 2. No evidence of renal obstruction. No renal or ureteral calculus bilaterally. 3. Nonenhancing lesion along the inferior pole of the right kidney measuring up to 0.7 cm 0.7 cm, likely representing a proteinaceous cyst. 4. Colonic diverticulosis without evidence of diverticulitis. Diffuse thickening of the mucosa of the sigmoid colon likely secondary to diverticulosis coli. 5. Prostatomegaly. This document has been electronically signed by: Oscar Pompa MD on 05/05/2024 17:08:09
[2024-05-05] MEDS: iohexoL 350 MG/ML 75 ML INFUS..BTL 85 ML IV (16:27)
--- OUTSIDE RECORDS SUMMARY | 2024-05-05 17:54 | XMS_ITS | Clinical Summary ---
Author Organization [facility] Address [address] [place] [address] Phone Care Team Providers Care Records Management Clerk Name Role Phone Ines Mcdowell MD Primary Care Provider [phone] Allergies Active Allergy Reactions Criticality Noted Date Comments Iodinated Contrast Media Dizziness 03/10/2024 Medications diphenhydrAMINE (BENADRYL) 25 mg capsule Take 1 capsule (25 mg total) by mouth every 4 (four) hours if needed for itching for up to 4 days. 16 capsule 03/10/2024 Active Active Problems No known active problems Encounters Date Type Department Care Team Description 03/10/2024 7:29 AM EST - 03/10/2024 10:20 AM EST Emergency [facility] Emergency [address] [place] [address] Allergic reaction due to antibacterial drug (Primary Dx) Discharge Disposition: Home or Self Care from Last 3 Months Social History Tobacco Use Types Packs/Day Years Used Date Smoking Tobacco: Never Assessed Sex and Gender Information Value Date Recorded Sex Assigned at Not on file Legal Sex Male 3:26 AM EST Gender Identity Not on file Sexual Orientation Not on file Obstetrics History Last Filed [...] DTaP,Tdap,and Td Vaccines (1 - Tdap) 10/02/1959 Pneumococcal Vaccine: 50+ Ye ars (1 of 1 - PCV) 1990 Zoster Vaccines (1 of 2) 1990 RSV Immunization Patients 60 + Years Old (1 - 1-dose 75+ series) 10/02/2015 COVID-19 Vaccine (1 - 2023-2 5 season) 2023 Influenza Vaccine [...] patient's age to complete this topic Meningococcal B Vacine Aged Out No lo nger eligible based on patient's age to complete [...] CBC auto differential (03/10/2024 3:39 AM EST) [facility] WBC 6.7 4.8 - 10.8 K/mcL LAB HEMETOLOGY METHOD 03/10/2024 3:[address] [facility] RBC 4.30(L) 4.50 - 5.50 M/mcL LAB HEMETOLOGY METHOD 03/10/2024 3:[address] [facility] Hemoglobin 14.1 13.5 - 17.5 g/dL LAB HEMETOLOGY METHOD 03/10/2024 3:[address] [facility] Hematocrit 42.4 42.0 - 54.0 % LAB HEMETOLOGY METHOD 03/10/2024 3:[address] [facility] MCV 98.4(H) 79.0 - 98.0 FL LAB HEMETOLOGY METHOD 03/10/2024 3:[address] [facility] MCH 32.7(H) 27.0 - 32.0 pcg LAB HEMETOLOGY METHOD 03/10/2024 3:[address] [facility] MCHC 33.3 32.0 - 37.0 g/dL LAB HEMETOLOGY METHOD 03/10/2024 3:[address] [facility] RDW 12.2 11.0 - 15.0 % LAB HEMETOLOGY METHOD 03/10/2024 3:[address] [facility] Platelets 222 130 - 400 K/mcL LAB HEMETOLOGY METHOD 03/10/2024 3:[address] [facility] MPV 10.0 7.0 - 11.0 FL LAB HEMETOLOGY METHOD 03/10/2024 3:[address] [facility] NRBC 0.0 <1.0 % LAB HEMETOLOGY METHOD 03/10/2024 3:[address] [facility] NRBC Absolute 0.00 <0.10 K/mcL LAB HEMETOLOGY METHOD 03/10/2024 3:[address] [facility] Neutrophils Relative 62.2 % LAB HEMETOLOGY METHOD 03/10/2024 3:[address] [facility] Lymphocytes Relative 17.0 % LAB HEMETOLOGY METHOD 03/10/2024 3:[address] [facility] Monocytes Relative 10.4 % LAB HEMETOLOGY METHOD 03/10/2024 3:[address] [facility] Eosinophils Relative 10.0 % LAB HEMETOLOGY METHOD 03/10/2024 3:[address] [facility] Basophils Relative 0.1 % LAB HEMETOLOGY METHOD 03/10/2024 3:[address] [facility] Immature Granulocytes Relative 0.3 % LAB HEMETOLOGY METHOD 03/10/2024 3:[address] [facility] Neutrophils Absolute 4.17 1.50 - 7.00 K/mcL LAB HEMETOLOGY METHOD 03/10/2024 3:[address] [facility] Lymphocytes Absolute 1.14 1.00 - 5.00 K/mcL LAB HEMETOLOGY METHOD 03/10/2024 3:[address] [facility] Monocytes Absolute 0.70 0.20 - 1.00 K/mcL LAB HEMETOLOGY METHOD 03/10/2024 3:[address] [facility] Eosinophils Absolute 0.67(H) 0.00 - 0.50 K/mcL LAB HEMETOLOGY METHOD 03/10/2024 3:[address] [facility] Basophils Absolute 0.01 0.00 - 0.20 K/mcL LAB HEMETOLOGY METHOD 03/10/2024 3:[address] [facility] Immature Granulocytes Absolute 0.02 0.00 - 0.03 K/mcL LAB HEMETOLOGY METHOD 03/10/2024 3:51 AM EST [facility] Blood Venous blood specimen / Unknown Venipuncture / Unknown 03/10/2024 3:39 AM EST 03/10/2024 3:46 AM EST us Anshu Berrios MD LAB BLOOD ORDERABLES Final Resu lt [facility] [address] [place] [address], [place] [phone] * (ABNORMAL) Comprehensive metabolic panel (03/10/2024 3:39 AM EST) Sodium 136 133 - 145 mmol/L LAB CHEMISTRY METHOD 03/10/2024 5:[address] [facility] Potassium 4.4 3.5 - 5.5 mmol/L LAB CHEMISTRY METHOD 03/10/2024 5:[address] [facility] Chloride 109 96 - 110 mmol/L LAB CHEMISTRY METHOD 03/10/2024 5:[address] [facility] CO2 21 21 - 32 mmol/L LAB CHEMISTRY METHOD 03/10/2024 5:[address] [facility] Anion Gap 6 3 - 11 LAB CHEMISTRY METHOD 03/10/2024 5:[address] [facility] Glucose 104(H) 70 - 100 mg/dL LAB CHEMISTRY METHOD 03/10/2024 5:[address] [facility] BUN 29(H) 5 - 25 mg/dL LAB CHEMISTRY METHOD 03/10/2024 5:[address] [facility] Creatinine 1.75(H) 0.70 - 1.30 mg/dL LAB CHEMISTRY METHOD 03/10/2024 5:[address] [facility] eGFR 38(L) >=60 mL/min/1. 73m2 LAB CHEMISTRY METHOD 03/10/2024 5:[address] [facility] Comment:Calculation based on the??Chronic Kidney Disease Epidemiology Collaboration (CKD-EPI) equation refit??without adjustment for race. BUN/Creatinine Ratio 16.6 LAB CHEMISTRY METHOD 03/10/2024 5:[address] [facility] Calcium 8.6 8.5 - 10.5 mg/dL LAB CHEMISTRY METHOD 03/10/2024 5:[address] [facility] AST (SGOT) 18 10 - 42 unit/L LAB CHEMISTRY METHOD 03/10/2024 5:[address] [facility] ALT (SGPT) 21 10 - 60 unit/L LAB CHEMISTRY METHOD 03/10/2024 5:[address] [facility] Alkaline Phosphatase 67 42 - 121 unit/L LAB CHEMISTRY METHOD 03/10/2024 5:[address] [facility] Total Protein 7.2 6.0 - 8.0 g/dL LAB CHEMISTRY METHOD 03/10/2024 5:[address] [facility] Albumin 3.9 3.2 - 5.0 g/dL LAB CHEMISTRY METHOD 03/10/2024 5:[address] [facility] Total Bilirubin 0.3 0.0 - 1.4 mg/dL LAB CHEMISTRY METHOD 03/10/2024 5:[address] [facility] Blood Venous blood specimen / Unknown Venipuncture / Unknown 03/10/2024 3:39 AM EST 03/10/2024 3:46 AM EST us Anshu Berrios MD LAB BLOOD ORDERABLES Final Resu lt [facility] [address] [place] [address], from Last 3 Months Insurance MEDICARE [employer] - [place] MEDICARE [place]AGE Care Teams Records Management Clerk Relationship Specialty Start Date End Date Ines Mcdowell MD PCP - General Internal Medicine 03/10/24
== END 2024-05-05 15:38 | disposition home or self-care (01) ==
LOC: HO.CT 15:37
PROVIDERS: PCP Internal Medicine; Visit Provider Internal Medicine
DX: R31.9 Hematuria, unspecified (principal)
CPT/HCPCS: 74178; Q9967

== ENCOUNTER → 2024-05-05 15:45 | Outpatient (BNV) | payer MEDICARE, SELFPAY | PROVIDERS: PCP Internal Medicine; Visit Provider Radiology Diagnostic Radiology | DX: R31.9 Hematuria, unspecified (principal) | CPT/HCPCS: 74178 ==

== ENCOUNTER 2024-05-12 13:47 | Outpatient (AMB) | payer MEDICARE, SELFPAY ==
--- NOTE | 2024-05-12 13:51 | A.OFFVIS_ITS ---
Intake Visit Reasons: Hematuria Intake Note: New patient presents today for initial visit for hematuria Urology Medication:none Blood Thinner: Aspirin Antibiotic Allergies: Allergies sulfamethoxazole [From Bactrim] Adverse Reaction (Intermediate, Verified 05/12/24 14:28) face swelling trimethoprim [From Bactrim] Adverse Reaction (Intermediate, Verified 05/12/24 14:28) face swelling regadenoson [From Lexiscan] Adverse Reaction (Verified 05/12/24 14:28) hypotensive Medication List - Last Reconciled 05/12/24 by LUDIN Victor-KAREEN amoxicillin 2,000 mg (4 x 500 mg) PO ONCE 1 day aspirin (Adult Low Dose Aspirin) 81 mg PO DAILY coenzyme Q10 (CoQ-10) 100 mg PO DAILY glucosamine-chondroitin 250-200 mg (Osteo Bi-Flex) 2 tabs PO TID latanoprost 0.005% drps ophthalmic (eye) lovastatin 40 mg PO DAILY metoprolol succinate ER 50 mg PO DAILY sacubitril-valsartan 49-51 mg (Entresto) 1 tab PO BID HPI Comments Details: Zheng is a very pleasant 83-year-old male patient of Dr. Mcdowell. He has a past medical history of coronary artery disease, cataracts, tobacco consumption smokes cigars daily, hyperlipidemia, and hypertension. In discussion with the patient today he reports having followed up with his PCP for back pain he had been experiencing at which time a CT was ordered and recommendations were made for urology referral for further assessment maxwell allen. CT 05/06 notes focal nodular masslike thickening along the superior aspect of the urinary bladder measuring 1.0 cm. Recommend with direct visualization. No evidence of renal obstruction, no renal or ureteral calculus noted bilaterally. Nonenhancing lesion along the inferior pole of the right kidney measuring 0.7 cm likely representing a proteinaceous cyst. Prostatomegaly. In review of patient's chart it appears urine cytologies: 10/30 Negative for high-grade urothelial carcinoma, 03/04 Atypical urothelial cells, 05/06 Negative for high-grade urothelial carcinoma. He does report a longstanding history of cigar smoking over 65 years. However quit last week after results of CT. He does report an episode of gross hematuria a few years ago however does not recall how long ago this was. He reports this was an isolated incident and has not experienced any gross/visible hematuria. He currently denies any bothersome urinary issues. In office urinalysis results reviewed with the patient today microscopic hematuria noted. He denies urinary urgency, urinary frequency, incontinence, nocturia, dysuria, foul smelling urine, changes to urinary stream, flank pain, fever, and or chills. He is happy with his current voiding parameters. He does however continue to report right-sided low-back pain. We discussed at length further assessment evaluation with in office cystoscopy. He is agreeable. All questions were answered. He otherwise offers no other issues or concerns at this time. In review of patient's chart it appears PSA 05/06 1.2 PFSH Medical History CAD (coronary artery disease) Annual physical exam Cataract UTI (urinary tract infection) Tobacco consumption Hyperlipidemia HTN (hypertension) Surgical History Hx of hernia repair H/O colonoscopy No pertinent past surgical history Family History Father Stomach cancer Mother No problems noted. Social History Housing: House Alcohol intake: never Patient Tobacco Use Status: Current someday Tobacco user Tobacco use type: Cigar e-Cigarette/Vaping Use: Never Used service: Yes Current occupational status: retired Cognitive needs: No Hearing needs: No Vision needs: Yes Review of Systems Const All systems reviewed & are unremarkable except as noted in HPI and below Physical Exam Const General: cooperative, healthy appearing, comfortable, no acute distress, well developed, alert and awake Orientation/consciousness: patient oriented x3 Limitations: no limitations HEENT Head: Yes normal to inspection, Yes normocephalic and Yes atraumatic Ears: hearing grossly normal bilaterally Eyes General: appearance normal, both eyes and all related structures Neck Neck: Yes normal visual inspection and Yes trachea midline Chest Chest palpation & inspection: normal inspection of the chest Resp Effort & Inspection: normal respiratory effort and able to speak in complete sentences Cardio Rate: regular rate GI Inspection: Yes normal to inspection General: Yes no CVA tenderness Penis: uncircumcised Back/Spine/Pelvis Back: no CVA tenderness Skin General skin exam: no rashes or lesions noted Neuro General: patient oriented x3 Extrem General: Yes normal to inspection Psych Appearance: grossly normal and well kempt Mental Status: mental status grossly normal Speech and movement: Normal speech and movement present and Clear speech present Affect: normal affect Attitude: cooperative Thought process: Normal thought process present Thought content: Normal thought content present Insight: Fair insight present (Psych) Judgement: Fair judgement present (Psych) Results AMB Urinalysis, Automated UA Leukoctes 0 Pee/uL Last Edit by Hien Heath on 05/12/24 14:14 UA Nitrite Negative Last Edit by Hien Heath on 05/12/24 14:14 UA Urobilinogen 3.5 mg/dL Last Edit by Hien Heath on 05/12/24 14:14 UA Protein 0.3 mg/dL Last Edit by Hien Heath on 05/12/24 14:14 UA pH 5.5 Last Edit by Hien Heath on 05/12/24 14:14 UA Blood 10 Mike/uL Last Edit by Hien Heath on 05/12/24 14:14 UA Specific [place] 1.030 Last Edit by Hien Heath on 05/12/24 14:14 UA Ketone Positive Last Edit by Hien Heath on 05/12/24 14:14 UA Bilirubin 17 mg/dL Last Edit by Hien Heath on 05/12/24 14:14 UA Glucose 0 mg/dL Last Edit by Hien Heath on 05/12/24 14:14 Results Reviewed Results Reviewed: Laboratory Last Values Urine pH (Auto) 5.5 05/12/24 14:10 Specific [place] (Auto) 1.030 05/12/24 14:10 Urine Protein (Auto) 0.3 mg/dL 05/12/24 14:10 Glucose (UA)(Auto) 0 mg/dL 05/12/24 14:10 Urine Ketones (Auto) Positive 05/12/24 14:10 Urine Blood (Auto) 10 Mike/uL 05/12/24 14:10 Urine Nitrite (Auto) Negative 05/12/24 14:10 Urine Bilirubin (Auto) 17 mg/dL 05/12/24 14:10 Urine Urobilinogen (Auto) 3.5 mg/dL 05/12/24 14:10 Leukocyte Esterase (Auto) 0 Pee/uL 05/12/24 14:10 Date of Service: 05/05/24 CT abdomen and pelvis with and without IV contrast. COMPARISON: None FINDINGS: Minimal atelectasis along the lung bases. Moderate hiatal hernia. No focal hepatic lesion. Normal gallbladder. Normal spleen. Normal pancreas. Normal adrenal glands. Duodenal diverticulum present along the 2nd portion. No surrounding inflammatory changes. No right-sided hydronephrosis or hydroureter. Nonenhancing hepatic lesion along the inferior pole of the right kidney with Hounsfield units of 51 measuring (series 5, image 174 and series coronal/6, image 53). Right renal parapelvic cyst measuring 1.6 x 1.1 cm. No right renal or ureteral calculus. No left-sided hydronephrosis or hydroureter. No left renal or ureteral calculus. Normal appendix. Mild moderate colonic stool burden. No bowel obstruction. Moderate distal colonic diverticulosis without evidence of diverticulitis. There is diffuse thickening of the mucosa of the proximal sigmoid colon, likely representing diverticulosis coli. No mesenteric or retroperitoneal lymphadenopathy. Moderate aortoiliac atherosclerotic vascular calcifications. Evaluation of the pelvis is mildly limited secondary to left total hip arthroplasty. Mild diffuse thickening of the mucosa of the urinary bladder. Focal nodular/masslike thickening of the mucosa of the urinary bladder along the superior aspect measuring 1.0 x 0.8 cm (series coronal/10, image 52). Prostate calcifications present. Prostate is enlarged measuring up to 5.2 cm. Partially visualized left hip arthroplasty. Advanced degenerative changes of the right hip with [id number] apposition and prominent subchondral cysts within the femoral head and acetabulum. Visualized bones of the pelvis appear intact. Grade 1 anterolisthesis of L5 on S1, degenerative. Bone island present within the L2 vertebral body. [id number] spondylosis. IMPRESSION: 1. Focal nodular/masslike thickening along the superior aspect of the urinary bladder measuring 1.0 x 0.8 cm. Recommend direct visualization. 2. No evidence of renal obstruction. No renal or ureteral calculus bilaterally. 3. Nonenhancing lesion along the inferior pole of the right kidney measuring up to 0.7 cm 0.7 cm, likely representing a proteinaceous cyst. 4. Colonic diverticulosis without evidence of diverticulitis. Diffuse thickening of the mucosa of the sigmoid colon likely secondary to diverticulosis coli. 5. Prostatomegaly. Assessment & Plan Assessment & Plan (1) Bladder mass: Code(s): N32.89 - Other specified disorders of bladder Category: Medical (2) Microscopic hematuria: Comment: smoker, Pt will have CT urogram 04/2023 and was referred to urology Code(s): R31.29 - Other microscopic hematuria Category: Medical (3) Abnormal cytology: Code(s): R89.6 - Abnormal cytological findings in specimens from other organs, systems and tissues Category: Medical (4) Enlarged prostate: Code(s): N40.0 - Benign prostatic hyperplasia without lower urinary tract symptoms Category: Medical (5) Tobacco consumption: Comment: Smokes 2 cigars a day, not interested in quitting Code(s): Z72.0 - Tobacco use Category: Social Hx Plan In office urinalysis results reviewed with the patient today; as noted above; will send for urine cytology. Recent CT results reviewed with the patient today; as noted above. Recent PSA results reviewed with the patient today; as noted above. Patient currently denies any bothersome urinary issues. He reports be happy with current voiding parameters. We discussed in office cystoscopy All questions were answered Follow-up next available in office cystoscopy; or sooner with any issues, concerns, and or questions. Orders: Orders AMB Urinalysis Automated Today Z13.9 - Encounter for screening, unspecified Urine Cytology Today R31.29 - Other microscopic hematuria Patient Instructions: The patient had an opportunity to ask questions regarding the treatment plan. All questions were answered. Physical exam, labs, and imaging were discussed and reviewed in detail. As well as risks, benefits, and discussion of treatment choices. No major barriers to understanding were identified. The patient expressed understanding and agreement with the above treatment plan. The patient was made aware they should contact our office by phone for worsening of their current condition, the appearance of new symptoms, or with any questions or concerns. Compliance is encouraged with any medications and follow up testing that is ordered. It is a privilege to be allowed the opportunity to participate in? your urological care.? Again, if you have any questions or concerns If you have any questions or concerns please do not hesitate to contact me. The office is [phone]. This note is constructed using voice recognition software. While every effort has been made to ensure accuracy animal doctor errors may have been included. Yours sincerely, Jessie Jimenez, BL[employer]AKER-BC Coding Level of Care Code New Pt Level 3 (30792) Diagnoses Bladder mass N32.89 Microscopic hematuria R31.29 Abnormal cytology R89.6 Enlarged prostate N40.0 Tobacco consumption Z72.0
--- OUTSIDE RECORDS SUMMARY | 2024-05-12 16:19 | XMS_ITS | Clinical Summary ---
Author Organization [facility] Address [address] [place] [address] Phone Care Team Providers Care Freight Breaker Name Role Phone Ines Mcdowell MD Primary Care Provider [phone] Allergies Active Allergy Reactions Criticality Noted Date [...] EST - 03/10/2024 10:20 AM EST Emergency [facility] Emergency [address] [place] [address] Allergic reaction due to antibacterial [...] CBC auto differential (03/10/2024 3:39 AM EST) [facility] WBC 6.7 4.8 - 10.8 K/mcL LAB HEMETOLOGY METHOD 03/10/2024 3:51 AM [facility] RBC 4.30(L) 4.50 - 5.50 M/mcL LAB HEMETOLOGY METHOD 03/10/2024 3:51 AM [facility] Hemoglobin 14.1 13.5 - 17.5 g/dL LAB HEMETOLOGY METHOD 03/10/2024 3:51 AM [facility] Hematocrit 42.4 42.0 - 54.0 % LAB HEMETOLOGY METHOD 03/10/2024 3:51 AM [facility] MCV 98.4(H) 79.0 - 98.0 FL LAB HEMETOLOGY METHOD 03/10/2024 3:51 AM [facility] MCH 32.7(H) 27.0 - 32.0 pcg LAB HEMETOLOGY METHOD 03/10/2024 3:51 AM [facility] MCHC 33.3 32.0 - 37.0 g/dL LAB HEMETOLOGY METHOD 03/10/2024 3:51 AM [facility] RDW 12.2 11.0 - 15.0 % LAB HEMETOLOGY METHOD 03/10/2024 3:51 AM [facility] Platelets 222 130 - 400 K/mcL LAB HEMETOLOGY METHOD 03/10/2024 3:51 AM [facility] MPV 10.0 7.0 - 11.0 FL LAB HEMETOLOGY METHOD 03/10/2024 3:51 AM [facility] NRBC 0.0 <1.0 % LAB HEMETOLOGY METHOD 03/10/2024 3:51 AM [facility] NRBC Absolute 0.00 <0.10 K/mcL LAB HEMETOLOGY METHOD 03/10/2024 3:51 AM [facility] Neutrophils Relative 62.2 % LAB HEMETOLOGY METHOD 03/10/2024 3:51 AM [facility] Lymphocytes Relative 17.0 % LAB HEMETOLOGY METHOD 03/10/2024 3:51 AM [facility] Monocytes Relative 10.4 % LAB HEMETOLOGY METHOD 03/10/2024 3:51 AM [facility] Eosinophils Relative 10.0 % LAB HEMETOLOGY METHOD 03/10/2024 3:51 AM [facility] Basophils Relative 0.1 % LAB HEMETOLOGY METHOD 03/10/2024 3:51 AM [facility] Immature Granulocytes Relative 0.3 % LAB HEMETOLOGY METHOD 03/10/2024 3:51 AM [facility] Neutrophils Absolute 4.17 1.50 - 7.00 K/mcL LAB HEMETOLOGY METHOD 03/10/2024 3:51 AM [facility] Lymphocytes Absolute 1.14 1.00 - 5.00 K/mcL LAB HEMETOLOGY METHOD 03/10/2024 3:51 AM [facility] Monocytes Absolute 0.70 0.20 - 1.00 K/mcL LAB HEMETOLOGY METHOD 03/10/2024 3:51 AM [facility] Eosinophils Absolute 0.67(H) 0.00 - 0.50 K/mcL LAB HEMETOLOGY METHOD 03/10/2024 3:51 AM [facility] Basophils Absolute 0.01 0.00 - 0.20 K/mcL LAB HEMETOLOGY METHOD 03/10/2024 3:51 AM [facility] Immature Granulocytes Absolute 0.02 0.00 - 0.03 K/mcL LAB HEMETOLOGY METHOD 03/10/2024 3:51 AM EST [facility] Blood Venous blood specimen / Unknown Venipuncture / Unknown 03/10/2024 3:39 AM EST 03/10/2024 3:46 AM EST us Anshu Berrios MD LAB BLOOD ORDERABLES Final Resu lt [facility] [address] [place] [address], [place] [phone] * (ABNORMAL) Comprehensive metabolic panel (03/10/2024 3:39 AM EST) Sodium 136 133 - 145 mmol/L LAB CHEMISTRY METHOD 03/10/2024 5:16 AM [facility] Potassium 4.4 3.5 - 5.5 mmol/L LAB CHEMISTRY METHOD 03/10/2024 5:16 AM [facility] Chloride 109 96 - 110 mmol/L LAB CHEMISTRY METHOD 03/10/2024 5:16 AM [facility] CO2 21 21 - 32 mmol/L LAB CHEMISTRY METHOD 03/10/2024 5:16 AM [facility] Anion Gap 6 3 - 11 LAB CHEMISTRY METHOD 03/10/2024 5:16 AM [facility] Glucose 104(H) 70 - 100 mg/dL LAB CHEMISTRY METHOD 03/10/2024 5:16 AM [facility] BUN 29(H) 5 - 25 mg/dL LAB CHEMISTRY METHOD 03/10/2024 5:16 AM [facility] Creatinine 1.75(H) 0.70 - 1.30 mg/dL LAB CHEMISTRY METHOD 03/10/2024 5:16 AM [facility] eGFR 38(L) >=60 mL/min/1. 73m2 LAB CHEMISTRY METHOD 03/10/2024 5:16 AM [facility] Comment:Calculation based on the??Chronic Kidney Disease Epidemiology Collaboration (CKD-EPI) equation refit??without adjustment for race. BUN/Creatinine Ratio 16.6 LAB CHEMISTRY METHOD 03/10/2024 5:16 AM [facility] Calcium 8.6 8.5 - 10.5 mg/dL LAB CHEMISTRY METHOD 03/10/2024 5:16 AM [facility] AST (SGOT) 18 10 - 42 unit/L LAB CHEMISTRY METHOD 03/10/2024 5:16 AM [facility] ALT (SGPT) 21 10 - 60 unit/L LAB CHEMISTRY METHOD 03/10/2024 5:16 AM [facility] Alkaline Phosphatase 67 42 - 121 unit/L LAB CHEMISTRY METHOD 03/10/2024 5:16 AM [facility] Total Protein 7.2 6.0 - 8.0 g/dL LAB CHEMISTRY METHOD 03/10/2024 5:16 AM [facility] Albumin 3.9 3.2 - 5.0 g/dL LAB CHEMISTRY METHOD 03/10/2024 5:16 AM [facility] Total Bilirubin 0.3 0.0 - 1.4 mg/dL LAB CHEMISTRY METHOD 03/10/2024 5:16 AM [facility] Blood Venous blood specimen / Unknown Venipuncture / Unknown 03/10/2024 3:39 AM EST 03/10/2024 3:46 AM EST us Anshu Berrios MD LAB BLOOD ORDERABLES Final Resu lt [facility] [address] [place] [address], from Last 3 Months Insurance MEDICARE [employer] - [place] MEDICARE ADVANTAGE Care Teams Freight Breaker Relationship Specialty Start Date End Date Ines Mcdowell MD PCP - General Internal Medicine 03/10/24
== END 2024-05-12 14:30 | disposition home or self-care (01) ==
PROVIDERS: PCP Internal Medicine; Visit Provider Nurse Practitioner Family
DX: N32.89 Other specified disorders of bladder (principal); R31.29 Other microscopic hematuria; R89.6 Abnormal cytological findings in specimens from other organs, systems and tissues; N40.0 Benign prostatic hyperplasia without lower urinary tract symptoms; Z72.0 Tobacco use; Z13.9 Encounter for screening, unspecified
CPT/HCPCS: 99203

== ENCOUNTER 2024-05-12 13:47 | Outpatient (REF) | payer MEDICARE, SELFPAY ==
[2024-05-12 16:51] LABS: Urine Cytology See Pathology rpt
--- OUTSIDE RECORDS SUMMARY | 2024-05-12 16:58 | XMS_ITS | Clinical Summary ---
Author Organization [facility] Address [address] [place] [address] Phone Care Team Providers Care Wide Piece Goods Inspector Name Role Phone Ines Mcdowell MD Primary Care Provider [phone] Allergies Active Allergy Reactions Criticality Noted Date [...] [facility] Emergency [address] [place] [address] Allergic reaction due to antibacterial [...] CBC auto differential (03/10/2024 3:39 AM EST) [facility] WBC 6.7 4.8 - 10.8 K/mcL LAB [...] LAB HEMETOLOGY METHOD 03/10/2024 3:51 AM EST [facility] Blood Venous blood specimen / Unknown Venipuncture / Unknown 03/10/2024 3:39 AM EST 03/10/2024 3:46 AM EST us Anshu Berrios MD LAB BLOOD ORDERABLES Final Resu lt [facility] [address] [place] [address], [place] [phone] * (ABNORMAL) Comprehensive metabolic panel (03/10/2024 3:39 [...] MD LAB BLOOD ORDERABLES Final Resu lt [facility] [address] [place] [address], from Last 3 Months Insurance MEDICARE [employer] - [place] MEDIC[place]AGE Care Teams Wide Piece Goods Inspector Relationship Specialty Start Date End Date Ines Mcdowell MD PCP - General Internal Medicine 03/10/24
== END 2024-05-12 13:48 | disposition home or self-care (01) ==
LOC: HO.LNP 13:47
PROVIDERS: PCP Internal Medicine; Visit Provider Nurse Practitioner Family
DX: N32.89 Other specified disorders of bladder (principal); R31.29 Other microscopic hematuria; R89.6 Abnormal cytological findings in specimens from other organs, systems and tissues
CPT/HCPCS: 81003; 88112; 99202

== ENCOUNTER 2024-05-14 09:42 | Outpatient (AMB) | payer MEDICARE, SELFPAY ==
--- NOTE | 2024-05-14 09:51 | A.OFFVIS_ITS ---
Intake Visit Reasons: cysto Intake Note: Patient presents today for Cystoscopy Urology Medication:none Blood Thinner: Aspirin Antibiotic Allergies: Sulfa drugs, Bactrim URO- G Disposable Cystoscope Lot:: [id number] Ex: 07/18/26 Resistor Coater Required: No Accompanied by: Self / Same As Patient Allergies sulfamethoxazole [From Bactrim] Adverse Reaction (Intermediate, Verified 05/14/24 10:38) face swelling trimethoprim [From Bactrim] Adverse Reaction (Intermediate, Verified 05/14/24 10:38) face swelling regadenoson [From Lexiscan] Adverse Reaction (Verified 05/14/24 10:38) hypotensive Medication List - Last Reconciled 05/14/24 by HORTENSIA Victor amoxicillin 2,000 mg (4 x 500 mg) PO ONCE 1 day aspirin (Adult Low Dose Aspirin) 81 mg PO DAILY coenzyme Q10 (CoQ-10) 100 mg PO DAILY glucosamine-chondroitin 250-200 mg (Osteo Bi-Flex) 2 tabs PO TID latanoprost 0.005% dryohannes ophthalmic (eye) lovastatin 40 mg PO DAILY metoprolol succinate ER 50 mg PO DAILY sacubitril-valsartan 49-51 mg (Entresto) 1 tab PO BID HPI Comments Details: Zheng is a very pleasant 83-year-old male patient of Dr. Mcdowell. He h as a past medical history of coronary artery disease, cataracts, tobacco consumption smokes cigars daily, hyperlipidemia, and hypertension. He presents to the office today for in office cystoscopy. Of note, patient was seen earlier this week for further assessment evaluation of microscopic hematuria, abnormal cytology, and abnormal CT at which time recommendations were made for urology referral for further assessment evaluation. In office cystoscopy was performed and right-sided bladder wall lesion of 2-3 cm was noted. Previous workup has included CT 05/06 notes focal nodular masslike thickening along the superior aspect of the urinary bladder measuring 1.0 cm. Recommend with direct visualization. No evidence of renal obstruction, no renal or ureteral calculus noted bilaterally. Nonenhancing lesion along the inferior pole of the right kidney measuring 0.7 cm likely representing a proteinaceous cyst. Prostatomegaly. In review of patient's chart it appears urine cytologies: 10/30 Negative for high-grade urothelial carcinoma, 03/04 Atypical urothelial cells, 05/06 Negative for high-grade urothelial carcinoma, 06/03 pending. He does report a longstanding history of cigar smoking over 65 years. However quit last week after results of CT. He does report an episode of gross hematuria a few years ago however does not recall how long ago this was. He describes this as an isolated incident and has not experienced any gross/visible hematuria. He currently denies any bothersome urinary issues. He denies urinary urgency, urinary frequency, incontinence, nocturia, dysuria, foul smelling urine, changes to urinary stream, flank pain, fever, and or chills. He is happy with his current voiding parameters. He does however continue to report right- sided low-back pain. We discussed at length further treatment options to include cystoscopy with transurethral resection of bladder tumor. We discussed risks and benefits of this surgical intervention. All questions were answered. He otherwise offers no other issues or concerns at this time. In review of patient's chart it appears PSA 05/06 1.2 PFSH Medical History CAD (coronary artery disease) Annual physical exam Cataract UTI (urinary tract infection) Tobacco consumption Hyperlipidemia HTN (hypertension) Surgical History Hx of hernia repair H/O colonoscopy No pertinent past surgical history Family History Father Stomach cancer Mother No problems noted. Social History Housing: House Alcohol intake: never Patient Tobacco Use Status: Current someday Tobacco user Tobacco use type: Cigar e-Cigarette/Vaping Use: Never Used service: Yes Current occupational status: retired Cognitive needs: No Hearing needs: No Vision needs: Yes Review of Systems Const All systems reviewed & are unremarkable except as noted in HPI and below Physical Exam Const General: cooperative, healthy appearing, comfortable, no acute distress, well developed, alert and awake Orientation/consciousness: patient oriented x3 Limitations: no limitations HEENT Head: Yes normal to inspection, Yes normocephalic and Yes atraumatic Ears: hearing grossly normal bilaterally Eyes General: appearance normal, both eyes and all related structures Neck Neck: Yes normal visual inspection and Yes trachea midline Chest Chest palpation & inspection: normal inspection of the chest Resp Effort & Inspection: normal respiratory effort and able to speak in complete sentences Cardio Rate: regular rate GI Inspection: Yes normal to inspection General: Yes no CVA tenderness Penis: uncircumcised Meatus: meatus normal Scrotum: scrotum normal Testes: Testes normal Back/Spine/Pelvis Back: no CVA tenderness Skin General skin exam: no rashes or lesions noted Neuro General: patient oriented x3 Extrem General: Yes normal to inspection Psych Appearance: grossly normal and well kempt Mental Status: mental status grossly normal Speech and movement: Normal speech and movement present and Clear speech present Affect: normal affect Attitude: cooperative Thought process: Normal thought process present Thought content: Normal thought content present Insight: Fair insight present (Psych) Judgement: Fair judgement present (Psych) Office Procedures Cystoscopy Consent Discussed risk and benefit or proposed procedure with the patient. Information consent for procedure given to the patient. Discussed technical aspects, risks, benefits and alternatives in full. Addressed all of the patient's questions and concerns regarding the procedure. The patient demonstrated knowledge and understanding. They wish to proceed with this procedure. Preparation The patient was prepped in the usual manner. A log chipper operator was present and in the room. Genitalia was prepped with betadine solution in a sterile manner. Lidocaine Jelly 2% was placed into the urethra and 16Fr flexible cystoscope was inserted into the meatus after adequate lubrication. Procedure Meatus normal position Urethra normal Bladder examination with retroflexion of cystoscope Bladder Orifices normal shape and position Trigone normal Bladder Capacity moderate Trabeculations moderate Cellule Formation none Diverticulum Formation none Mucosal Erythema mild Bladder Tumor right-sided bladder wall lesion a proximally 2-3 cm in size Patient tolerated procedure well [id number] DISPOSABLE SCOPE URO-G FLEXIBLE SCOPE Procedure code (CPT) selection complete Office Meds lidocaine HCl 2 % mucosal jelly in applicator Performing Provider: HORTENSIA Victor Performing Location: [facility] [facility] Administered by: Yola Roy RN on 05/14/24 10:22 Dose Route Admin Location Dispensed Lot Number Expiration Date ND [employer] 10 mL intra-urethral 10 mL nitrofurantoin monohydrate/macrocrystals 100 mg capsule Performing Provider: HORTENSIA Victor Performing Location: [facility] [facility] Administered by: Yola Roy RN on 05/14/24 10:22 Dose Route Admin Location Dispensed Lot Number Expiration Date NDC [employer] 100 mg PO 1 cap Results AMB Urinalysis, Automated UA Leukoctes 15 Pee/uL Last Edit by Sheron Smyth on 05/14/24 10:13 UA Nitrite Negative Last Edit by [employer] on 05/14/24 10:13 UA Urobilinogen 0.2 mg/dL Last Edit by [employer] Nola on 05/14/24 10:13 UA Protein 30 mg/dL Last Edit by [employer] Nola on 05/14/24 10:13 UA pH 6.0 Last Edit by [employer] on 05/14/24 10:13 UA Blood 10 Mike/uL Last Edit by [employer] Nola on 05/14/24 10:13 UA Specific [place] 1.015 Last Edit by [employer] Nola on 05/14/24 10:13 UA Ketone Positive Last Edit by [employer] Nola on 05/14/24 10:13 UA Bilirubin 1 mg/dL Last Edit by [employer] Nola on 05/14/24 10:13 UA Glucose 0 mg/dL Last Edit by [employer] N[employer] on 05/14/24 10:13 Results Reviewed Results Reviewed: Laboratory Last Values Urine pH (Auto) 6.0 05/14/24 10:12 Specific [place] (Auto) 1.015 05/14/24 10:12 Urine Protein (Auto) 30 mg/dL 05/14/24 10:12 Glucose (UA)(Auto) 0 mg/dL 05/14/24 10:12 Urine Ketones (Auto) Positive 05/14/24 10:12 Urine Blood (Auto) 10 Mike/uL 05/14/24 10:12 Urine Nitrite (Auto) Negative 05/14/24 10:12 Urine Bilirubin (Auto) 1 mg/dL 05/14/24 10:12 Urine Urobilinogen (Auto) 0.2 mg/dL 05/14/24 10:12 Leukocyte Esterase (Auto) 15 Pee/uL 05/14/24 10:12 Assessment & Plan Assessment & Plan (1) Bladder mass: Code(s): N32.89 - Other specified disorders of bladder Category: Medical (2) Abnormal cytology: Code(s): R89.6 - Abnormal cytological findings in specimens from other organs, systems and tissues Category: Medical (3) Enlarged prostate: Code(s): N40.0 - Benign prostatic hyperplasia without lower urinary tract symptoms Category: Medical (4) Microscopic hematuria: Comment: smoker, Pt will have CT urogram 04/2023 and was referred to urology Code(s): R31.29 - Other microscopic hematuria Category: Medical (5) Tobacco consumption: Comment: Smokes 2 cigars a day, not interested in quitting Code(s): Z72.0 - Tobacco use Category: Social Hx Plan: Risks, benefits and alternatives to therapy were discussed. These include but are not limited to infection, bleeding, damage to local organs and tissues, need for further interventions. ? Anesthetic risks regarding cardiac arrhythmia, blood clots, and potential mortality were discussed. The patient understands the typical recovery time and the outpatient nature of the procedure. After consideration of these risks the patient gives full informed consent and they wish to move ahead with the procedure. Plan In office urinalysis results with the patient today; as noted above. In office cystoscopy was performed right-sided 2-3 cm bladder lesion noted We discussed further treatment options to include cystoscopy TURBT. All questions were answered We discussed risks and benefits of surgical procedure. Will schedule for next available cystoscopy with TURBT Follow-up per doctor's orders; or sooner with any issues, concerns, and or questions. Orders: Orders AMB Urinalysis Automated 05/13/24 Z13.9 - Encounter for screening, unspecified AMB Urinalysis Automated Today Z13.9 - Encounter for screening, unspecified AMB Cystoscopy Today N32.89 - Other specified disorders of bladder, N40.0 - Benign prostatic hyperplasia without lower urinary tract symptoms Patient Instructions: The patient had an opportunity to ask questions regarding the treatment plan. All questions were answered. Physical exam, labs, and imaging were discussed and reviewed in detail. As well as risks, benefits, and discussion of treatment choices. No major barriers to understanding were identified. The patient expressed understanding and agreement with the above treatment plan. The patient was made aware they should contact our office by phone for worsening of their current condition, the appearance of new symptoms, or with any questions or concerns. Compliance is encouraged with any medications and follow up testing that is ordered. It is a privilege to be allowed the opportunity to participate in? your urological care.? Again, if you have any questions or concerns If you have any questions or concerns please do not hesitate to contact me. The office is [phone]. This note is constructed using voice recognition software. While every effort has been made to ensure accuracy excellence leader errors may have been included. Yours sincerely, HORTENSIA Victor Coding Level of Care Code Est Pt Level 4 (31203) Diagnoses Bladder mass N32.89 Abnormal cytology R89.6 Enlarged prostate N40.0 Microscopic hematuria R31.29 Tobacco consumption Z72.0 CPT Codes Cystoscopy - CPT: [id number] ([id number])
--- OUTSIDE RECORDS SUMMARY | 2024-05-14 11:03 | XMS_ITS | Clinical Summary ---
Author Organization [facility] Address [address] [place] [address] Phone Care Team Providers Care Account Manager [employer] Name Role Phone Ines Mcdowell MD Primary Care Provider [phone] Allergies Active Allergy Reactions Criticality Noted Date [...] EST - 03/10/2024 10:20 AM EST Emergency [facility] Emergency [address] [place] [address] Allergic reaction due to antibacterial [...] CBC auto differential (03/10/2024 3:39 AM EST) [facility] WBC 6.7 4.8 - 10.8 K/mcL [...] Resu lt [facility] [address] [place] [address], [place] [phone] * (ABNORMAL) Comprehensive metabolic panel (03/10/2024 3:39 [...] Resu lt [facility] [address] [place] [address], from Last 3 Months Insurance MEDICARE BLUE CROSS - [place] MEDICARE ADVANTAGE Care Teams Account Manager [employer] Relationship Specialty Start Date End Date Ines Mcdowell MD PCP - General Internal Medicine 03/10/24
== END 2024-05-14 10:40 | disposition home or self-care (01) ==
PROVIDERS: PCP Internal Medicine; Visit Provider Nurse Practitioner Family
DX: N32.89 Other specified disorders of bladder (principal); R89.6 Abnormal cytological findings in specimens from other organs, systems and tissues; N40.0 Benign prostatic hyperplasia without lower urinary tract symptoms; R31.29 Other microscopic hematuria; Z72.0 Tobacco use; Z13.9 Encounter for screening, unspecified
CPT/HCPCS: 52000

== ENCOUNTER → 2024-05-14 09:42 | Outpatient (BNVA) | payer MEDICARE, SELFPAY | PROVIDERS: PCP Internal Medicine; Visit Provider Nurse Practitioner Family | DX: N32.89 Other specified disorders of bladder (principal); R89.6 Abnormal cytological findings in specimens from other organs, systems and tissues; N40.0 Benign prostatic hyperplasia without lower urinary tract symptoms; R31.29 Other microscopic hematuria; F17.290 Nicotine dependence, other tobacco product, uncomplicated | CPT/HCPCS: 52000; 81003 ==

== ENCOUNTER 2024-06-17 07:19 | Day surgery (SDC) | payer MEDICARE, SELFPAY ==
[2024-06-13 14:44] VITALS: BMI 25.5
--- NOTE | 2024-06-16 12:11 | HO.ANESPROP2 ---
HPI - Anesthesia Eval Consult details Narrative: 83yo M for cystoscopy TUR Bladder Tumor Follows [facility] [place] Cardiology for CAD, CMP (EF 45%). Stable at 02/2024 yearly routine visit. Optimized to proceed barring any new concerning cardiac symptoms per workload message. [facility] Active Problems Active Problems: All Active Problems Enlarged prostate (Acute) Abnormal cytology (Acute) Bladder mass (Acute) Cardiac arrhythmia (Acute) Diarrhea (Acute) Cardiomyopathy (Acute) Heart murmur (Acute) Tinea cruris (Acute) BPH (benign prostatic hyperplasia) (Acute) Osteoarthritis of left hip (Acute) Sciatica (Acute) Rash (Acute) Tenosynovitis of foot (Acute) Gout (Acute) Hip pain, left (Acute) Microscopic hematuria (Acute) Tobacco consumption (Acute) CAD (coronary artery disease) (Acute) Annual physical exam (Acute) Cataract (Acute) UTI (urinary tract infection) (Acute) Hyperlipidemia (Acute) HTN (hypertension) (Acute) Past Medical History Medical History (Updated 06/13/24 @ 14:53 by Faby Lundberg RN) Cardiomyopathy Former cigar smoker Post-operative nausea and vomiting Glaucoma CAD (coronary artery disease) Annual physical exam Cataract UTI (urinary tract infection) Hyperlipidemia HTN (hypertension) Family History Family History Father Stomach cancer Mother No problems noted. Surgical History Surgical History (Updated 06/13/24 @ 14:42 by Faby Lundberg, YOLIS) Hx of bilateral cataract extraction History of left hip replacement (~2022) Hx of hernia repair H/O colonoscopy Social History Social History (Updated 06/13/24 @ 14:48 by Faby Lundberg, YOLIS) Housing: House Are you a primary healthcare administrator to a significant other at home: No Do you presently have visiting nurse or other home services: No Alcohol intake: never Comment: uses a cane at times Patient Tobacco Use Status: Former Tobacco user Tobacco use type: Cigar Smoked in Last 30 Days: No e-Cigarette/Vaping Use: Never Used Use of substances other than those prescribed or required for medical reasons: No Have you been hit, kicked, punched, or otherwise hurt by someone within the past year? If so, by whom?: No Are you DNR?: No Advance Directives: No (will bring dos) Advance Directives Information Provided: No Advance Directives on File: No Poor oral hygiene: No service: Yes Current occupational status: retired Cognitive needs: No Hearing needs: No Vision needs: Yes Meds Allergies Allergy/AdvReac Type Severity Reaction Status Date / Time regadenoson [From Lexiscan] AdvReac Intermediate hypotensive Verified 06/13/24 14:40 sulfamethoxazole AdvReac Intermediate face Verified 06/13/24 14:40 [From Bactrim] swelling trimethoprim [From Bactrim] AdvReac Intermediate face Verified 06/13/24 14:40 swelling Home Medications ?Medication ?Instructions ?Recorded ?Confirmed ?Last Taken ?Type aspirin 81 mg tablet,delayed 81 mg PO DAILY 04/27/20 06/13/24 Unknown History release (Adult Low Dose Aspirin) latanoprost 0.005 % eye drops 1 drp ophthalmic (eye) BEDTIME 09/04/23 06/13/24 Unknown History Exam Height,Weight and Vital Signs: Height 5 ft 9 in Weight 78.471 kg Pertinent Lab Results Pertinent Lab Results: Laboratory Tests 04/15/24 06:46 WBC 6.9 Hgb 13.8 L Hct 41.6 L Plt Count 242 Sodium 143 Potassium 4.6 Chloride 108 Carbon Dioxide 24 BUN 19 H Creatinine 1.26 Narrative Narrative: Holter 02/2024 1. Patient was monitored for total period of 2 days and 22 hours 2. Baseline was normal sinus rhythm with average heart of 70 beats per minute with underlying bundle-branch block 3. No significant pauses noted 4. Frequent PVCs noted with total burden of 7.3%, 3 episodes of 3 beat salvos of nonsustained VT at 138 beats per minute 5. Frequent PACs noted with total burden of 8% without sustained atrial fibrillation 6. No patient reported events 7. Overall compared to prior Holter the PVC burden has improved ECHO 02/2024 Conclusions: - The left ventricular systolic function is mildly decreased. The calculated ejection fraction is 49% by biplane method. - No obvious valvular pathology seen on this study. Assessment and Plan Assessment Anesthesia Assessment: Chart Reviewed
[2024-06-17] VITALS (9 sets, daily range): BP systolic 122–135; BP diastolic 59–81; PULSE 54–80; RESP 16–18; TEMP 36.4–37; O2SAT 96–100
[2024-06-17] MEDS: Scopolamine 1.5 MG PATCH.TD.3 TRANSDERMA (07:39)
[2024-06-17] MEDS: Lactated Ringers 1,000 ML 100 ML IVCONT (07:39)
--- NOTE | 2024-06-17 09:18 | W.PM.OPN ---
Operative Note Operative Note Date of Service: 06/17/24 Narrative: PREOP DIAGNOSIS: Bladder tumor POSTOP DIAGNOSIS: Bladder tumor PROCEDURE: CYSTOSCOPY, random bladder biopsies, resection of irregular erythematous area over right lateral wall near trigone SURGEON: Aditya Arevalo MD ANESTHESIA: General Findings: Prominent vascular raised irregular tissue noted along the right linda trigone- 1-2 cm Details of procedure: The patient was brought into the operating room placed on the OR table in supine position. Ancef 2 g IV. General anesthesia was administered. The patient was repositioned into lithotomy position, prepped and draped in the usual sterile fashion. Time-out was done per protocol. A 22 fr cystoscope was placed transurethrally into the bladder. There was noted to be vascular irregular changes at the right side of the trigone. The right and left ureteral orifices were visualized. There were moderate trabeculations noted. Cellule changes were noted as well as multiple diverticuli. Random bladder biopsies from the posterior wall and left lateral wall were done using the flexible biopsy forceps. A biopsy was done of the irregular tissue noted at the right side of the trigone. The cystoscope was removed and the resectoscope was placed transurethrally using the loop working element the irregular tissue was resected the base was fulgurated. The random bladder biopsies were cauterized to obtain adequate hemostasis. After removing the resectoscope, 2% lidocaine urojet was passed transurethrally into the bladder, and a [address] catheter was placed to gravity drainage. The patient was brought out of anesthesia and taken to recovery in stable condition. Complications: None Drains: 20 [place] [address]
--- NOTE | 2024-06-17 09:18 | MHC.SHP ---
Pre-Procedural Eval Section A - 24 Hr Update-Section A only Date of Service: 06/17/24 The patient is an INPATIENT: No The patient has been examined within 24 hours of the surgical procedure. The History & Physical has been completed within 30 days and I have reviewed it.: Yes Section B - Complete if H&P > 30 days Chief Complaint: Other specified disorders of bladder Allergies: Allergies Allergy/AdvReac Type Severity Reaction Status Date / Time regadenoson [From Lexiscan] AdvReac Intermediate hypotensive Verified 06/13/24 14:40 sulfamethoxazole AdvReac Intermediate face Verified 06/13/24 14:40 [From Bactrim] swelling trimethoprim [From Bactrim] AdvReac Intermediate face Verified 06/13/24 14:40 swelling Plan Diagnosis/Plan: Unchanged I have reviewed the history and physical and performed a pertinent physical examination on my patient. No changes have occurred unless specified. Cystoscopy. Transurethral resection bladder tumor fulguration. bladder biopsies. Discussed risks to include but not limited to, blood in the urine, burning with urination, urgency. Time Spent With Patient Time: Total time managing care of this patient today ____ minutes.
[2024-06-17] MEDS: ceFAZolin Sodium/Dextrose,Iso 2 GM/50 ML PIGGYBACK IV (09:42)
[2024-06-17] MEDS: Phenazopyridine HCL 200 MG TABLET PO (11:09)
[2024-06-17] MEDS: Acetaminophen 1,000 MG/100 ML PIGGYBACK 400 MG IV (11:10)
== END 2024-06-17 12:32 | disposition home or self-care (01) ==
PROVIDERS: PCP Internal Medicine; Visit Provider Urology
PROC: 0TBB8ZZ Excision of Bladder, Via Natural or Artificial Opening Endoscopic (ICD-10-PCS; CPT 52234; principal; 2024-06-17 09:00)
DX: D30.3 Benign neoplasm of bladder (principal); N32.89 Other specified disorders of bladder; R31.29 Other microscopic hematuria; N32.3 Diverticulum of bladder; N40.0 Benign prostatic hyperplasia without lower urinary tract symptoms; R89.6 Abnormal cytological findings in specimens from other organs, systems and tissues; I25.10 Atherosclerotic heart disease of native coronary artery without angina pectoris; I10 Essential (primary) hypertension; E78.5 Hyperlipidemia, unspecified; Z79.82 Long term (current) use of aspirin; Z79.899 Other long term (current) drug therapy; Z88.2 Allergy status to sulfonamides; Z88.8 Allergy status to other drugs, medicaments and biological substances; F17.290 Nicotine dependence, other tobacco product, uncomplicated; Z98.890 Other specified postprocedural states
CPT/HCPCS: 52234; 52204; 88305; 88307; J0131; J0690; J1100; J2003; J2371; J2405; J2704; J3010

== ENCOUNTER → 2024-06-17 07:19 | Outpatient (BNV) | payer MEDICARE, SELFPAY | PROVIDERS: PCP Internal Medicine; Visit Provider Urology | DX: D30.3 Benign neoplasm of bladder (principal) | CPT/HCPCS: 52204; 52234 ==

== ENCOUNTER → 2024-06-20 09:46 | Outpatient (BNVA) | payer MEDICARE, SELFPAY | PROVIDERS: PCP Internal Medicine; Visit Provider Urology | DX: Z13.89 Encounter for screening for other disorder (principal) ==

== ENCOUNTER 2024-07-22 07:48 | Outpatient (AMB) | payer MEDICARE, SELFPAY ==
--- OUTSIDE RECORDS SUMMARY | 2024-07-22 07:51 | XMS_ITS | Clinical Summary ---
Author Organization [facility] Address [address] [place] [address] Phone Care Team Providers Care Storage Battery Charger Name Role Phone Ines Mcdowell MD Primary Care Provider [phone] Allergies Active Allergy Reactions Criticality Noted Date Comments Iodinated Contrast Media Dizziness 03/10/2024 Medications diphenhydrAMINE (BENADRYL) 25 mg capsule Take 1 capsule (25 mg total) by mouth every 4 (four) hours if needed for itching for up to 4 days. 16 capsule 03/10/2024 Active Active Problems No known active problems Social History Tobacco Use Types Packs/Day Years [...] Vaccines (1 of 2) 1990 RSV Immunization Adult Patie nts (1 - 1-dose 75+ series) 10/02/2015 COVID-19 Vaccine ( - 2023-2 5 season) 2023 Cholesterol Screening (Lipid Panel) 03/10/2024 Depression Screening 03/10/2024 Falls Risk Assessment 03/10/2024 Medicare Annual Wellness Visit 03/10/2024 Social Influencers of Health Screening 03/10/2024 Influenza Vaccine (Season Ended) 2024 Hypertension/CHF/CAD Annual BMP Blood Test 03/10/2025 03/10/2024 [...] age to complete this topic Meningococcal B Vaccine Aged Out No l onger eligible based on patient's age to complete this topic RSV Immunization Patients Un vito 20 months Aged Out No longer eligible b ased on patient's age to complete this topic Varicella Vaccines Aged Out No longer eligible based on patient's age to complete this topic Procedures Procedure Name Priority Date/Time Associated Diagnosis Comments COMPREHENSIVE METABOLIC PANEL STAT 03/10/2024 3:39 AM EST from Last 3 Months or Most Recently Relevant to Health Maintenance Results * (ABNORMAL) Comprehensive metabolic panel (03/10/2024 3:39 AM EST) Sodium 136 133 - 145 mmol/L LAB CHEMISTRY METHOD 03/10/2024 5:16 AM EST [facility] Potassium 4.4 3.5 - 5.5 mmol/L LAB CHEMISTRY METHOD 03/10/2024 5:16 AM [facility] Chloride 109 96 - 110 mmol/L LAB CHEMISTRY METHOD 03/10/2024 5:16 AM [facility] CO2 21 21 - 32 mmol/L LAB CHEMISTRY METHOD 03/10/2024 5:16 AM [facility] Anion Gap 6 3 - 11 LAB CHEMISTRY METHOD 03/10/2024 5:16 AM [facility] Glucose 104(H) 70 - 100 mg/dL LAB CHEMISTRY METHOD 03/10/2024 5:16 AM [facility] BUN 29(H) 5 - 25 mg/dL LAB CHEMISTRY METHOD 03/10/2024 5:16 AM [facility] Creatinine 1.75(H) 0.70 - 1.30 mg/dL LAB CHEMISTRY METHOD 03/10/2024 5:16 AM [facility] eGFR 38(L) >=60 mL/min/1. 73m2 LAB CHEMISTRY METHOD 03/10/2024 5:16 AM [facility] Comment:Calculation based on the??Chronic Kidney Disease Epidemiology Collaboration (CKD-EPI) equation refit??without adjustment for race. BUN/Creatinine Ratio 16.6 LAB CHEMISTRY METHOD 03/10/2024 5:16 AM [facility] Calcium 8.6 8.5 - 10.5 mg/dL LAB CHEMISTRY METHOD 03/10/2024 5:16 AM [facility] AST (SGOT) 18 10 - 42 unit/L LAB CHEMISTRY METHOD 03/10/2024 5:16 AM [facility] ALT (SGPT) 21 10 - 60 unit/L LAB CHEMISTRY METHOD 03/10/2024 5:16 AM [facility] Alkaline Phosphatase 67 42 - 121 unit/L LAB CHEMISTRY METHOD 03/10/2024 5:16 AM [facility] Total Protein 7.2 6.0 - 8.0 g/dL LAB CHEMISTRY METHOD 03/10/2024 5:16 AM EST [facility] Albumin 3.9 3.2 - 5.0 g/dL LAB CHEMISTRY METHOD 03/10/2024 5:16 AM EST [facility] Total Bilirubin 0.3 0.0 - 1.4 mg/dL LAB CHEMISTRY METHOD 03/10/2024 5:16 AM EST [facility] Blood Venous blood specimen / Unknown Venipuncture / Unknown 03/10/2024 3:39 AM EST 03/10/2024 3:46 AM EST us Anshu Berrios MD LAB BLOOD ORDERABLES Final Resu lt [facility] [address] [place] [address], [place] [phone] from Last 3 Months or Most Recently Relevant to Health Maintenance Insurance MEDICARE [facility] Care Teams Storage Battery Charger Relationship Specialty Start Date End Date Ines Mcdowell MD PCP - General Internal Medicine 03/10/24
--- NOTE | 2024-07-22 08:07 | MHC.OFFVIS ---
Intake Visit Reasons: TURBT follow up Intake Note: Patient presents to office today for TURBT follow up Urology Meds:None Allergies to Antibiotics:None Blood Thinner:None PVR:15ml Human Resources Office Manager Required: No Allergies regadenoson [From Lexiscan] Adverse Reaction (Intermediate, Verified 07/22/24 08:16) hypotensive sulfamethoxazole [From Bactrim] Adverse Reaction (Intermediate, Verified 07/22/24 08:16) face swelling trimethoprim [From Bactrim] Adverse Reaction (Intermediate, Verified 07/22/24 08:16) face swelling Medication List - Last Reconciled 07/22/24 by Aditya Arevalo MD aspirin (Adult Low Dose Aspirin) 81 mg PO DAILY coenzyme Q10 (CoQ-10) 100 mg PO DAILY finasteride (Proscar) 5 mg PO DAILY glucosamine-chondroitin 250-200 mg (Osteo Bi-Flex) 2 tabs PO TID latanoprost 0.005% 1 drp ophthalmic (eye) BEDTIME lovastatin 40 mg PO DAILY metoprolol succinate ER 50 mg PO BID sacubitril-valsartan 49-51 mg (Entresto) 1 tab PO BID HPI Comments Details: 07/22/2024--Zheng is an 83-year-old male who was initially evaluated by the nurse practitioner Jessie Jimenez for BPH and workup for microscopic hematuria included findings of atypical cytology and abnormal findings on CT scan noting nodularity on the right side of the bladder. He is status post cystoscopy with TURBT and bladder biopsies. Findings on cystoscopy noted irregular thickening and inflammatory changes on the right side of the bladder there were no papillary masses visualized. Bladder pathology was negative for malignant cells. 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 Also review of operative findings noted significant trabeculations with cellule changes and diverticuli. Bladder scan PVR is 15 mL will start Proscar 5 mg daily follow-up office cystoscopy in 6 months. 05/14/24--Zheng is a very pleasant 83-year-old male patient of Dr. Mcdowell. He has a past medical history of coronary artery disease, cataracts, tobacco consumption smokes cigars daily, hyperlipidemia, and hypertension. He presents to the office today for in office cystoscopy. Of note, patient was seen earlier this week for further assessment evaluation of microscopic hematuria, abnormal cytology, and abnormal CT at which time recommendations were made for urology referral for further assessment evaluation. In office cystoscopy was performed and right-sided bladder wall lesion of 2-3 cm was noted. Previous workup has included CT 05/06 notes focal nodular masslike thickening along the superior aspect of the urinary bladder measuring 1.0 cm. Recommend with direct visualization. No evidence of renal obstruction, no renal or ureteral calculus noted bilaterally. Nonenhancing lesion along the inferior pole of the right kidney measuring 0.7 cm likely representing a proteinaceous cyst. Prostatomegaly. In review of patient's chart it appears urine cytologies: 10/30 Negative for high-grade urothelial carcinoma, 03/04 Atypical urothelial cells, 05/06 Negative for high-grade urothelial carcinoma, 06/03 pending. He does report a longstanding history of cigar smoking over 65 years. However quit last week after results of CT. He does report an episode of gross hematuria a few years ago however does not recall how long ago this was. He describes this as an isolated incident and has not experienced any gross/visible hematuria. He currently denies any bothersome urinary issues. He denies urinary urgency, urinary frequency, incontinence, nocturia, dysuria, foul smelling urine, changes to urinary stream, flank pain, fever, and or chills. He is happy with his current voiding parameters. He does however continue to report right-sided low-back pain. We discussed at length further treatment options to include cystoscopy with transurethral resection of bladder tumor. We discussed risks and benefits of this surgical intervention. All questions were answered. He otherwise offers no other issues or concerns at this time. In review of patient's chart it appears PSA 05/06 1.2 PFSH Medical History (Updated 07/22/24 @ 09:13 by Aditya Arevalo MD) Cardiomyopathy Former cigar smoker Post-operative nausea and vomiting Glaucoma CAD (coronary artery disease) Annual physical exam Cataract UTI (urinary tract infection) Hyperlipidemia HTN (hypertension) Surgical History Hx of bilateral cataract extraction History of left hip replacement (~2022) Hx of hernia repair H/O colonoscopy Family History Father Stomach cancer Mother No problems noted. Social History Housing: House Are you a primary menagerie caretaker to a significant other at home: No Do you presently have visiting nurse or other home services: No Alcohol intake: never Comment: uses a cane at times Patient Tobacco Use Status: Former Tobacco user Tobacco use type: Cigar e-Cigarette/Vaping Use: Never Used service: Yes Current occupational status: retired Cognitive needs: No Hearing needs: No Vision needs: Yes Review of Systems Const All systems reviewed & are unremarkable except as noted in HPI and below Reports no additional complaints Eyes Reports no additional complaints ENT Reports no additional complaints Card Reports no additional complaints Resp Reports no additional complaints GI Reports no additional complaints Reports as per HPI Musc Reports no additional complaints Skin/Breast Reports system reviewed and no additional complaints, except as documented Neuro Reports no additional complaints Psych Reports no additional complaints Endo Reports no additional complaints Cheko/Lymph Reports no additional complaints Aller/Immun Reports no additional complaints Results AMB Urinalysis, Automated UA Leukoctes 125 Pee/uL Last Edit by Bernice Valentina on 07/22/24 08:24 UA Nitrite Negative Last Edit by Bernice Valentina on 07/22/24 08:24 UA Urobilinogen 0.2 mg/dL Last Edit by Bernice Valentina on 07/22/24 08:24 UA Protein 15 mg/dL Last Edit by Bernice Valentina on 07/22/24 08:24 UA pH 6.0 Last Edit by Bernice Valentina on 07/22/24 08:24 UA Blood 10 Mike/uL Last Edit by Bernice Valentina on 07/22/24 08:24 UA Specific [place] 1.025 Last Edit by Bernice Valentina on 07/22/24 08:24 UA Ketone Negative Last Edit by Bernice Valentina on 07/22/24 08:24 UA Bilirubin 1 mg/dL Last Edit by Bernice Valentina on 07/22/24 08:24 UA Glucose 0 mg/dL Last Edit by Bernice Valentina on 07/22/24 08:24 Results Reviewed Results Reviewed: Laboratory Last Values Urine pH (Auto) 6.0 07/22/24 08:17 Specific [place] (Auto) 1.025 07/22/24 08:17 Urine Protein (Auto) 15 mg/dL 07/22/24 08:17 Glucose (UA)(Auto) 0 mg/dL 07/22/24 08:17 Urine Ketones (Auto) Negative 07/22/24 08:17 Urine Blood (Auto) 10 Mike/uL 07/22/24 08:17 Urine Nitrite (Auto) Negative 07/22/24 08:17 Urine Bilirubin (Auto) 1 mg/dL 07/22/24 08:17 Urine Urobilinogen (Auto) 0.2 mg/dL 07/22/24 08:17 Leukocyte Esterase (Auto) 125 Pee/uL 07/22/24 08:17 Collected: 06/17/24 Location: [facility] Received: 06/17/24 Diagnosis A. Bladder, posterior wall, biopsy: -Benign urothelium with chronic cystitis. -No muscularis propria present. B. Bladder, left lateral wall, biopsy: -Benign urothelium with chronic cystitis. -No muscularis propria present. C. 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 -No muscularis propria present. D. Labeled bladder tumor , transurethral resection: -Predominantly denuded benign urothelium with cystitis cystica et glandularis and prominent granulation tissue. -Muscularis propria present. Clinical History Disorders of bladder Microscopic Description Microscopic sections reviewed. Material Received A. Posterior wall bladder bx's B. Left lateral wall bladder bx's C. Right sided bladder lesion D. Bladder tumor Gross Description Received in four parts. Date of Service: 05/05/24 CT abdomen and pelvis with and without IV contrast. COMPARISON: None FINDINGS: Minimal atelectasis along the lung bases. Moderate hiatal hernia. No focal hepatic lesion. Normal gallbladder. Normal spleen. Normal pancreas. Normal adrenal glands. Duodenal diverticulum present along the 2nd portion. No surrounding inflammatory changes. No right-sided hydronephrosis or hydroureter. Nonenhancing hepatic lesion along the inferior pole of the right kidney with Hounsfield units of 51 measuring (series 5, image 174 and series coronal/6, image 53). Right renal parapelvic cyst measuring 1.6 x 1.1 cm. No right renal or ureteral calculus. No left-sided hydronephrosis or hydroureter. No left renal or ureteral calculus. Normal appendix. Mild moderate colonic stool burden. No bowel obstruction. Moderate distal colonic diverticulosis without evidence of diverticulitis. There is diffuse thickening of the mucosa of the proximal sigmoid colon, likely representing diverticulosis coli. No mesenteric or retroperitoneal lymphadenopathy. Moderate aortoiliac atherosclerotic vascular calcifications. Evaluation of the pelvis is mildly limited secondary to left total hip arthroplasty. Mild diffuse thickening of the mucosa of the urinary bladder. Focal nodular/masslike thickening of the mucosa of the urinary bladder along the superior aspect measuring 1.0 x 0.8 cm (series coronal/10, image 52). Prostate calcifications present. Prostate is enlarged measuring up to 5.2 cm. Partially visualized left hip arthroplasty. Advanced degenerative changes of the right hip with [id number] apposition and prominent subchondral cysts within the femoral head and acetabulum. Visualized bones of the pelvis appear intact. Grade 1 anterolisthesis of L5 on S1, degenerative. Bone island present within the L2 vertebral body. [id number] spondylosis. IMPRESSION: 1. Focal nodular/masslike thickening along the superior aspect of the urinary bladder measuring 1.0 x 0.8 cm. Recommend direct visualization. 2. No evidence of renal obstruction. No renal or ureteral calculus bilaterally. 3. Nonenhancing lesion along the inferior pole of the right kidney measuring up to 0.7 cm 0.7 cm, likely representing a proteinaceous cyst. 4. Colonic diverticulosis without evidence of diverticulitis. Diffuse thickening of the mucosa of the sigmoid colon likely secondary to diverticulosis coli. 5. Prostatomegaly. 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 Code(s): N32.9 - Bladder disorder, unspecified Category: Medical (4) Bladder wall thickening: Code(s): N32.89 - Other specified disorders of bladder Category: Medical (5) Former cigar smoker: Code(s): Z87.891 - Personal history of nicotine dependence Category: Social Hx Plan Proscar 5 mg daily follow-up office cystoscopy in 6 months Orders: Orders AMB Urinalysis Automated Today Z13.9 - Encounter for screening, unspecified Medications: New finasteride (Proscar) 5 mg PO DAILY 90 tabs 3RF Discontinued phenazopyridine (Azo Urinary Pain Relief) Discontinued Reason: Patient no longer taking 99.5 mg orally ;take with food Use q 12 hours for 3 days than use 2 times daily prn for pain from urinary catheter. 12 tabs 0RF oxycodone-acetaminophen 5-325 mg (Percocet) Partial Fill upon patient request. take 1/2 - 1 tab every 6-8 hrs as needed for pain Discontinued Reason: Patient no longer taking 1 tab PO Q6-8H 3 days PRN 6 tabs 0RF pain Patient Instructions: The patient had an opportunity to ask questions regarding treatment plan. The patient expressed understanding and agreement with the above treatment plan. The patient is aware they should contact our office by phone for worsening of their current condition or the appearance of new symptoms. Compliance is encouraged with any medications and followup testing that is ordered. It is a privilege to be allowed the opportunity to participate in the urologic care of your patient. If you have any questions or concerns regarding treatment for the above conditions please do not hesitate to contact me. The office telephone contact is [phone]. This note is constructed in part using voice recognition software. While every effort has been made to ensure accuracy police officer booking errors may have been included. Yours sincerely, Aditya Arevalo MD Coding Level of Care Code Est Pt Level 4 (86271) Diagnoses Enlarged prostate N40.0 Microscopic hematuria R31.29 Lesion of bladder N32.9 Bladder wall thickening N32.89 Former cigar smoker Z87.891
== END 2024-07-22 09:12 | disposition home or self-care (01) ==
LOC: HO.HUSH 07:49
PROVIDERS: PCP Internal Medicine; Visit Provider Urology
DX: N40.0 Benign prostatic hyperplasia without lower urinary tract symptoms (principal); R31.29 Other microscopic hematuria; N32.9 Bladder disorder, unspecified; N32.89 Other specified disorders of bladder; Z87.891 Personal history of nicotine dependence; Z13.9 Encounter for screening, unspecified
CPT/HCPCS: 99214

== ENCOUNTER → 2024-07-22 07:48 | Outpatient (BNVA) | payer MEDICARE, SELFPAY | PROVIDERS: PCP Internal Medicine; Visit Provider Urology | DX: N40.0 Benign prostatic hyperplasia without lower urinary tract symptoms (principal); N32.89 Other specified disorders of bladder; R31.29 Other microscopic hematuria; N32.9 Bladder disorder, unspecified; Z87.891 Personal history of nicotine dependence | CPT/HCPCS: 81003; 99212 ==

== ENCOUNTER 2024-10-01 06:17 | Outpatient (REF) | payer MEDICARE, SELFPAY ==
[2024-10-01 10:26] LABS: MANUAL DIFF FLAG NO
[2024-10-01 10:40] LABS: Hematocrit 39.4 % (42.0-52.0); Hemoglobin 12.9 g/dl (14.0-18.0); Imm Gran Abs Auto 0.02 X10*3/uL (0.00-0.03); Imm Gran Pct Auto 0.3 % (0.0-0.4); Lymphocytes Absolute Auto 1.7 X10*3/uL (1.2-4.9); Mean Corpuscular HGB Conc 32.7 g/dl (31.0-36.0); Mean Corpuscular Hemoglobin 31.8 pg (27.0-33.0); Mean Corpuscular Volume 97.0 fL (80.0-98.0); NRBC Abs Auto 0.000 X10*3/uL (0.0-0.012); NRBC Pct Auto 0.0 /100WBC (0.0-0.2); Platelet Count 249 X10*3/uL (160-400); Red Blood Count 4.06 X10*6/uL (4.60-5.80); White Blood Count 6.2 X10*3/uL (4.8-10.8)
[2024-10-01 10:59] LABS: Alanine Aminotransferase 11 U/L (0-40); Albumin Level 4.1 g/dL (3.5-5.0); Alkaline Phosphatase 63 U/L (39-117); Anion Gap 13 (12-20); Aspartate Amino Transferase 23 U/L (5-37); Blood Urea Nitrogen 27 mg/dL (9-16); Calcium 8.7 mg/dL (8.4-10.2); Carbon Dioxide 21 mmol/L (22-29); Chloride 111 mmol/L (96-108); Cholesterol 149 mg/dL (<200); Estimated Glomerular Filt Rate 51; HDL Cholesterol 48 mg/dL (>40); Potassium 4.7 mmol/L (3.3-5.1); Sodium 140 mmol/L (135-145); Total Protein 7.0 g/dL (6.5-8.0); Triglycerides 102 mg/dL (<150)
== END 2024-10-01 06:18 | disposition home or self-care (01) ==
LOC: HO.HMGCLDS 06:17
PROVIDERS: PCP Internal Medicine; Visit Provider Internal Medicine
DX: I10 Essential (primary) hypertension (principal); E78.5 Hyperlipidemia, unspecified; I49.9 Cardiac arrhythmia, unspecified; I42.9 Cardiomyopathy, unspecified
CPT/HCPCS: 36415; 80053; 80061; 85025

== ENCOUNTER 2024-10-06 10:31 | Outpatient (AMB) | payer MEDICARE, SELFPAY ==
[2024-10-06 10:38] VITALS: BP 118/68; PULSE 68; RESP 18; TEMP 36.6; O2SAT 98; BMI 26.3
--- NOTE | 2024-10-06 10:38 | MHC.PC.OV ---
Vital Signs 10/06/24 10:38 Height 5 ft 9 in Weight 178 lb BMI 26.3 BP 118/68 Blood Pressure Location Lt brachial Position Sitting Respiration 18 Pulse 68 Pulse Source Pulse Oximeter Temp 97.9 F Temp Source Oral Pulse Oximetry (%) 98 Oxygen Delivery Method Room Air Intake Visit Reasons: 6 months f/up Intake Note: Pt is here today for 6 months follow up visit. Allergies regadenoson (From Lexiscan) Adverse Reaction (Intermediate, Verified 10/06/24 10:50) hypotensive sulfamethoxazole (From Bactrim) Adverse Reaction (Intermediate, Verified 10/06/24 10:50) face swelling trimethoprim (From Bactrim) Adverse Reaction (Intermediate, Verified 10/06/24 10:50) face swelling Medication List - Last Reconciled 10/06/24 by Ines Mcdowell MD aspirin (Adult Low Dose Aspirin) 81 mg PO DAILY Held on 06/17/24. Instructions: Resume on 07/01/24. Do not restart if urine is still bloody coenzyme Q10 (CoQ-10) 100 mg PO DAILY finasteride (Proscar) 5 mg PO DAILY glucosamine-chondroitin 250-200 mg (Osteo Bi-Flex) 2 tabs PO TID latanoprost 0.005% 1 drp ophthalmic (eye) BEDTIME lovastatin 40 mg PO DAILY metoprolol succinate ER 50 mg PO BID sacubitril-valsartan 49-51 mg (Entresto) 1 tab PO BID Tobacco use date assessed: 10/06/24 Last assessed Fall Risk: 10/06/24 Dental Screening Dental Screen Date: 10/06/24 Did you have a dental visit in the last 12 months?: Yes Did you have a dental problem in the last 6 months where you did not have access to dental care?: No Was dental information given to patient?: Patient has dentist HPI 6 months f/up HPI Details Patient presents for the follow-up. Hypertension hyperlipidemia controlled on current medications. Patient had cystoscopy for bladder mass which had benign pathology. He is established with urology for chronic microscopic hematuria. Patient complains of chronic hoarseness and sensation of discomfort in the left posterior throat on and off when swallowing. He denies dysphagia odynophagia cough postnasal drip. Patient quit smoking 6 months ago after 60+ years of cigar smoking [facility] Medical History (Updated 10/06/24 @ 12:12 by Ines Mcdowell MD) Hoarseness Former cigar smoker Tobacco consumption Lesion of bladder Microscopic hematuria Cardiomyopathy Post-operative nausea and vomiting Glaucoma CAD (coronary artery disease) Annual physical exam Cataract Hyperlipidemia HTN (hypertension) Surgical History Hx of bilateral cataract extraction History of left hip replacement (~2022) Hx of hernia repair H/O colonoscopy Family History Father Stomach cancer Mother No problems noted. Social History Housing: House Are you a primary critical care nurse practitioner to a significant other at home: No Do you presently have visiting nurse or other home services: No Alcohol intake: never Comment: uses a cane at times Patient Tobacco Use Status: Former Tobacco user Tobacco use type: Cigar e-Cigarette/Vaping Use: Never Used Second Hand Smoke Exposure: No service: Yes Current occupational status: retired Current occupational exposures/hazards: No Cognitive needs: No Hearing needs: No Vision needs: Yes Questionnaire Thrive Questionnaire Date Thrive assessed: 10/06/24 I am a: Patient What is your living situation today?: I have a steady place to live Within the past 12 months, did the food you bought not last and you didn't have the money to get more?: Never true Within the past 12 months, did you worry whether your food would run out before you got money to buy more?: Never true Do you have trouble paying for medicines?: No Do you have trouble getting transportation to medical appointments?: No Do you have trouble paying your heating and electricity bill?: No Do you have trouble taking care of your child, family member or friend?: No Do you have trouble with day-to-day activities such as bathing, preparing meals, shopping, managing finances, etc.?: No Are you currently unemployed and looking for a job?: No Are you interested in more education?: No Please select the resources that you would like help with: None Currently or been in a relationship where the following occur: No concerns reported THRIVE Score: 0 AUDIT C Alcohol Use Questionnaire (AUDIT-C) 1. How often do you have a drink containing alcohol?: Never 3. How often do you have six or more drinks on one occasion?: Never Total Score: 0 RADHA-7 AMB Questionnaire RADHA-7 Date RADHA - 7 assessed: 10/06/24 Feeling nervous, anxious, or on edge: 0 = Not at all Not being able to stop or control worryin = Not at all Worrying too much about different things: 0 = Not at all Trouble relaxin = Not at all Being so restless that it is hard to sit still: 0 = Not at all Becoming easily annoyed or irritable: 0 = Not at all Feeling afraid as if something awful might happen: 0 = Not at all Total RADHA-7 score (0-4 normal; 5-9 mild; 10-14 moderate; 15-21 severe): 0 Source: Developed by Drs. Vivek Gregory, Angelica Lundberg, Joce Horne and colleagues, with an educational digna from [employer]. RADHA-7 Assessment Billing RADHA-7 Assessment Tool: RADHA-7 Assessment 31185 Review of Systems Const All systems reviewed & are unremarkable except as noted in HPI and below Eyes Reports no additional complaints ENT Reports no additional complaints Card Reports no additional complaints Resp Reports no additional complaints GI Reports no additional complaints Reports no additional complaints Physical exam (Primary Care) Vital Signs: Last Vital Signs Temp 97.9 F 10/06/24 10:38 Pulse 68 10/06/24 10:38 Resp 18 10/06/24 10:38 BP 118/68 10/06/24 10:38 Pulse Ox 98 10/06/24 10:38 Oxygen Delivery Method Room Air 10/06/24 10:38 BMI result Body Mass Index 26.3 Tobacco/Smoking Status: Tobacco use Status Tobacco use date assessed 10/06/24 10/06/24 10:39 Patient Tobacco Use Status Former Tobacco user 10/06/24 10:39 Tobacco use type Cigar 10/06/24 10:39 e-Cigarette/Vaping Use Never Used 10/06/24 10:39 Thrive Assessment: Date of Thrive Assessment Date Thrive assessed 10/06/24 10/06/24 10:39 Currently or been in a relationship where the following occur: No concerns reported Const General: no acute distress HENMT Head: Yes normal to inspection Face and sinus: No sinus tenderness Mouth: Normal oral and palatal mucosa present Throat: Yes posterior oropharynx normal Eyes General: appearance normal, both eyes and all related structures Neck Neck: Yes no lymphadenopathy and Yes supple Resp Effort & Inspection: normal respiratory effort Auscultation: clear to auscultation bilaterally Cardio Rhythm: regular rhythm Heart sounds: S1 normal heart sound present and S2 normal heart sound present GI Inspection: Yes normal to inspection Palpation (GI): Soft to palpation Percussion: Yes normal to percussion Auscultation: normal bowel sounds Coding Level of Care Code Est Pt Level 4 (77776) Complex EM visit Add On G2211 Diagnoses Cardiomyopathy I42.9 Lesion of bladder N32.9 Anemia D64.9 Hoarseness R49.0 Hyperlipidemia E78.5 Additional Codes RADHA-7 Assessment Billing - RADHA-7 Assessment Tool: RADHA-7 Assessment 93471 ([id number]) Assessment & Plan Assessment & Plan (1) Cardiomyopathy: Comment: Echo 04/04 left ventricular systolic function 25-30%, global left ventricular hypokinesis, mild diastolic dysfunction, severe septal asymmetric hypertrophy, repeat Echo EF 45%, 07/2023 Code(s): I42.9 - Cardiomyopathy, unspecified Category: Medical Plan: Continue Entresto follow-up with the Cardiology (2) Lesion of bladder: Comment: Status post TURBT 06/17/24-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 Code(s): N32.9 - Bladder disorder, unspecified Category: Medical Plan: Follow-up with urology (3) Anemia: Code(s): D64.9 - Anemia, unspecified Category: Medical Plan: Monitor CBC iron studies and B12 (4) Hoarseness: Code(s): R49.0 - Dysphonia Category: Medical Plan: Referred to ENT (5) Hyperlipidemia: Code(s): E78.5 - Hyperlipidemia, unspecified Category: Medical Plan: Continue statin follow-up in 6 months Orders: Orders Lipid Panel 6 Months D64.9 - Anemia, unspecified, I10 - Essential (primary) hypertension, I42.9 - Cardiomyopathy, unspecified Vitamin B12 and Folate 6 Months D64.9 - Anemia, unspecified, N32.9 - Bladder disorder, unspecified Complete Blood Count Auto Diff 6 Months D64.9 - Anemia, unspecified, I10 - Essential (primary) hypertension, I42.9 - Cardiomyopathy, unspecified Comprehensive [place]. Panel Fast 6 Months D64.9 - Anemia, unspecified, I10 - Essential (primary) hypertension, I42.9 - Cardiomyopathy, unspecified Ferritin 6 Months D64.9 - Anemia, unspecified, N32.9 - Bladder disorder, unspecified IRON PROFILE 6 Months D64.9 - Anemia, unspecified, N32.9 - Bladder disorder, unspecified Referrals Ear/Nose/Throat Referral R49.0 - Dysphonia, Z72.0 - Tobacco use
--- OUTSIDE RECORDS SUMMARY | 2024-10-06 11:42 | XMS_ITS | Clinical Summary ---
Author Organization [facility] Address [address] [place] [address] Phone Care Team Providers Care [employer] Grade Teacher Name Role Phone Ines Mcdowell MD Primary Care Provider [phone] Allergies Active Allergy Reactions Criticality Noted Date [...] 87 03/10/2024 6:42 AM EST Temperature 37 C (98.6 F) 03/10/2024 3:34 AM EST Respiratory Rate 17 [...] Vaccine (1 - 2023-2 5 season) 2023 Cholesterol Screening (Lipid Panel) 03/10/2024 Falls Risk Assessment 03/10/2024 Medicare Annual Wellness Visit 03/10/2024 Social Influencers of Health Screening 03/10/2024 Depression Screening 03/12/2024 Influenza Vaccine (#1) 2024 Hypertension/CHF/CAD Annual BMP Blood Test 03/10/2025 [...] LAB CHEMISTRY METHOD 03/10/2024 5:16 AM EST [facility] Potassium 4.4 3.5 - 5.5 mmol/L LAB CHEMISTRY METHOD 03/10/2024 5:16 AM [facility] Chloride 109 96 - 110 mmol/L LAB CHEMISTRY METHOD 03/10/2024 5:16 AM [facility] CO2 21 21 - 32 mmol/L LAB CHEMISTRY METHOD 03/10/2024 5:16 AM [facility] Anion Gap 6 3 - 11 LAB CHEMISTRY METHOD 03/10/2024 5:16 AM [facility] Glucose 104(H) 70 - 100 mg/dL LAB CHEMISTRY METHOD 03/10/2024 5:16 AM [facility] BUN 29(H) 5 - 25 mg/dL LAB CHEMISTRY METHOD 03/10/2024 5:16 AM [facility] Creatinine 1.75(H) 0.70 - 1.30 mg/dL LAB CHEMISTRY METHOD 03/10/2024 5:16 AM [facility] eGFR 38(L) >=60 mL/min/1. 73m2 LAB CHEMISTRY METHOD 03/10/2024 5:16 AM [facility] Comment:Calculation based on the Chronic Kidney Disease Epidemiology Collaboration (CKD-EPI) equation refit without adjustment for race. BUN/Creatinine Ratio 16.6 LAB CHEMISTRY METHOD 03/10/2024 5:16 AM [facility] Calcium 8.6 8.5 - 10.5 mg/dL LAB CHEMISTRY METHOD 03/10/2024 5:16 AM [facility] AST (SGOT) 18 10 - 42 unit/L LAB CHEMISTRY METHOD 03/10/2024 5:16 AM [facility] ALT (SGPT) 21 10 - 60 unit/L LAB CHEMISTRY METHOD 03/10/2024 5:16 AM [facility] Alkaline Phosphatase 67 42 - 121 unit/L LAB CHEMISTRY METHOD 03/10/2024 5:16 AM [facility] Total Protein 7.2 6.0 - 8.0 g/dL LAB CHEMISTRY METHOD 03/10/2024 5:16 AM EST [facility] Albumin 3.9 3.2 - 5.0 g/dL LAB CHEMISTRY METHOD 03/10/2024 5:16 AM EST [facility] Total Bilirubin 0.3 0.0 - 1.4 mg/dL LAB CHEMISTRY METHOD 03/10/2024 5:16 AM EST [facility] Blood Venous blood specimen / Unknown Venipuncture / Unknown 03/10/2024 3:39 AM EST 03/10/2024 3:46 AM EST us Anshu Berrios MD LAB BLOOD ORDERABLES Final Resu lt [facility] [address] [place] [address], [place] [phone] from Last 3 Months or Most Recently Relevant to Health Maintenance Insurance MEDICARE [facility] Care Teams 5[employer] Grade Teacher Relationship Specialty Start Date End Date Ines Mcdowell MD PCP - General Internal Medicine 03/10/24
== END 2024-10-06 12:02 | disposition home or self-care (01) ==
LOC: HO.HMCC 10:32
PROVIDERS: PCP Internal Medicine; Visit Provider Internal Medicine
DX: I42.9 Cardiomyopathy, unspecified (principal); N32.9 Bladder disorder, unspecified; D64.9 Anemia, unspecified; R49.0 Dysphonia; E78.5 Hyperlipidemia, unspecified; Z23 Encounter for immunization

== ENCOUNTER → 2024-10-06 10:31 | Outpatient (BNVA) | payer MEDICARE, SELFPAY | PROVIDERS: PCP Internal Medicine; Visit Provider Internal Medicine | DX: Z23 Encounter for immunization (principal); I42.9 Cardiomyopathy, unspecified; N32.9 Bladder disorder, unspecified; D64.9 Anemia, unspecified; R49.0 Dysphonia; E78.5 Hyperlipidemia, unspecified | CPT/HCPCS: 90471; 90677; 96127; 99212 ==

== ENCOUNTER 2025-01-19 09:03 | Outpatient (AMB) | payer MEDICARE, SELFPAY ==
--- NOTE | 2025-01-19 09:25 | MHC.OFFVIS ---
Intake Visit Reasons: cysto Intake Note: Patient presents to office today for a cystoscopy Urology Meds:None Allergies to Antibiotics:None Blood Thinner:None Lot#:[id number] Exp:08/19/27 Special Delivery Mail Carrier Required: No Allergies regadenoson (From Lexiscan) Adverse Reaction (Intermediate, Verified 01/19/25 09:29) hypotensive sulfamethoxazole (From Bactrim) Adverse Reaction (Intermediate, Verified 01/19/25 09:29) face swelling trimethoprim (From Bactrim) Adverse Reaction (Intermediate, Verified 01/19/25 09:29) face swelling Medication List - Last Reconciled 01/19/25 by Aditya Arevalo MD aspirin (Adult Low Dose Aspirin) 81 mg PO DAILY Held on 06/17/24. Instructions: Resume on 07/01/24. Do not restart if urine is still bloody coenzyme Q10 (CoQ-10) 100 mg PO DAILY finasteride (Proscar) 5 mg PO DAILY glucosamine-chondroitin 250-200 mg (Osteo Bi-Flex) 2 tabs PO TID latanoprost 0.005% 1 drp ophthalmic (eye) BEDTIME lovastatin 40 mg PO DAILY metoprolol succinate ER 50 mg PO BID sacubitril-valsartan 49-51 mg (Entresto) 1 tab PO BID HPI Comments Details: 01/19/25--Zheng is here for follow-up office cystoscopy. He has had workup for microscopic hematuria and atypical cytology. 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 History of Present Illness The patient is an 84-year-old male presenting with a follow-up for cystoscopy related to microscopic hematuria and cystitis cystica. The microscopic hematuria was initially identified during a workup, leading to a cystoscopy and bladder biopsy performed on June 17, 2024. 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 The patient has been taking finasteride to manage prostate-related symptoms, which appears to be effective as noted by improved urine stream and bladder emptying. The bladder wall thickening remains unchanged but is not worsening. 20 minutes spent in review of records pertaining to this visit and including [id number] discussion with the patient and documentation of this visit. Results - June 17, 2024--Cystoscopy and bladder biopsy on : Revealed cystitis cystica with chronic inflammation - Today--Cystoscopy findings: prostatic urethra trilobar enlargement, Moderate with cellule changes, and multiple small diverticuli bulbous urethra WNL, no suspicious bladder lesions visualized. Plan 1. Microscopic Hematuria - history of nicotine dependence - Continue monitoring with regular follow-ups to assess the condition. - Schedule a follow-up in six months to evaluate the condition further. 3. BPH - Maintain current management plan with finasteride to support bladder function. - Continue observation and reassess during the next follow-up. - psa 07/22/2024--Zheng is an 83-year-old male who was initially evaluated by the nurse practitioner Jessie Jimenez for BPH and workup for microscopic hematuria included findings of atypical cytology and abnormal findings on CT scan noting nodularity on the right side of the bladder. He is status post cystoscopy with TURBT and bladder biopsies. Findings on cystoscopy noted irregular thickening and inflammatory changes on the right side of the bladder there were no papillary masses visualized. Bladder pathology was negative for malignant cells. 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 Also review of operative findings noted significant trabeculations with cellule changes and diverticuli. Bladder scan PVR is 15 mL will start Proscar 5 mg daily follow-up office cystoscopy in 6 months. 05/14/24--Zheng is a very pleasant 83-year-old male patient of Dr. Mcdowell. He has a past medical history of coronary artery disease, cataracts, tobacco consumption smokes cigars daily, hyperlipidemia, and hypertension. He presents to the office today for in office cystoscopy. Of note, patient was seen earlier this week for further assessment evaluation of microscopic hematuria, abnormal cytology, and abnormal CT at which time recommendations were made for urology referral for further assessment evaluation. In office cystoscopy was performed and right-sided bladder wall lesion of 2-3 cm was noted. Previous workup has included CT 05/06 notes focal nodular masslike thickening along the superior aspect of the urinary bladder measuring 1.0 cm. Recommend with direct visualization. No evidence of renal obstruction, no renal or ureteral calculus noted bilaterally. Nonenhancing lesion along the inferior pole of the right kidney measuring 0.7 cm likely representing a proteinaceous cyst. Prostatomegaly. In review of patient's chart it appears urine cytologies: 10/30 Negative for high-grade urothelial carcinoma, 03/04 Atypical urothelial cells, 05/06 Negative for high-grade urothelial carcinoma, 06/03 pending. He does report a longstanding history of cigar smoking over 65 years. However quit last week after results of CT. He does report an episode of gross hematuria a few years ago however does not recall how long ago this was. He describes this as an isolated incident and has not experienced any gross/visible hematuria. He currently denies any bothersome urinary issues. He denies urinary urgency, urinary frequency, incontinence, nocturia, dysuria, foul smelling urine, changes to urinary stream, flank pain, fever, and or chills. He is happy with his current voiding parameters. He does however continue to report right-sided low-back pain. We discussed at length further treatment options to include cystoscopy with transurethral resection of bladder tumor. We discussed risks and benefits of this surgical intervention. All questions were answered. He otherwise offers no other issues or concerns at this time. In review of patient's chart it appears PSA 05/06 1.2 PFSH Medical History Hoarseness Former cigar smoker Tobacco consumption Lesion of bladder Microscopic hematuria Cardiomyopathy Post-operative nausea and vomiting Glaucoma CAD (coronary artery disease) Annual physical exam Cataract Hyperlipidemia HTN (hypertension) Surgical History Hx of bilateral cataract extraction History of left hip replacement (~2022) Hx of hernia repair H/O colonoscopy Family History Father Stomach cancer Mother No problems noted. Social History Housing: House Are you a primary human services care specialist to a significant other at home: No Do you presently have visiting nurse or other home services: No Alcohol intake: never Comment: uses a cane at times Patient Tobacco Use Status: Former Tobacco user Tobacco use type: Cigar e-Cigarette/Vaping Use: Never Used Second Hand Smoke Exposure: No service: Yes Current occupational status: retired Current occupational exposures/hazards: No Cognitive needs: No Hearing needs: No Vision needs: Yes Review of Systems Const All systems reviewed & are unremarkable except as noted in HPI and below Reports no additional complaints Eyes Reports no additional complaints ENT Reports no additional complaints Card Denies dyspnea Resp Denies cough and Denies dyspnea GI Reports no additional complaints Musc Reports no additional complaints Skin/Breast Denies rash and Denies unusual bruising Neuro Reports no additional complaints Psych Reports no additional complaints Endo Reports no additional complaints Cheko/Lymph Reports no additional complaints Aller/Immun Reports no additional complaints Office Procedures Cystoscopy Consent Discussed risk and benefit or proposed procedure with the patient. Information consent for procedure given to the patient. Discussed technical aspects, risks, benefits and alternatives in full. Addressed all of the patient's questions and concerns regarding the procedure. The patient demonstrated knowledge and understanding. They wish to proceed with this procedure. Preparation The patient was prepped in the usual manner. A universal grinder operator was present and in the room. Genitalia was prepped with betadine solution in a sterile manner. Lidocaine Jelly 2% was placed into the urethra and 16Fr flexible Olympus cystoscope was inserted into the meatus after adequate lubrication. Procedure Time out per protocol performed. The flexible cystoscope is passed transurethrally: The bladder was inspected in its entirety with utilization retroflexion displaying: Tumor(s): no suspicious bladder lesions visualized Trabeculation: Moderate with cellule changes, and multiple small diverticuli Mucosal Erthema: Orifices: normal shape and position Urethra: normal Cystoscopy findings: prostatic urethra trilobar enlargement, Moderate with cellule changes, and multiple small diverticuli bulbous urethraWNL, no suspicious bladder lesions visualized [id number] DISPOSABLE SCOPE URO-G FLEXIBLE SCOPE Procedure code (CPT) selection complete Office Meds lidocaine HCl 2 % mucosal jelly in applicator Performing Provider: Aditya Arevalo MD Performing Location: [facility] [place] [facility] Administered by: Merritt Petit LPN on 01/19/25 09:49 Dose Route Admin Location Dispensed Lot Number Expiration Date [facility] Technical Support Specialist 10 mL intra-urethral 20 mL nitrofurantoin monohydrate/macrocrystals 100 mg capsule Performing Provider: Aditya Arevalo MD Performing Location: [facility] [place] [facility] Administered by: Merritt Petit LPN on 01/19/25 09:49 Dose Route Admin Location Dispensed Lot Number Expiration Date [facility] Technical Support Specialist 100 mg PO 1 cap phenazopyridine 200 mg tablet Performing Provider: Aditya Arevalo MD Performing Location: [facility] [place] [facility] Administered by: Merritt Petit LPN on 01/19/25 09:49 Dose Route Admin Location Dispensed Lot Number Expiration Date [employer] Technical Support Specialist 200 mg PO 1 tab Results Reviewed Results Reviewed: Collected: 06/17/24 Location: [facility] Received: 06/17/24 Diagnosis A. Bladder, posterior wall, biopsy: -Benign urothelium with chronic cystitis. -No muscularis propria present. B. Bladder, left lateral wall, biopsy: -Benign urothelium with chronic cystitis. -No muscularis propria present. C. 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 -No muscularis propria present. D. Labeled bladder tumor , transurethral resection: -Predominantly denuded benign urothelium with cystitis cystica et glandularis and prominent granulation tissue. -Muscularis propria present. Clinical History Disorders of bladder Microscopic Description Microscopic sections reviewed. Material Received A. Posterior wall bladder bx's B. Left lateral wall bladder bx's C. Right sided bladder lesion D. Bladder tumor Gross Description Received in four parts. Date of Service: 05/05/24 CT abdomen and pelvis with and without IV contrast. COMPARISON: None FINDINGS: Minimal atelectasis along the lung bases. Moderate hiatal hernia. No focal hepatic lesion. Normal gallbladder. Normal spleen. Normal pancreas. Normal adrenal glands. Duodenal diverticulum present along the 2nd portion. No surrounding inflammatory changes. No right-sided hydronephrosis or hydroureter. Nonenhancing hepatic lesion along the inferior pole of the right kidney with Hounsfield units of 51 measuring (series 5, image 174 and series coronal/6, image 53). Right renal parapelvic cyst measuring 1.6 x 1.1 cm. No right renal or ureteral calculus. No left-sided hydronephrosis or hydroureter. No left renal or ureteral calculus. Normal appendix. Mild moderate colonic stool burden. No bowel obstruction. Moderate distal colonic diverticulosis without evidence of diverticulitis. There is diffuse thickening of the mucosa of the proximal sigmoid colon, likely representing diverticulosis coli. No mesenteric or retroperitoneal lymphadenopathy. Moderate aortoiliac atherosclerotic vascular calcifications. Evaluation of the pelvis is mildly limited secondary to left total hip arthroplasty. Mild diffuse thickening of the mucosa of the urinary bladder. Focal nodular/masslike thickening of the mucosa of the urinary bladder along the superior aspect measuring 1.0 x 0.8 cm (series coronal/10, image 52). Prostate calcifications present. Prostate is enlarged measuring up to 5.2 cm. Partially visualized left hip arthroplasty. Advanced degenerative changes of the right hip with bslk-jn-czad apposition and prominent subchondral cysts within the femoral head and acetabulum. Visualized bones of the pelvis appear intact. Grade 1 anterolisthesis of L5 on S1, degenerative. Bone island present within the L2 vertebral body. Bmdy-en-qlctgcoz spondylosis. IMPRESSION: 1. Focal nodular/masslike thickening along the superior aspect of the urinary bladder measuring 1.0 x 0.8 cm. Recommend direct visualization. 2. No evidence of renal obstruction. No renal or ureteral calculus bilaterally. 3. Nonenhancing lesion along the inferior pole of the right kidney measuring up to 0.7 cm 0.7 cm, likely representing a proteinaceous cyst. 4. Colonic diverticulosis without evidence of diverticulitis. Diffuse thickening of the mucosa of the sigmoid colon likely secondary to diverticulosis coli. 5. Prostatomegaly. 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 Code(s): N32.9 - Bladder disorder, unspecified Category: Medical (4) Bladder wall thickening: Code(s): N32.89 - Other specified disorders of bladder Category: Medical (5) Former cigar smoker: Code(s): Z87.891 - Personal history of nicotine dependence Category: Social Hx (6) BPH (benign prostatic hyperplasia): Code(s): N40.0 - Benign prostatic hyperplasia without lower urinary tract symptoms Category: Medical Plan Plan 1. Microscopic Hematuria - history of nicotine dependence - Continue monitoring with regular follow-ups to assess the condition. - Schedule a follow-up in six months to evaluate the condition further. 3. BPH - Maintain current management plan with finasteride to support bladder function. - Continue observation and reassess during the next follow-up. - psa Orders: Orders AMB Cystoscopy Today N32.9 - Bladder disorder, unspecified, N40.0 - Benign prostatic hyperplasia without lower urinary tract symptoms, R31.29 - Other microscopic hematuria PSA,Total (Free>4and<10) 5 Months N40.0 - Benign prostatic hyperplasia without lower urinary tract symptoms Medications: Refilled finasteride (Proscar) 5 mg PO DAILY 90 tabs 3RF Patient Instructions: The patient had an opportunity to ask questions regarding treatment plan. The patient expressed understanding and agreement with the above treatment plan. The patient is aware they should contact our office by phone for worsening of their current condition or the appearance of new symptoms. Compliance is encouraged with any medications and followup testing that is ordered. It is a privilege to be allowed the opportunity to participate in the urologic care of your patient. If you have any questions or concerns regarding treatment for the above conditions please do not hesitate to contact me. The office telephone contact is [phone]. This note is constructed in part using voice recognition software. While every effort has been made to ensure accuracy food consultant errors may have been included. Yours sincerely, Aditya Arevalo MD Scribe Plan - Not visible on output: Patient was informed and verbally consented to the use of an ambient scribe for clinic note documentation during this visit. Coding Level of Care Code Est Pt Level 3 (67229) Complex EM visit Add On G2211 Diagnoses Enlarged prostate N40.0 Microscopic hematuria R31.29 Lesion of bladder N32.9 Bladder wall thickening N32.89 Former cigar smoker Z87.891 BPH (benign prostatic hyperplasia) N40.0 CPT Codes Cystoscopy - CPT: [id number] ([id number])
--- OUTSIDE RECORDS SUMMARY | 2025-01-19 09:41 | XMS_ITS | Clinical Summary ---
Author Organization [facility] Address [address] [place] [address] Phone Care Team Providers Care Electronic Heat Seal Operator Name Role Phone Ines Mcdowell MD Primary Care Provider [phone] Allergies Active Allergy Reactions Criticality Noted Date [...] nts (1 - 1-dose 75+ series) 10/02/2015 Cholesterol Screening (Lipid Panel) 03/10/2024 Falls Risk Assessment 03/10/2024 Medicare Annual Wellness Visit 03/10/2024 Social Influencers of Health Screening 03/10/2024 Depression Screening 03/12/2024 COVID-19 Vaccine (1 - 2023-2 5 season) 2024 Influenza Vaccine (#1) 2024 Hypertension/CHF/CAD Annual BMP [...] LAB CHEMISTRY METHOD 03/10/2024 5:16 AM EST [facility] Potassium 4.4 3.5 - 5.5 [...] [facility] Comment:Calculation based on the Chronic Kidney [...] LAB CHEMISTRY METHOD 03/10/2024 5:16 AM EST [facility] Albumin 3.9 3.2 - 5.0 g/dL LAB CHEMISTRY METHOD 03/10/2024 5:16 AM EST [facility] Total Bilirubin 0.3 0.0 - 1.4 mg/dL LAB CHEMISTRY METHOD 03/10/2024 5:16 AM EST [facility] Blood Venous blood specimen / Unknown Venipuncture / Unknown 03/10/2024 3:39 AM EST 03/10/2024 3:46 AM EST us Anshu Berrios MD LAB BLOOD ORDERABLES Final Resu lt [facility]) [facility] [address] [place] [address], [place] [phone] from Last 3 Months or Most Recently Relevant to Health Maintenance Insurance MEDICARE [facility] Care Teams Electronic Heat Seal Operator Relationship Specialty Start Date End Date Ines Mcdowell MD PCP - General Internal Medicine 03/10/24
== END 2025-01-19 10:11 | disposition home or self-care (01) ==
LOC: HO.HUSH 09:04
PROVIDERS: PCP Internal Medicine; Visit Provider Urology
DX: N40.0 Benign prostatic hyperplasia without lower urinary tract symptoms (principal); R31.29 Other microscopic hematuria; N32.9 Bladder disorder, unspecified; N32.89 Other specified disorders of bladder; Z87.891 Personal history of nicotine dependence; Z13.9 Encounter for screening, unspecified
CPT/HCPCS: 52000; 99213

== ENCOUNTER → 2025-01-19 09:03 | Outpatient (BNVA) | payer MEDICARE, SELFPAY | PROVIDERS: PCP Internal Medicine; Visit Provider Urology | DX: N40.0 Benign prostatic hyperplasia without lower urinary tract symptoms (principal); R31.29 Other microscopic hematuria; N32.9 Bladder disorder, unspecified; N32.89 Other specified disorders of bladder; Z87.891 Personal history of nicotine dependence; Z98.890 Other specified postprocedural states | CPT/HCPCS: 52000; 81003; 99212 ==

== ENCOUNTER → 2025-03-02 12:39 | Outpatient (REF) | payer MEDICARE, SELFPAY ==
--- NOTE | 2025-03-02 12:42 | CA_ITS ---
Transthoracic Echocardiogram Patient (Last, First, Middle): Zheng Juarez T Gender: M Date of : 1940 Age: 84 Procedure Date: 03/02/2025 Procedure Type: Transthoracic Echocardiogram Location: OP Height: 175.26 cm Weight: 80.74 kg BSA: 1.97 m2 Heart Rate: 57 bpm BP: 120 / 68 mmHg Apron Cleaner: JOHANA Referring MD: Omid Vuong MD Management Intern: Omid Vuong MD Symptoms: I42.9 - Cardiomyopathy, unspecified Study Quality: Adequate ECG Rhythm: Sinus arrhythmia Conclusions: - 1. Low normal LV EF of 50-55% with impaired relaxation filling pattern 2. Calcific aortic and mitral valve changes noted with normal cardiac valvular Dopplers 3. Normal RV systolic pressure 4. Mildly dilated ascending aorta at 3.7 cm 5. No gross pericardial effusion Findings Left Ventricle Normal left ventricular cavity size. There is normal left ventricular wall thickness. The left ventricular systolic function is low normal. The visually estimated ejection fraction is between 50-55%. Spectral Doppler is indicative of an impaired relaxation filling pattern. E/E prime ratio is between 8 and 15 consistent with indeterminate filling pressures. Right Ventricle Normal right ventricular cavity size and systolic function. Atria The left atrium is likely dilated. There is no evidence of interatrial shunt. The right atrium is normal in size. Aortic Valve There is mild calcification of the aortic valve. There is no aortic valve stenosis. There is no aortic valve regurgitation. Mitral Valve There is mild anterior and posterior mitral leaflet thickening. There is trace mitral valve regurgitation. There is no mitral valve stenosis. Pulmonic Valve The pulmonic valve is likely normal. Tricuspid Valve Normal tricuspid valve structure. There is mild tricuspid valve regurgitation. The right ventricular systolic pressure is normal. The right ventricular systolic pressure is 34 mmHg. Normal right atrial pressure. There is no evidence of pulmonary hypertension. Great Vessels The pulmonary artery was not well visualized. There is mild dilatation of the ascending aorta measuring 3.70 cm. Small plaque is seen in the sino tubular ridge. Venous The inferior vena cava is normal in size and collapses greater than 50% with inspiration. Pericardium/Pleural There is no evidence of pericardial effusion. Prior Study Comparison No significant change compared to prior study dated: 03/03/2024. Measurements 2D Linear Measurements IVSd: 1.03 0.6-0.9/0.6-1.0 cm LVIDd: 5.64 3.9-5.3/4.2-5.9 cm LVIDd Index: 2.86 2.4-3.2/2.2-3.1 cm/m2 LVIDs: 3.89 2.0-3.6 cm LVPWd: 1.00 0.7-1.1 cm LA Diam: 3.30 2.7-3.8/3.0-4.0 cm LAIDs Index: 1.68 1.5-2.3 cm/m2 LV Mass: 282.68 67-162/88-224 g LV Mass Index: 143.49 43-95/49-115 g/m2 LVOT Diam: 2.20 3.0+(-)1.3 cm 2D Systolic Function EF 4C: 54.10 >55% EF 2C: 49.10 >55% EF BiP: 51.70 >55% Mitral Valve MV Pk E: 0.63 MV PK A: 0.96 MV Decel Time: 248.00 E/A: 0.70 PHT: 73.00 MVA PHT: 3.01 Decel [place]: 2.54 Aortic Valve AoV Pk Dany: 1.16 AoV Pk Grad: 5.00 BHARTI: 2.72 LVOT LVOT Pk Dany: 0.83 LVOT Mn Dany: 0.58 LVOT VTI: 0.18 LVOT Pk Grad: 3.00 LVOT Mn Grad: 2.00 LVOT Diam: 2.20 LVOT Area: 3.80 Diastolic Function MV Pk E: 0.63 MV Pk A: 0.96 E/A: 0.70 Right Ventricle TAPSE (mm): 27.20 Tricuspid Valve TR Pk Dany: 2.78 TR Pk Grad: 31.00 RA Press: 3.00 RVSP: 34.00 Great Vessels Aorta Sinus of Valsalva: 3.80 2.0-3.5 cm Ao Asc: 3.70 2.1-3.4 cm Ao Arch: 2.90 Pulmonary Veins Pulm Vein S/D 1.40 Pulmonary Valve PV Pk Dany: 1.71 Peak PV Grad: 12.00 MO Pk Dany: 1.91 Updated in Other Vendor System with Status of Final Omid Vuong MD electronically signed on 03/03/2025 4:46:19 PM with status of Final
--- OUTSIDE RECORDS SUMMARY | 2025-03-02 15:47 | XMS_ITS | Clinical Summary ---
Author Organization [facility] Address [address] [place] [address] Phone Care Team Providers Care Chain Saw Driver Name Role Phone Ines Mcdowell MD Primary Care Provider [phone] Allergies Active Allergy Reactions Criticality Noted Date [...] on file Sexual Orientation Not on file Last Filed Vital Signs Vital Sign Reading [...] Depression Screening 03/12/2024 COVID-19 Vaccine (1 - 2024-2 6 season) 2024 Influenza Vaccine (#1) 2024 Hypertension/CHF/CAD [...] mmol/L LAB CHEMISTRY METHOD 03/10/2024 5:16 AM [facility] Chloride 109 96 - 110 mmol/L LAB CHEMISTRY METHOD 03/10/2024 5:16 AM [facility] CO2 21 21 - 32 mmol/L LAB CHEMISTRY METHOD 03/10/2024 5:16 AM [facility] Anion Gap 6 3 - 11 LAB CHEMISTRY METHOD 03/10/2024 5:16 AM [facility] Glucose 104(H) 70 - 100 mg/dL LAB CHEMISTRY METHOD 03/10/2024 5:16 AM [facility] BUN 29(H) 5 - 25 mg/dL LAB CHEMISTRY METHOD 03/10/2024 5:16 AM [facility] Creatinine 1.75(H) 0.70 - 1.30 mg/dL LAB CHEMISTRY METHOD 03/10/2024 5:16 AM [facility] eGFR 38(L) >=60 mL/min/1. 73m2 LAB CHEMISTRY METHOD 03/10/2024 5:16 AM [facility] Comment:Calculation based on the Chronic Kidney Disease Epidemiology Collaboration (CKD-EPI) equation refit without adjustment for race. BUN/Creatinine Ratio 16.6 LAB CHEMISTRY METHOD 03/10/2024 5:16 AM [facility] Calcium 8.6 8.5 - 10.5 mg/dL LAB CHEMISTRY METHOD 03/10/2024 5:16 AM [facility] AST (SGOT) 18 10 - 42 unit/L LAB CHEMISTRY METHOD 03/10/2024 5:16 AM [facility] ALT (SGPT) 21 10 - 60 unit/L LAB CHEMISTRY METHOD 03/10/2024 5:16 AM [facility] Alkaline Phosphatase 67 42 - 121 unit/L LAB CHEMISTRY METHOD 03/10/2024 5:16 AM [facility] Total Protein 7.2 6.0 - 8.0 g/dL LAB CHEMISTRY METHOD 03/10/2024 5:16 AM EST [facility] Albumin 3.9 3.2 - 5.0 g/dL LAB CHEMISTRY METHOD 03/10/2024 5:16 AM EST [facility] Total Bilirubin 0.3 0.0 - 1.4 mg/dL LAB CHEMISTRY METHOD 03/10/2024 5:16 AM EST [facility] Blood Venous blood specimen / Unknown Venipuncture / Unknown 03/10/2024 3:39 AM EST 03/10/2024 3:46 AM EST us Anshu Berrios MD LAB BLOOD ORDERABLES Final Resu lt [facility] [address] [place] [address], [place] [phone] from Last 3 Months or Most Recently Relevant to Health Maintenance [place] [address] MEDICARE [facility] Care Teams Chain Saw Driver Relationship Specialty Start Date End Date Ines Mcdowell MD PCP - General Internal Medicine 03/10/24
== END ==
LOC: HO.CARD 12:39
PROVIDERS: PCP Internal Medicine; Visit Provider Internal Medicine Cardiovascular Disease
DX: I42.9 Cardiomyopathy, unspecified (principal)
CPT/HCPCS: 93306

== ENCOUNTER → 2025-03-02 12:42 | Outpatient (BNV) | payer MEDICARE, SELFPAY | PROVIDERS: PCP Internal Medicine; Visit Provider Internal Medicine Cardiovascular Disease | DX: I77.810 Thoracic aortic ectasia (principal); I35.8 Other nonrheumatic aortic valve disorders; I34.89 Other nonrheumatic mitral valve disorders | CPT/HCPCS: 93306 ==

== ENCOUNTER 2025-03-10 09:30 | Outpatient (AMB) | payer MEDICARE, SELFPAY ==
[2025-03-10 09:47] VITALS: BP 122/80; PULSE 60; BMI 26.7
--- NOTE | 2025-03-10 09:47 | MHC.OFFVIS ---
Vital Signs 03/10/25 09:47 Height 5 ft 9 in Weight 180 lb 12.465 oz BMI 26.7 BP 122/80 Blood Pressure Location Lt brachial Position Sitting Pulse 60 Intake Visit Reasons: 1 yr f/up s/p echo Intake Note: 1 year follow-up with ekg after echo feeling good Clamshell Operator Required: No Allergies regadenoson (From Lexiscan) Adverse Reaction (Intermediate, Verified 01/19/25 09:29) hypotensive sulfamethoxazole (From Bactrim) Adverse Reaction (Intermediate, Verified 01/19/25 09:29) face swelling trimethoprim (From Bactrim) Adverse Reaction (Intermediate, Verified 01/19/25 09:29) face swelling Medication List - Last Reconciled 03/10/25 by Omid Vuong MD aspirin (Adult Low Dose Aspirin) 81 mg PO DAILY Held on 06/17/24. Instructions: Resume on 07/01/24. Do not restart if urine is still bloody coenzyme Q10 (CoQ-10) 100 mg PO DAILY finasteride (Proscar) 5 mg PO DAILY glucosamine-chondroitin 250-200 mg (Osteo Bi-Flex) 2 tabs PO TID latanoprost 0.005% 1 drp ophthalmic (eye) BEDTIME lovastatin 40 mg PO DAILY metoprolol succinate ER 50 mg PO BID sacubitril-valsartan 49-51 mg (Entresto) 1 tab PO BID HPI Comments Details: Zheng comes for follow-up. Overall he has been doing well from cardiac perspective. Walks with a cane. However he denies any symptoms of heart failure. Denies orthopnea, PND, leg edema. No worsening shortness of breath. No lightheadedness, syncope. Tolerating his medications. No exertional chest pain. No prolonged palpitation irregular heartbeat. Most recent echocardiogram showed LVEF of 50-55%. [facility] Medical History Hoarseness Former cigar smoker Tobacco consumption Lesion of bladder Microscopic hematuria Cardiomyopathy Post-operative nausea and vomiting Glaucoma CAD (coronary artery disease) Annual physical exam Cataract Hyperlipidemia HTN (hypertension) Surgical History Hx of bilateral cataract extraction History of left hip replacement (~2022) Hx of hernia repair H/O colonoscopy Family History Father Stomach cancer Mother No problems noted. Social History Housing: House Are you a primary manager critical care unit to a significant other at home: No Do you presently have visiting nurse or other home services: No Alcohol intake: never Comment: uses a cane at times Patient Tobacco Use Status: Former Tobacco user Tobacco use type: Cigar e-Cigarette/Vaping Use: Never Used Second Hand Smoke Exposure: No service: Yes Current occupational status: retired Current occupational exposures/hazards: No Cognitive needs: No Hearing needs: No Vision needs: Yes Review of Systems Const Denies chills, Denies fatigue, Denies fever(s), Denies frequent falls, Denies weakness, Denies weight gain and Denies weight loss ENT Denies dizziness Card Denies chest pain, Denies leg edema, Denies lightheadedness, Denies palpitations, Denies dyspnea, Denies dyspnea on exertion, Denies orthopnea and Denies other (loss of consciousness) Resp Denies cough, Denies dyspnea and Denies dyspnea on exertion GI Denies hematochezia and Denies change in stool character Musc Denies abnormal gait, Denies muscle weakness, Denies numbness, Denies radiating pain into limb and Denies tingling Neuro Denies Abnormal speech present, Denies abnormal gait, Denies dizziness, Denies frequent falls, Denies numbness, Denies tingling and Denies weakness Endo Denies fatigue and Denies palpitations Physical Exam Vital Signs: Last Vital Signs Pulse 60 03/10/25 09:47 BP 122/80 03/10/25 09:47 BMI result Body Mass Index 26.7 Const General: cooperative, comfortable, no acute distress, alert, awake and Physically active Nutritional Appearance: average body habitus Orientation/consciousness: patient oriented x3 Limitations: no limitations HEENT Head: Yes normocephalic and Yes atraumatic Neck Neck: Yes trachea midline, Yes supple and Yes no JVD Resp Effort & Inspection: normal respiratory effort Auscultation: clear to auscultation bilaterally Cardio Jugular venous distension: no JVD Palpation: abnormal PMI displaced PMI Rate: regular rate Rhythm: abnormal rhythm with ectopic beats Heart sounds: S1 normal heart sound present, S2 normal heart sound present, no click, no gallops and Murmur heart sound present systolic early GI Auscultation: normal bowel sounds Skin General skin exam: no rashes or lesions noted Neuro General: patient oriented x3 and no focal motor deficits Speech: No Abnormal speech present Extrem General: Yes no clubbing, cyanosis or edema Psych Appearance: grossly normal Office Procedures EKG Details: EKGs shows normal sinus rhythm with sinus arrhythmias with intraventricular conduction block with left bundle morphology [id number], Complete Assessment & Plan Assessment & Plan (1) Cardiomyopathy: Comment: Echo 04/04 left ventricular systolic function 25-30%, global left ventricular hypokinesis, mild diastolic dysfunction, severe septal asymmetric hypertrophy, repeat Echo EF 45%, 07/2023 Code(s): I42.9 - Cardiomyopathy, unspecified Category: Medical Plan: Cardiomyopathy process with improved LV EF on current neurohormonal modulation with metoprolol as well as Entresto therapy. Continue the same. No signs or symptoms of heart failure. Continue with neurohormonal modulation which has shown to avoid negative cardiac remodeling. Will continue follow with echocardiogram in his year's time. Advised to avoid cardiotoxic agents. Signs and symptoms of heart failure were discussed. He understands. (2) CAD (coronary artery disease): Comment: Om 75-80% disease by cardiac catheterization, no symptoms of angina Code(s): I25.10 - Atherosclerotic heart disease of [place] coronary artery without angina pectoris Category: Medical Plan: CAD without symptoms of angina. Continue aspirin therapy. Continue lipid modification with goal LDL less than 70 mg/dL. Blood pressure is currently well optimized on current medications. Advised to monitor blood pressure at home maintain a log. Will follow up in the clinic in 1 year's time, sooner PRN. Thank you for allowing me to partake in his care Orders: Orders CA echo transthoracic complete 1 Year I42.9 - Cardiomyopathy, unspecified Coding Level of Care Code Est Pt Level 4 (03383) Diagnoses Cardiomyopathy I42.9 CAD (coronary artery disease) I25.10 CPT Codes EKG - CPT: 99913-[id number], Complete ([id number])
--- OUTSIDE RECORDS SUMMARY | 2025-03-10 12:13 | XMS_ITS | Clinical Summary ---
Author Organization [facility] Address [address] [place] [address] Phone Care Team Providers Care Pouncer Machine Name Role Phone Ines Mcdowell MD Primary Care Provider [phone] Allergies Active Allergy Reactions Criticality Noted Date [...] LAB CHEMISTRY METHOD 03/10/2024 5:16 AM EST [facility] Potassium 4.4 3.5 - 5.5 mmol/L LAB CHEMISTRY METHOD 03/10/2024 5:16 AM [facility] Chloride 109 96 - 110 mmol/L LAB CHEMISTRY METHOD 03/10/2024 5:16 AM [facility] CO2 21 21 - 32 mmol/L LAB CHEMISTRY METHOD 03/10/2024 5:16 AM [facility] Anion Gap 6 3 - 11 LAB CHEMISTRY METHOD 03/10/2024 5:16 AM [facility] Glucose 104(H) 70 - 100 mg/dL LAB CHEMISTRY METHOD 03/10/2024 5:16 AM [facility] BUN 29(H) 5 - 25 mg/dL LAB CHEMISTRY METHOD 03/10/2024 5:16 AM [facility] Creatinine 1.75(H) 0.70 - 1.30 mg/dL LAB CHEMISTRY METHOD 03/10/2024 5:16 AM [facility] eGFR 38(L) >=60 mL/min/1. 73m2 LAB CHEMISTRY METHOD 03/10/2024 5:16 AM [facility] Comment:Calculation based on the Chronic Kidney Disease Epidemiology Collaboration (CKD-EPI) equation refit without adjustment for race. BUN/Creatinine Ratio 16.6 LAB CHEMISTRY METHOD 03/10/2024 5:16 AM [facility] Calcium 8.6 8.5 - 10.5 mg/dL LAB CHEMISTRY METHOD 03/10/2024 5:16 AM [facility] AST (SGOT) 18 10 - 42 unit/L LAB CHEMISTRY METHOD 03/10/2024 5:16 AM [facility] ALT (SGPT) 21 10 - 60 unit/L LAB CHEMISTRY METHOD 03/10/2024 5:16 AM [facility] Alkaline Phosphatase 67 42 - 121 unit/L LAB CHEMISTRY METHOD 03/10/2024 5:16 AM [facility] Total Protein 7.2 6.0 - 8.0 g/dL LAB CHEMISTRY METHOD 03/10/2024 5:16 AM EST [facility] Albumin 3.9 3.2 - 5.0 g/dL LAB CHEMISTRY METHOD 03/10/2024 5:16 AM EST [facility] Total Bilirubin 0.3 0.0 - 1.4 mg/dL LAB CHEMISTRY METHOD 03/10/2024 5:16 AM EST [facility] Blood Venous blood specimen / Unknown Venipuncture / Unknown 03/10/2024 3:39 AM EST 03/10/2024 3:46 AM EST us Anshu Berrios MD LAB BLOOD ORDERABLES Final Resu lt [facility] ([facility]) [facility] [address] [place] [address], [place] [phone] from Last 3 Months or Most Recently Relevant to Health Maintenance [place] [address] MEDICARE [facility] Care Teams Pouncer Machine Relationship Specialty Start Date End Date Ines Mcdowell MD PCP - General Internal Medicine 03/10/24
== END 2025-03-10 10:04 | disposition home or self-care (01) ==
LOC: HO.HCS 09:30
PROVIDERS: PCP Internal Medicine; Visit Provider Internal Medicine Cardiovascular Disease
DX: I42.9 Cardiomyopathy, unspecified (principal); I25.10 Atherosclerotic heart disease of native coronary artery without angina pectoris
CPT/HCPCS: 93010; 99214

== ENCOUNTER → 2025-03-10 09:30 | Outpatient (BNVA) | payer MEDICARE, SELFPAY | PROVIDERS: PCP Internal Medicine; Visit Provider Internal Medicine Cardiovascular Disease | DX: I42.9 Cardiomyopathy, unspecified (principal); I25.10 Atherosclerotic heart disease of native coronary artery without angina pectoris; I10 Essential (primary) hypertension | CPT/HCPCS: 93005; 99212 ==